=== PATIENT | female | born 1935 | race Caucasian/White ===

== ENCOUNTER → 2016-12-23 | Outpatient (CLI) | payer OTHER ==
[~2016-12-23] MED LIST: AMLO2.5T PO; CALC-51 PO; CMD4 PO; GLUCTAB7 PO; METO50TA7 PO; PRED1SUS OPL; VITAMIN E PO
[2016-12-23 09:48] LABS: INR 1.9 (0.9-1.1); PROTHROMBIN TIME (PATIENT) 21.1 SECONDS (9.0-12.0)
== END | disposition home or self-care (01) ==
LOC: C.LABVPSUW 09:26
PROVIDERS: ATTEND Internal Medicine Critical Care Medicine
DX: I48.91 Unspecified atrial fibrillation (principal)

== ENCOUNTER → 2017-01-20 | Outpatient (CLI) | payer OTHER ==
[2017-01-20 10:54] LABS: INR 1.5 (0.9-1.1); PROTHROMBIN TIME (PATIENT) 16.4 SECONDS (9.0-12.0)
== END | disposition home or self-care (01) ==
LOC: C.LABVPSUW 10:23
PROVIDERS: ATTEND Internal Medicine Critical Care Medicine
DX: I48.91 Unspecified atrial fibrillation (principal)

== ENCOUNTER → 2017-02-05 | Outpatient (CLI) | payer OTHER ==
[2017-02-05 09:11] LABS: PROTHROMBIN TIME (PATIENT) 22.4 SECONDS (9.0-12.0)
== END | disposition home or self-care (01) ==
LOC: C.LABVPSUW 08:43
PROVIDERS: ATTEND Internal Medicine Critical Care Medicine
DX: I48.91 Unspecified atrial fibrillation (principal)

== ENCOUNTER → 2017-03-05 | Outpatient (CLI) | payer OTHER ==
[2017-03-05 09:59] LABS: PROTHROMBIN TIME (PATIENT) 22.4 SECONDS (9.0-12.0)
== END ==
LOC: C.LABVPSUW 09:01
PROVIDERS: ATTEND Internal Medicine Critical Care Medicine
DX: I48.91 Unspecified atrial fibrillation (principal)

== ENCOUNTER → 2017-04-03 | Outpatient (CLI) | payer OTHER ==
[2017-04-03 09:22] LABS: INR 1.8 (0.9-1.1); PROTHROMBIN TIME (PATIENT) 20.3 SECONDS (9.0-12.0)
== END ==
LOC: C.LABVPSUW 09:01
PROVIDERS: ATTEND Internal Medicine Critical Care Medicine
DX: I48.91 Unspecified atrial fibrillation (principal)

== ENCOUNTER → 2017-04-15 | Day surgery (SDC) | payer OTHER ==
[2017-04-09 09:56] VITALS: Ht 162.6 cm; Wt 50.9 kg
[~2017-04-15] VITALS: Ht 162.6 cm; Wt 50.9 kg
[~2017-04-15] MED LIST changes: +500ML BSS 0.3ML EPI 1:1000PF IRRIG ONE; +ACETAMINOPHEN 325 MG TAB PO PRN; +ATROPINE SULFATE 0.1 MG/ML 5ML SYR IV PRN; +AcetaZOLAMIDE 250 MG TAB PO SCH; +BETAXOLOL HCL 0.25% OP SUSP PER DROP CHARGE OPL SCH; +BRIMONIDINE TART 0.2% OP SOLN PER DROP CHARGE ONE; +BSS FLUSH ONE; +ENDOCOAT 0.85ML SYRINGE INT OCU ONE; +EpINEphrine INJ 1MG/ML AMP 1 MG/ML AMP ONE; +LACTATED RINGER'S 1000ML 500 ML IV SCH; +LIDOCAINE 4% OP SOLN DROP CHARGE ONE; +LIDOCAINE 4% OP SOLN DROP CHARGE OPL SCH; +LIDOCAINE HCL 1% MPF 2 ML VIAL ONE; +MIDAZOLAM HCL 1 MG/ML 2ML VIAL ONE; +MIX: 4ML BSS 1ML EPI 1:1000 PF INSTIL ONE; +MOXIFLOXACIN OPH SOLN PER DROP CHARGE ONE; +OCUCOAT 1 ML SOLN IO ONE; +PHENYLEPHRINE HCL 10% OP SOLN 5 ML BTL OPL SCH; +POVIDONE-IODINE OP SOLN 30 ML BTL ONE; +PROPARACAINE 0.5% OP SOLN PER DROP CHARGE OPL SCH; +PROPARACAINE HCL 0.5% OP SOLN 15 ML BTL OPL ONE; +TOBRAMYCIN/DEXAMETHASONE OPH OINT PER APPLN CHARGE ONE
[2017-04-15] MEDS: PHENYLEPHRINE HCL 2.5% OP SOLN PER DROP CHARGE OPL SCH ×2 (06:37→06:44)
[2017-04-15] MEDS: TROPICAMIDE 1% OP SOLN PER DROP CHARGE OPL SCH ×2 (06:38→06:45)
--- NOTE | 2017-04-15 06:38 | History & Physical Bridge - [place] ---
H&P Re-Evaluation Bridge Note: I have examined the patient, reviewed the History & Physical and in the interval since the performance of the History & Physical I have noted the following changes of clinical significance: No changes noted
[2017-04-15] MEDS: CYCLOPENTOLATE HCL 1% OP SOLN PER DROP CHARGE OPL SCH ×2 (06:41→06:46)
[2017-04-15] MEDS: MOXIFLOXACIN OPH SOLN PER DROP CHARGE OPL SCH ×2 (06:42→06:50)
--- NOTE | 2017-04-15 07:27 | Discharge Instructions-SurgCtr ---
Discharge Instructions Date of Service April 15, 2017. Visit Reason for Visit: Cataract Left Eye Discharge Discharge Diagnosis / Problem: lens implant left eye Discharge Goals Goal(s): Improve function Activity Recommendations Activity Limitations: resume your previous activity Lifting Limitations: no more than 10 pounds Exercise/Sports Limitations: gradually increase as tolerated May Resume Sexual Activity: when tolerated Shower/Bathe: tomorrow Driving or Machine Use: resume 1 day after discharge Anesthesia . Post Anesthesia Instructions: If you have had General Anesthesia or IV Sedation: * Do not drive today. * Resume driving when surgeon permits. * Do not make important decisions or sign legal documents today. * Call surgeon for: 1. Temperature elevations greater than 101 degrees F. 2. Uncontrollable pain. 3. Excessive bleeding. 4. Persistent nausea and vomiting. 5. Medication intolerance (nausea, vomiting or rash). * For nausea and vomiting use only clear liquids such as: tea, soda, bouillon until nausea subsides, then gradually increase diet as tolerated. * If you have any concerns or questions, call your surgeon's office. If physician is unavailable and it is an emergency, call 911 or go to the nearest emergency room. . Instructions / Follow-Up Instructions / Follow-Up ACTIVITY RECOMMENDATIONS: * Light activities. * Mild irritation and blurred vision are common for the first few days. * You may walk outside, read, watch television. * Redness around the white part of the eye is common. MEDICATIONS: Resume previous medications unless instructed otherwise by your surgeon. * Take white Diamox (Acetazolamide) tablet at 1 pm today. Start all eye drops at 1 pm today: * Eye drops (today and tomorrow): Prednisone - one drop in operative eye every 3 hours while awake Ofloxacin - one drop in operative eye every 3 hours while awake SPECIAL CARE INSTRUCTIONS: * Tape plastic shield over eye to sleep at night. Call your doctor at with any concerns or problems. FOLLOW UP VISIT: Follow-up with Dr Walker at [place] office as scheduled. Diet Recommendations Home Diet: no limitations Procedures Procedures Performed: LEFT EYE FEMTOSECOND LASER Pending Studies Studies pending at discharge: no Medical Emergencies . Who to Call and When: Medical Emergencies: If at any time you feel your situation is an emergency, please call 911 immediately. . Non-Emergent Contact Non-Emergency issues call your: Assemblyman Or Woman Call Non-Emergent contact if: your pain is not controlled [phone] . . "Provider Documentation" section prepared by Xavier Walker. .
--- NOTE | 2017-04-15 07:32 | [facility] Operative Report ---
Operative Report Date of Service April 15, 2017. Operative Report 1. PREOPERATIVE DIAGNOSIS: Senile nuclear cataract, left eye. 2. POSTOPERATIVE DIAGNOSIS: Senile nuclear cataract, left eye. 3. PROCEDURE: Phacoemulsification of left cataract with posterior chamber lens implant, type Technis, model Symfony ZXR00, power +26.5 diopters. ANESTHESIA: Local standby. SURGEON: Dr. Walker. COMPLICATIONS: None. OPERATING TIME: 10 minutes. 4. OPERATION AND FINDINGS: DESCRIPTION OF PROCEDURE: The left pupil was dilated. The patient was transported to the femto laser room. The Femto Laser was used to make he primary incision, the astigmatic incisions, to open the capsule, and to soften the nucleus. Patient was transported to the operating room. The anesthetic was administered using a topical technique. The left eye was prepped and draped. A speculum was placed. The chamber was filled with Amvisc Plus and Endocoat. Epinephrine solution was used. A paracentesis was placed. The nucleus was hydrodissected. The lens was removed with phacoemulsification. Time was 3.85 seconds. The aspiration unit was used to remove the cortex. The capsule was filled with Amvisc Plus. The lens implant was folded and placed into the capsule. The incision was hydrated. The Amvisc was aspirated. The wound was secure. The chamber was deep. The pupil was round. Brimonidine, TobraDex ointment and Vigamox solution were placed. The speculum was removed. The patient was returned to the Recovery Room in stable condition. I attest to the content of the Intraoperative Record and any orders documented therein. Any exceptions are noted below. The scribe's documentation has been prepared in my presence, under my direction and personally reviewed by me in its entirety. I confirm that the note above accurately reflects all work, treatment, procedures, and medical decision making performed by me. I personally scribed for Xavier Walker M.D. ([place]) on 04/15/17 at 07:32. Electronically submitted by Hanny HAYNES).
[2017-04-15 07:38] VITALS: TEMP 36.8
[2017-04-15 07:51] VITALS: BP 152/87; PULSE 65; O2SAT 97
--- NOTE | 2017-04-15 07:56 | Anesthesia Progress Nt - [facility] ---
Anesthesia Post Op Note Date & Time April 15, 2017 at 07:57 Vital Signs Pain Intensity: 0 Vital Signs Past 12 Hours Date Time Temp Pulse Resp B/P Pulse Ox O2 Delivery O2 Flow Rate FiO2 04/15/17 07:51 65 20 152/87 97 Room Air 04/15/17 07:38 36.8 64 20 153/86 98 Room Air 04/15/17 07:06 80 16 196/104 95 04/15/17 07:03 78 16 209/104 96 04/15/17 06:43 190/89 04/15/17 06:35 190/111 04/15/17 06:32 36.9 73 16 179/106 96 Room Air Notes Mental Status: alert / awake / arousable, participated in evaluation Pt Amnestic to Procedure: Yes Nausea / Vomiting: adequately controlled Pain: adequately controlled Airway Patency, RR, SpO2: stable & adequate BP & HR: stable & adequate Hydration State: stable & adequate Anesthetic Complications: no major complications apparent
== END | disposition home or self-care (01) ==
LOC: X.SURG 06:11
PROVIDERS: ATTEND Specialist
DX: H25.12 Age-related nuclear cataract, left eye (principal); I10 Essential (primary) hypertension; I48.91 Unspecified atrial fibrillation; Z86.73 Personal history of transient ischemic attack (TIA), and cerebral infarction without residual deficits; Z68.1 Body mass index [BMI] 19.9 or less, adult; Z79.01 Long term (current) use of anticoagulants

== ENCOUNTER → 2017-04-29 | Day surgery (SDC) | payer OTHER ==
[2017-04-24 10:36] VITALS: Ht 162.6 cm; Wt 50.9 kg
[~2017-04-29] VITALS: Ht 162.6 cm; Wt 50.9 kg
[~2017-04-29] MED LIST changes: +AMVISC PLUS 0.8ML SYRINGE INT OCU ONE; -BETAXOLOL HCL 0.25% OP SUSP PER DROP CHARGE OPL SCH; +BETAXOLOL HCL 0.25% OP SUSP PER DROP CHARGE OPR SCH; -BSS FLUSH ONE; -LIDOCAINE 4% OP SOLN DROP CHARGE ONE; -LIDOCAINE 4% OP SOLN DROP CHARGE OPL SCH; +LIDOCAINE 4% OP SOLN DROP CHARGE OPR SCH; -PHENYLEPHRINE HCL 10% OP SOLN 5 ML BTL OPL SCH; +PHENYLEPHRINE HCL 10% OP SOLN 5 ML BTL OPR SCH; -PROPARACAINE 0.5% OP SOLN PER DROP CHARGE OPL SCH; +PROPARACAINE 0.5% OP SOLN PER DROP CHARGE OPR SCH; -PROPARACAINE HCL 0.5% OP SOLN 15 ML BTL OPL ONE; +PROPARACAINE HCL 0.5% OP SOLN 15 ML BTL OPR ONE
[2017-04-29] MEDS: PHENYLEPHRINE HCL 2.5% OP SOLN PER DROP CHARGE OPR SCH ×2 (06:37→06:43)
[2017-04-29] MEDS: TROPICAMIDE 1% OP SOLN PER DROP CHARGE OPR SCH ×2 (06:38→06:44)
[2017-04-29] MEDS: CYCLOPENTOLATE HCL 1% OP SOLN PER DROP CHARGE OPR SCH ×2 (06:39→06:45)
[2017-04-29] MEDS: MOXIFLOXACIN OPH SOLN PER DROP CHARGE OPR SCH ×2 (06:41→06:51)
[2017-04-29] MEDS: LIDOCAINE 4% OP SOLN DROP CHARGE ONE ×2 (06:54→07:35)
--- NOTE | 2017-04-29 07:44 | Discharge Instructions-SurgCtr ---
Discharge Instructions Date of Service Apr 29, 2017. Visit Reason for Visit: Right Cataract Discharge Discharge Diagnosis / Problem: lens implant right eye Discharge Goals Goal(s): Improve function Activity Recommendations Activity Limitations: resume your previous activity Lifting Limitations: no more than 10 pounds Exercise/Sports Limitations: gradually increase as tolerated May Resume Sexual Activity: when tolerated Shower/Bathe: tomorrow Driving or Machine Use: resume 1 day after discharge Anesthesia . Post Anesthesia Instructions: If you have had General Anesthesia or IV Sedation: * Do not drive today. * Resume driving when surgeon permits. * Do not make important decisions or sign legal documents today. * Call surgeon for: 1. Temperature elevations greater than 101 degrees F. 2. Uncontrollable pain. 3. Excessive bleeding. 4. Persistent nausea and vomiting. 5. Medication intolerance (nausea, vomiting or rash). * For nausea and vomiting use only clear liquids such as: tea, soda, bouillon until nausea subsides, then gradually increase diet as tolerated. * If you have any concerns or questions, call your surgeon's office. If physician is unavailable and it is an emergency, call 911 or go to the nearest emergency room. . Instructions / Follow-Up Instructions / Follow-Up ACTIVITY RECOMMENDATIONS: * Light activities. * Mild irritation and blurred vision are common for the first few days. * You may walk outside, read, watch television. * Redness around the white part of the eye is common. MEDICATIONS: Resume previous medications unless instructed otherwise by your surgeon. * Take white Diamox (Acetazolamide) tablet at 1 pm today. Start all eye drops at 1 pm today: * Eye drops (today and tomorrow): Prednisone - one drop in operative eye every 3 hours while awake Ofloxacin - one drop in operative eye every 3 hours while awake SPECIAL CARE INSTRUCTIONS: * Tape plastic shield over eye to sleep at night. Call your doctor at with any concerns or problems. FOLLOW UP VISIT: Follow-up with Dr Walker at [place] office as scheduled. Diet Recommendations Home Diet: no limitations Procedures Procedures Performed: RIGHT EYE FEMTOSECOND LASER Pending Studies Studies pending at discharge: no Medical Emergencies . Who to Call and When: Medical Emergencies: If at any time you feel your situation is an emergency, please call 911 immediately. . Non-Emergent Contact Non-Emergency issues call your: Highballer Call Non-Emergent contact if: your pain is not controlled [phone] . . "Provider Documentation" section prepared by Xavier Walker. .
--- NOTE | 2017-04-29 07:49 | [facility] Operative Report ---
Operative Report Date of Service Apr 29, 2017. Operative Report 1. PREOPERATIVE DIAGNOSIS: Senile nuclear cataract, right eye. 2. POSTOPERATIVE DIAGNOSIS: Senile nuclear cataract, right eye. 3. PROCEDURE: Phacoemulsification of right cataract with posterior chamber lens implant, type Technis, model Symfony ZXR00, power +26.0 diopters. ANESTHESIA: Local standby. SURGEON: Dr. Walker. COMPLICATIONS: None. OPERATING TIME: 10 minutes. 4. OPERATION AND FINDINGS: DESCRIPTION OF PROCEDURE: The right pupil was dilated. The patient was transported to the Femto Laser room. The Femto Laser was used to make the primary incision, the astigmatic incisions, to open the capsule, and to break up the lens. The patient was transported to the operating room. The anesthetic was administered using a topical technique. The right eye was prepped and draped. A speculum was placed. A clear corneal incision was formed. The chamber was filled with Amvisc Plus and Endocoat. Epinephrine solution was used. A paracentesis was placed. A capsulorrhexis was performed. The nucleus was hydrodissected. The lens was removed with phacoemulsification. Time was 3.52 seconds. The aspiration unit was used to remove the cortex. The capsule was filled with Amvisc Plus. The lens implant was folded and placed into the capsule. The incision was hydrated. The astigmatic incisions were open. The Amvisc was aspirated. The wound was secure. The chamber was deep. The pupil was round. Brimonidine, TobraDex ointment and Vigamox solution were placed. The speculum was removed. The patient was returned to the Recovery Room in stable condition. I attest to the content of the Intraoperative Record and any orders documented therein. Any exceptions are noted below. The scribe's documentation has been prepared in my presence, under my direction and personally reviewed by me in its entirety. I confirm that the note above accurately reflects all work, treatment, procedures, and medical decision making performed by me. I personally scribed for Xavier Walker M.D. ([place]) on 04/29/17 at 07:49. Electronically submitted by Hanny HAYNES).
--- NOTE | 2017-04-29 07:53 | Anesthesia Progress Nt - [facility] ---
Anesthesia Post Op Note Date & Time Apr 29, 2017 at 07:52 Vital Signs Pain Intensity: 0 Vital Signs Past 12 Hours Date Time Temp Pulse Resp B/P (MAP) Pulse Ox O2 Delivery O2 Flow Rate FiO2 04/29/17 07:47 36.3 61 14 168/89 (115) 99 Room Air 04/29/17 07:26 78 18 168/83 95 04/29/17 07:19 76 16 182/98 95 04/29/17 06:30 36.4 63 16 179/81 (113) 95 Room Air Notes Mental Status: alert / awake / arousable, participated in evaluation Pt Amnestic to Procedure: Yes Nausea / Vomiting: adequately controlled Pain: adequately controlled Airway Patency, RR, SpO2: stable & adequate BP & HR: stable & adequate Hydration State: stable & adequate Anesthetic Complications: no major complications apparent
[2017-04-29 08:04] VITALS: BP 157/97; PULSE 67; O2SAT 96
== END | disposition home or self-care (01) ==
LOC: X.SURG 06:10
PROVIDERS: ATTEND Specialist
DX: H25.11 Age-related nuclear cataract, right eye (principal); I10 Essential (primary) hypertension; Z79.01 Long term (current) use of anticoagulants; Z79.82 Long term (current) use of aspirin

== ENCOUNTER → 2017-05-01 | Outpatient (CLI) | payer OTHER ==
[~2017-05-01] MED LIST changes: -500ML BSS 0.3ML EPI 1:1000PF IRRIG ONE; -ACETAMINOPHEN 325 MG TAB PO PRN; -AMVISC PLUS 0.8ML SYRINGE INT OCU ONE; -ATROPINE SULFATE 0.1 MG/ML 5ML SYR IV PRN; -AcetaZOLAMIDE 250 MG TAB PO SCH; -BETAXOLOL HCL 0.25% OP SUSP PER DROP CHARGE OPR SCH; -BRIMONIDINE TART 0.2% OP SOLN PER DROP CHARGE ONE; -ENDOCOAT 0.85ML SYRINGE INT OCU ONE; -EpINEphrine INJ 1MG/ML AMP 1 MG/ML AMP ONE; -LACTATED RINGER'S 1000ML 500 ML IV SCH; -LIDOCAINE 4% OP SOLN DROP CHARGE OPR SCH; -LIDOCAINE HCL 1% MPF 2 ML VIAL ONE; -MIDAZOLAM HCL 1 MG/ML 2ML VIAL ONE; -MIX: 4ML BSS 1ML EPI 1:1000 PF INSTIL ONE; -MOXIFLOXACIN OPH SOLN PER DROP CHARGE ONE; -OCUCOAT 1 ML SOLN IO ONE; -PHENYLEPHRINE HCL 10% OP SOLN 5 ML BTL OPR SCH; -POVIDONE-IODINE OP SOLN 30 ML BTL ONE; -PROPARACAINE 0.5% OP SOLN PER DROP CHARGE OPR SCH; -PROPARACAINE HCL 0.5% OP SOLN 15 ML BTL OPR ONE; -TOBRAMYCIN/DEXAMETHASONE OPH OINT PER APPLN CHARGE ONE
[2017-05-01 09:29] LABS: INR 1.9 (0.9-1.1)
== END | disposition home or self-care (01) ==
LOC: C.LABVPSUW 09:04
PROVIDERS: ATTEND Internal Medicine Critical Care Medicine
DX: I48.91 Unspecified atrial fibrillation (principal)

== ENCOUNTER → 2017-05-29 | Outpatient (CLI) | payer OTHER ==
[2017-05-29 10:18] LABS: INR 1.8 (0.9-1.1)
== END | disposition home or self-care (01) ==
LOC: C.LABVPSUW 09:32
PROVIDERS: ATTEND Internal Medicine Critical Care Medicine
DX: I48.91 Unspecified atrial fibrillation (principal)

== ENCOUNTER → 2017-06-29 | Outpatient (CLI) | payer OTHER ==
[2017-06-29 11:12] LABS: INR 2.5 (0.9-1.1); PROTHROMBIN TIME (PATIENT) 27.3 SECONDS (9.0-12.0)
== END | disposition home or self-care (01) ==
LOC: C.LABVPSUW 10:35
PROVIDERS: ATTEND Internal Medicine Critical Care Medicine
DX: I48.91 Unspecified atrial fibrillation (principal)

== ENCOUNTER → 2017-07-29 | Outpatient (CLI) | payer OTHER ==
[2017-07-29 10:55] LABS: INR 2.8 (0.9-1.1)
== END | disposition home or self-care (01) ==
LOC: C.LABVPSUW 09:52
PROVIDERS: ATTEND Internal Medicine Critical Care Medicine
DX: I48.91 Unspecified atrial fibrillation (principal)

== ENCOUNTER → 2017-08-26 | Outpatient (CLI) | payer OTHER ==
[2017-08-26 10:00] LABS: INR 2.5 (0.9-1.1); PROTHROMBIN TIME (PATIENT) 28.3 SECONDS (9.0-12.0)
== END | disposition home or self-care (01) ==
LOC: C.LABVPSUW 09:23
PROVIDERS: ATTEND Internal Medicine Critical Care Medicine
DX: I48.91 Unspecified atrial fibrillation (principal)

== ENCOUNTER → 2017-10-28 | Outpatient (CLI) | payer OTHER ==
[2017-10-28 09:33] LABS: INR 2.8 (0.9-1.1); PROTHROMBIN TIME (PATIENT) 29.3 SECONDS (9.0-12.0)
== END | disposition home or self-care (01) ==
LOC: C.LABVPSUW 09:09
PROVIDERS: ATTEND Internal Medicine Critical Care Medicine
DX: I48.91 Unspecified atrial fibrillation (principal)

== ENCOUNTER → 2017-11-25 | Outpatient (CLI) | payer OTHER ==
[~2017-11-25] MED LIST changes: +ACET-1256 PO; +ASPI81TA28 PO; +CALC-393 PO; -METO50TA7 PO; +METO50TA8 PO; +SULF1TAB92 PO; +WARF2TAB8 PO
[2017-11-25 09:38] LABS: INR 2.9 (0.9-1.1)
== END | disposition home or self-care (01) ==
LOC: C.LABSPEC 08:51
PROVIDERS: ATTEND Internal Medicine Critical Care Medicine
DX: I48.91 Unspecified atrial fibrillation (principal)

== ENCOUNTER → 2018-01-25 | Outpatient (CLI) | payer OTHER ==
[~2018-01-25] MED LIST changes: -ACET-1256 PO; -ASPI81TA28 PO; -CALC-393 PO; -SULF1TAB92 PO; -WARF2TAB8 PO
[2018-01-25 09:14] LABS: INR 2.3 (0.9-1.1)
== END | disposition home or self-care (01) ==
LOC: C.LABVPSUW 08:51
PROVIDERS: ATTEND Internal Medicine Critical Care Medicine
DX: I48.91 Unspecified atrial fibrillation (principal)

== ENCOUNTER → 2018-02-23 | Outpatient (CLI) | payer OTHER ==
[2018-02-23 10:27] LABS: INR 2.5 (0.9-1.1)
== END | disposition home or self-care (01) ==
LOC: C.LABVPSUW 09:18
PROVIDERS: ATTEND Internal Medicine Critical Care Medicine
DX: I48.91 Unspecified atrial fibrillation (principal)

== ENCOUNTER → 2018-03-26 | Outpatient (CLI) | payer OTHER ==
[2018-03-26 10:19] LABS: INR 1.9 (0.9-1.1)
== END | disposition home or self-care (01) ==
LOC: C.LABVPSUW 08:56
PROVIDERS: ATTEND Internal Medicine Critical Care Medicine
DX: I48.91 Unspecified atrial fibrillation (principal)

== ENCOUNTER 2018-04-03 10:08 | Emergency (ER) | payer OTHER ==
[~2018-04-03] VITALS: Ht 162.6 cm; Wt 50.1 kg
[2018-04-03 10:10] VITALS: TEMP 36.4; Ht 162.6 cm; Wt 50.1 kg
[2018-04-03 10:49] LABS: BASO % 0.5 %; BASO ABS # 0.04 K/uL (0-0.2); EOS % 3.9 %; EOS ABS # 0.34 K/uL (0-0.5); HEMATOCRIT 43.2 % (37-47); HEMOGLOBIN 14.5 g/dL (12.0-16.0); IG# 0.04 K/uL (0.00-0.02); LYMPH % 21.7 %; MEAN CELL VOLUME 93.3 fL (80-100); MEAN CORPUSCULAR HEMOGLOBIN 31.3 pg (25-34); MEAN CORPUSCULAR HGB CONC 33.6 g/dl (32-36); MEAN PLATELET VOLUME 9.6 fL (7.4-10.4); MONO % 5.6 %; MONO ABS # 0.49 K/uL (0.11-0.59); NEUT % 67.8 %; NEUT ABS # 5.94 K/uL (1.4-6.5); PLATELET COUNT 181 K/uL (130-400); RED CELL DISTRIBUTION WIDTH CV 13.6 % (11.5-14.5); RED CELL DISTRIBUTION WIDTH SD 46.4 fL (36.4-46.3); WHITE BLOOD COUNT 8.75 K/uL (4.8-10.8)
[2018-04-03 10:57] LABS: INR 1.9 (0.9-1.1); PTT PATIENT 38.8 SECONDS (21.0-31.0)
--- NOTE | 2018-04-03 11:03 | EMERGENCY ROOM VISIT NOTE ---
History Report prepared by Maximo: Isaac Real Under the Supervision of: Dr. Jovanny Ahuja M.D. First contact with patient: 10:14 Chief Complaint: URINARY SYMPTOMS Stated Complaint: BLADDER INFECTION Nursing Triage Summary: pt reports that she was diagnosed with a bladder infection on 03/21/18 and placed on abx. pt reports symptoms returned this morning. c/o blood in urine, frequency and burning. History of Present Illness The patient is an 82 year old female who presents to the Emergency Room with complaints of constant urinary burning beginning two hours ago. The patient states that she was diagnosed with a UTI two weeks ago and has had recurrent symptoms since. She notes that she went to [facility] and was given cefuroxime with relief of her symptoms. She complained of nausea and diarrhea while on the antibiotic. She currently complains of an increased urge to urinate and lower back pain. She denies any fever and vomiting. The patient states that she has had four UTIs in the past. She notes that she is on warfarin for a mild stroke five years ago. Source of History: patient Onset: two hours ago Position: other (bladder) Quality: burning Timing: constant Associated Symptoms: + nausea, + back pain (lower), + diarrhea (heavy mucus) , No fevers, No vomiting Note: The patient also complains of an increased urge to urinate. Review of Systems See HPI for pertinent positives & negatives. A total of 10 systems reviewed and were otherwise negative. Past Medical & Surgical Medical Problems: (1) Stroke (2) UTI (urinary tract infection) Family History No pertinent family history stated. Social History Smoking Status: Never Smoker Marital Status: Housing Status: lives with family Occupation Status: retired Current/Historical Medications Scheduled Acetaminophen (Tylenol), 500 MG PO BID Amlodipine (Norvasc), 2.5 MG PO QAM Aspirin (Aspirin Ec), 81 MG PO DAILY Calcium Carbonate (Calcium), 600 MG PO BID Oahwdzhlphk-Segwpdhinyg-Jiu C- (Glucosamine Chondroitin), 1 TAB PO BID Metoprolol Succ (Toprol Xl) (Toprol-Xl), 25 MG PO HS Trimethoprim/Sulfamethoxazole (Bactrim 400MG/80MG), 1 TAB PO Q12H Warfarin Sod (Jantoven), 2 MG PO 2XWK Warfarin Sod (Jantoven), 4 MG PO 5XWK Allergies Coded Allergies: NO KNOWN DRUG ALLERGIES (Verified Allergy, Unknown, ., 04/29/17) Ciprofloxacin (Unverified Adverse Reaction, Severe, nausea,headache, diarrhea, 04/03/18) Cefuroxime (Unverified Adverse Reaction, Intermediate, nausea,headache, diarrhea, 04/03/18) Cephalexin (Unverified Adverse Reaction, Intermediate, nausea,headache, diarrhea, 04/03/18) Penicillins (Unverified Adverse Reaction, Intermediate, nausea,headache, diarrhea, 04/03/18) Physical Exam Vital Signs Date Time Temp Pulse Resp B/P (MAP) Pulse Ox O2 Delivery O2 Flow Rate FiO2 04/03/18 12:06 80 18 134/92 94 Room Air 04/03/18 10:10 36.4 85 20 188/84 95 Room Air Physical Exam GENERAL: Patient is in no acute distress. HEENT: No acute trauma, normocephalic atraumatic, mucous membranes moist, no nasal congestion, no scleral icterus. NECK: No stridor, no adenopathy, no meningismus, trachea is midline. LUNGS: Clear to auscultation bilaterally, no wheeze, no rhonchi, breath sounds equal. HEART: Without murmurs gallops or rubs, regular rate and rhythm. ABDOMEN: Soft, nontender, bowel sounds positive, no hernias, no peritonitis. BACK: Possible mild left flank discomfort with percussion. EXTREMITIES: No cyanosis or edema, full range of motion of all the joints without pain or difficulty, no signs for acute trauma. NEUROLOGIC: Oriented x 3, no acute motor or sensory deficits, no focal weakness. SKIN: No rash, no jaundice, no diaphoresis. Medical Decision & Procedures Laboratory Results 04/03/18 10:35 Red Blood Count 4.63, Mean Corpuscular Volume 93.3, Mean Corpuscular Hemoglobin 31.3, Mean Corpuscular Hemoglobin Concent 33.6, Mean Platelet Volume 9.6, Neutrophils (%) (Auto) 67.8, Lymphocytes (%) (Auto) 21.7, Monocytes (%) (Auto) 5.6, Eosinophils (%) (Auto) 3.9, Basophils (%) (Auto) 0.5, Neutrophils # (Auto) 5.94, Lymphocytes # (Auto) 1.90, Monocytes # (Auto) 0.49, Eosinophils # (Auto) 0.34, Basophils # (Auto) 0.04 04/03/18 10:35 Test 04/03/18 10:35 White Blood Count 8.75 K/uL (4.8-10.8) Red Blood Count 4.63 M/uL (4.2-5.4) Hemoglobin 14.5 g/dL (12.0-16.0) Hematocrit 43.2 % (37-47) Mean Corpuscular Volume 93.3 fL (80-100) Mean Corpuscular Hemoglobin 31.3 pg (25-34) Mean Corpuscular Hemoglobin Concent 33.6 g/dl (32-36) Platelet Count 181 K/uL (130-400) Mean Platelet Volume 9.6 fL (7.4-10.4) Neutrophils (%) (Auto) 67.8 % Lymphocytes (%) (Auto) 21.7 % Monocytes (%) (Auto) 5.6 % Eosinophils (%) (Auto) 3.9 % Basophils (%) (Auto) 0.5 % Neutrophils # (Auto) 5.94 K/uL (1.4-6.5) Lymphocytes # (Auto) 1.90 K/uL (1.2-3.4) Monocytes # (Auto) 0.49 K/uL (0.11-0.59) Eosinophils # (Auto) 0.34 K/uL (0-0.5) Basophils # (Auto) 0.04 K/uL (0-0.2) RDW Standard Deviation 46.4 fL (36.4-46.3) RDW Coefficient of Variation 13.6 % (11.5-14.5) Immature Granulocyte % (Auto) 0.5 % Immature Granulocyte # (Auto) 0.04 K/uL (0.00-0.02) Prothrombin Time 19.6 SECONDS (9.0-12.0) Prothromb Time International Ratio 1.9 (0.9-1.1) Activated Partial Thromboplast Time 38.8 SECONDS (21.0-31.0) Partial Thromboplastin Ratio 1.5 Urine Color RED Urine Appearance CLOUDY (CLEAR) Urine pH 6.5 (4.5-7.5) Urine Specific [place] 1.010 (1.000-1.030) Urine Protein 2+ (NEG) Urine Glucose (UA) NEG (NEG) Urine Ketones NEG (NEG) Urine Occult Blood 3+ (NEG) Urine Nitrite NEG (NEG) Urine Bilirubin NEG (NEG) Urine Urobilinogen NEG (NEG) Urine Leukocyte Esterase MODERATE (NEG) Urine RBC >30 /hpf (0-4) Urine WBC >30 /hpf (0-5) Urine Epithelial Cells 0-5 /lpf (0-5) Urine Bacteria NEG (NEG) Anion Gap 5.0 mmol/L (3-11) Est Creatinine Clear Calc Drug Dose 33.7 ml/min Estimated GFR () 60.3 Estimated GFR (Non- 52.1 BUN/Creatinine Ratio 22.9 (10-20) Calcium Level 10.2 mg/dl (8.5-10.1) Laboratory results reviewed by me. Medications Administered Medications (Trade) Dose Ordered Sig/Lillie Route Start Time Stop Time Status Last Admin Dose Admin Trimethoprim/ Sulfamethoxazole (Septra 400/80MG Tab) 1 tab NOW STAT PO 04/03/18 12:06 04/03/18 12:08 DC 04/03/18 12:26 1 TAB ED Course 1015: The patient was evaluated in room A12. A complete history and physical exam was performed. 1152: I reevaluated and updated the patient. 1206: Septra 400/80MG Tab 1 tab PO 1230: Reevaluated the patient. Discussed results and discharge instructions: She verbalized understanding and agreement. The patient is ready for discharge. Medical Decision Differential diagnoses include: renal failure, coagulopathy, failed outpatient treatment, UTI, malignancy, and pyelonephritis. There is no leukocytosis or worrisome anemia. No significant electrolyte abnormality or kidney failure. INR is 1.9 consistent with her Coumadin use. Urinalysis does suggest infection. Urine culture is pending. The patient is not toxic or hypoxic. She is not febrile. She has multiple allergies to different medications. She has done well in the past on Bactrim despite being on Coumadin. The patient was given a dose of oral Bactrim. She was given a prescription for 7 days. She was told to be sure to be watchful of her INR as this may change on Bactrim. She understands. The patient was encouraged to follow with her doctor's office and return here for worsening symptoms. Medication Reconcilliation Current Medication List: was personally reviewed by me Blood Pressure Screening Patient's blood pressure: Elevated blood pressure Blood pressure disposition: Referred to PCP Impression Primary Impression: UTI (urinary tract infection) Additional Impression: History of Coumadin therapy Scribe Attestation The scribe's documentation has been prepared under my direction and personally reviewed by me in its entirety. I confirm that the note above accurately reflects all work, treatment, procedures, and medical decision making performed by me. Departure Information Dispostion Home / Self-Care Prescriptions Trimethoprim/Sulfamethoxazole (Bactrim 400MG/80MG) Tab 1 TAB PO Q12H for 7 Days, #14 TAB Prov: Jovanny Ahuja M.D. 04/03/18 Referrals [facility] (PCP) Forms HOME CARE DOCUMENTATION FORM, IMPORTANT VISIT INFORMATION Patient Instructions My [facility] Additional Instructions bactrim 2 tab 2x per day for 1 week be sure to see the coumadin center to have INR followed--call thursday as the antibiotic may cause changes to your levels return if worsening, have fever or if vomiting we will call with any issues needing a change in your antibiotic based on the urine culture Problem Qualifiers
[2018-04-03] MEDS ORDERED: WARF2TAB8 PO ×2 (11:10)
[2018-04-03] MEDS ORDERED: ASPI81TA28 PO (11:10)
[2018-04-03] MEDS ORDERED: CALC-393 PO (11:10)
[2018-04-03] MEDS ORDERED: ACET-1256 PO (11:10)
[2018-04-03 11:24] LABS: CALCIUM 10.2 mg/dl (8.5-10.1); POTASSIUM 3.9 mmol/L (3.5-5.1)
[2018-04-03 12:06] VITALS: BP 134/92; PULSE 80; O2SAT 94
[2018-04-03] MEDS ORDERED: SULFAMETHOXAZOLE/TRIMETHOPRIM 400/80MG TAB PO STA (12:06)
[2018-04-03] MEDS ORDERED: SULF1TAB92 PO (12:11)
== END 2018-04-03 12:30 | disposition home or self-care (01) ==
LOC: C.EDB 10:10 → C.EDA 12:30
DX: N39.0 Urinary tract infection, site not specified (principal); Z79.01 Long term (current) use of anticoagulants; Z86.73 Personal history of transient ischemic attack (TIA), and cerebral infarction without residual deficits; Z79.82 Long term (current) use of aspirin; Z79.899 Other long term (current) drug therapy; Z88.1 Allergy status to other antibiotic agents; Z88.0 Allergy status to penicillin; Z88.8 Allergy status to other drugs, medicaments and biological substances

== ENCOUNTER → 2018-04-06 | Outpatient (CLI) | payer OTHER ==
[~2018-04-06] MED LIST changes: +ACET-1256 PO; +ASPI81TA28 PO; +CALC-393 PO; -CALC-51 PO; -CMD4 PO; -PRED1SUS OPL; +SULF1TAB92 PO; -VITAMIN E PO; +WARF2TAB8 PO
[2018-04-06 09:58] LABS: INR 2.6 (0.9-1.1)
== END ==
LOC: C.LABVPSUA 09:25
PROVIDERS: ATTEND Internal Medicine Critical Care Medicine
DX: I48.91 Unspecified atrial fibrillation (principal)

== ENCOUNTER → 2018-07-02 | Outpatient (CLI) | payer OTHER ==
[~2018-07-02] MED LIST changes: -SULF1TAB92 PO
[2018-07-02 09:09] LABS: INR 2.5 (0.9-1.1)
== END | disposition home or self-care (01) ==
LOC: C.LABVPSUW 08:44
PROVIDERS: ATTEND Internal Medicine Critical Care Medicine
DX: I48.91 Unspecified atrial fibrillation (principal)

== ENCOUNTER 2022-11-27 22:15 | Observation (INO) ==
--- NOTE | 2022-11-27 22:46 | Emergency Department Note ---
Impression & Plan Fall from standing, Traumatic ecchymosis of face, Hematoma of scalp, Abrasion of face, Supratherapeutic INR, Generalized weakness ED Provider Note HISTORY OF PRESENT ILLNESS: Patient is an 87-year-old female presenting after a fall from standing. Patient reports she was standing [place] when she lost her footing and fell, striking her left side of her face on the floor. She is on Coumadin. She reports that her INR today was 8.8 and her Coumadin was held today. She denies any chest pain, shortness of breath or lightheadedness prior to the fall. Denies any numbness or tingling or weakness in extremities. Denies any chest pain or abdominal pain. Currently complaining of a headache. Denies any changes in vision. ROS: Constitutional: No fever, chills, or weakness +fall from standing Skin: No rash or diaphoresis HENT: No congestion +headache Eyes: No vision changes Cardio: No chest pain, palpitations or leg swelling Respiratory: No cough, wheezing or shortness of breath GI: No nausea, vomiting, diarrhea, constipation : No dysuria, polyuria MSK: No joint or back pain Neuro: No loss of sensation, confusion, focal deficits, numbness, tingling Psychiatric: No mood changes PHYSICAL EXAM: Constitutional: Patient appears in no acute distress. HENT: Head: Normocephalic. Skin tear to left crown of head. Ecchymosis to upper occipital ridge of left eyelid with active bleeding from a puncture wound. Eyes: EOMI, PERRL Mouth/Throat: Mucous membranes moist. Neck: Trachea midline. Neck supple. No midline cervical spine TTP. Cardiovascular: RRR, No murmurs, rubs or gallops. Intact distal pulses. Pulmonary/Chest: No respiratory distress. Breath sounds clear and equal bilaterally. No wheezes or rales. No chest wall tenderness to palpation. Abdominal: BS +. Abdomen soft, no tenderness, rebound or guarding. Back: No midline spinal tenderness, no paraspinal tenderness, no CVA tenderness. Musculoskeletal: No edema, tenderness or deformity noted. Skin: Warm and dry. No rash, erythema, pallor or cyanosis Psychiatric: Appropriate mood and affect for situation. Neurological: Alert and keenly responsive. CN II-XII grossly intact, moving all extremities equally and fully. MDM: - Vitals signs stable. - History obtained via patient and EMS. Patient presents with facial trauma after fall from standing. She is on Coumadin. No reported loss of consciousness. - Chronic conditions affecting care: paroxysmal Afib (on Coumadin) - Differential diagnoses include, but are not limited to: fracture; intracranial bleed or stroke; acute coronary syndrome - Order placed for continuous cardiac monitoring. At this time, monitor showed rate of 75 bpm with normal rhythm, per my interpretation. - External medical records reviewed. EMS sheet reviewed and no medications were given in route. Patient remained vitally stable in route to the hospital. - EKG reviewed by myself showed normal sinus rhythm. Rate of 90 bpm. No acute ischemic changes. Normal intervals. - CXR reviewed by myself negative for acute cardiopulmonary pathology. - Laboratory workup interpreted by myself showed normal WBC; stable electrolytes; supratherapeutic INR (7.6); normal troponin. - CT brain wo contrast negative for acute intracranial pathology, per my interpretation. CT cervical spine wo contrast negative for acute fracture, per radiology. CT facial bones negative for fracture but noted to have periorbital hematoma on left. - Patient was given 5 mg IV vitamin K for supratherapeutic INR. - Patient's wounds on scalp and face covered with quick clot and pressure dressing with successful hemostasis. - Attempted to get the patient out of bed and ambulate her, as she lives alone. However, she was unable to get up on her own secondary to feeling weak. She lives home alone and I have concern about sending her home without her being able to ambulate independently. - Discussed patient's case with hospitalist for observation. - Patient to be admitted to [facility] hospitalist service for further evaluation and management. ASSESSMENT AND PLAN: Diagnosis: fall from standing; facial trauma; abrasions of face; traumatic ecchymosis of face; supratherapeutic INR; generalized weakness Plan: admit Past Med/Surg History Medical History (Updated 11/28/22 @ 02:03 by Shyann Thomas MD) Acute cerebrovascular insufficiency Acute cystitis with hematuria Acute upper respiratory infection, unspecified Bronchiectasis Fall Hypertension Lung infection Major depressive disorder Other polyosteoarthritis Other specified dermatitis Paroxysmal atrial fibrillation Tinea corporis Urge incontinence Family History (Updated 12/03/21 @ 14:39 by Celena Lai RN) Mother Hypertension Social History (Updated 12/03/21 @ 14:40 by Celena Lai RN) Smoking Status: Never smoker Hx Alcohol Use: No Preferred Language: Albanian Communication Ability: Effective marital status: current occupational status: retired Feels Safe at Home: Yes Allergies Allergies Allergy/AdvReac Type Severity Reaction Status Date / Time ciprofloxacin [Cipro] AdvReac Severe nausea,head Verified 11/28/22 00:13 ache,diarrh ea cefuroxime AdvReac Intermediate nausea,head Verified 11/28/22 00:13 ache,diarrh ea cephalexin AdvReac Intermediate nausea,head Verified 11/28/22 00:13 ache,diarrh ea Penicillins AdvReac Intermediate nausea,head Verified 11/28/22 00:13 ache,diarrh ea Home Meds Home Medications Medication Instructions Recorded Confirmed acetaminophen 500 mg capsule 1,000 mg PO BID PRN Pain 12/03/21 11/28/22 amlodipine 2.5 mg tablet (Norvasc) 2.5 mg PO DAILY 12/03/21 11/28/22 aspirin 81 mg tablet,delayed 81 mg PO DAILY 12/03/21 11/28/22 release calcium carbonate 600 mg calcium 1,200 mg PO DAILY 12/03/21 11/28/22 (1,500 mg) tablet (Calcium) metoprolol tartrate 50 mg tablet 50 mg PO BID 12/03/21 11/28/22 warfarin 2 mg tablet See Rx Instructions .Route .COMPLEX 11/28/22 11/28/22 Results & Data (ED) Vital Signs Vital Signs - 24 hr 11/27/22 22:11 11/27/22 22:45 11/27/22 23:39 Temperature 37.0 C 37.0 C Temperature Source Oral Oral Pulse Rate 86 Pulse Rate [Right Finger] 86 82 Pulse Rhythm Regular Pulse Rhythm [Right Finger] Regular Regular Pulse Strength Normal Pulse Strength [Right Finger] Normal Normal Respiratory Rate 16 18 16 Respiratory Effort / Characteristics Non-Labored Non-Labored Non-Labored Respiratory Depth Normal Normal Normal Respiratory Pattern Regular Regular Regular Blood Pressure 158/94 H Blood Pressure [Right Arm] 158/94 H 158/83 H Blood Pressure Mean 115 Blood Pressure Mean [Right Arm] 115 108 Pulse Oximetry 96 96 94 Oxygen Delivery Method Room Air Room Air Room Air Sepsis Recent Fever Within 48 Hours No Sepsis New/Unexplained Change in Mental Status N/A Sepsis Action Taken by Nursing No Action Required 11/28/22 01:00 11/28/22 02:47 Temperature Temperature Source Pulse Rate Pulse Rate [Right Finger] 76 76 Pulse Rhythm Pulse Rhythm [Right Finger] Regular Regular Pulse Strength Pulse Strength [Right Finger] Normal Normal Respiratory Rate 16 14 Respiratory Effort / Characteristics Non-Labored Non-Labored Respiratory Depth Normal Normal Respiratory Pattern Regular Regular Blood Pressure Blood Pressure [Right Arm] 160/79 H 117/93 Blood Pressure Mean Blood Pressure Mean [Right Arm] 106 101 Pulse Oximetry 94 93 Oxygen Delivery Method Room Air Room Air Sepsis Recent Fever Within 48 Hours Sepsis New/Unexplained Change in Mental Status Sepsis Action Taken by Nursing Laboratory Data 11/27/22 22:34 11/27/22 22:34 Lab Results 11/27/22 11/27/22 11/27/22 Range/Units 22:34 22:34 22:34 WBC 7.40 (4.8-10.8) K/ul RBC 4.39 (3.93-5.22) M/uL Hgb 13.6 (12.0-16.0) g/dl POC Hgb (12.0-16.0) g/dl Hct 40.0 (34.1-44.9) % POC Hct (37-47) % MCV 91.1 (80.0-100.0) fL MCH 31.0 (25.0-34.0) pg MCHC 34.0 (32.0-36.0) g/dL RDW Std Deviation 47.9 H (36.4-46.3) fL RDW Coeff of Rachel 14.2 (11.5-14.5) % Plt Count 207 (130-400) K/uL MPV 9.9 (9.4-12.3) fL Immature Gran % (Auto) 0.3 % Neut % (Auto) 60.2 % Lymph % (Auto) 25.3 % [place] % (Auto) 7.3 % Eos % (Auto) 5.4 % Baso % (Auto) 1.5 % Neut # (Auto) 4.46 (1.4-6.5) K/uL Lymph # (Auto) 1.87 (1.2-3.4) K/uL [place] # (Auto) 0.54 (0.24-0.82) K/uL Eos # (Auto) 0.40 (0-0.50) K/uL Baso # (Auto) 0.11 (0-0.2) K/uL Immature Gran # (Auto) 0.02 (0.00-0.02) K/uL PT 72.9 H (9.0-12.0) Seconds INR 7.6 H* (0.9-1.1) POC Sodium (135-144) mmol/L Sodium 136 (136-145) mmol/L POC Potassium (3.3-5.0) mmol/L Potassium 4.1 (3.5-5.1) mmol/L POC Chloride (101-112) mmol/L Chloride 104 (98-107) mmol/L Carbon Dioxide 24 (21-32) mmol/L POC Total CO2 (24-31) mmol/L Anion Gap 8 (3-11) POC Anion Gap (16-25) mmol/L POC BUN (7-18) mg/dl BUN 45 H (6-23) mg/dl Creatinine 1.53 H (0.6-1.2) mg/dl POC Creatinine (0.6-1.3) mg/dl Est Cr Clr Drug Dosing 20.1 ml/min Est GFR ( Amer) 34.8 ml/min Est GFR (Non-Af Amer) 30.1 ml/min BUN/Creatinine Ratio 29.4 H (10-20) Glucose 138 H (70-99(Fasting)) mg/dl POC Glucose (other) (70-99) mg/dl Calcium 10.0 (8.5-10.1) mg/dl POC Ioniz Calcium Anne-Marie (1.12-1.32) mmol/l Total Bilirubin 0.5 (0.2-1.0) mg/dl AST 19 (13-39) U/L ALT 17 (7-52) U/L Alkaline Phosphatase 71 (34-104) U/L Troponin I High Sens 5.5 (0-14) pg/ml Total Protein 7.2 (6.0-8.3) gm/dl Albumin 4.0 (3.4-5.0) gm/dl Globulin 3.2 (2.5-4.0) gm/dl Albumin/Globulin Ratio 1.3 (0.9-2) 11/27/22 Range/Units 22:40 WBC (4.8-10.8) K/ul RBC (3.93-5.22) M/uL Hgb (12.0-16.0) g/dl POC Hgb 13.6 (12.0-16.0) g/dl Hct (34.1-44.9) % POC Hct 40 (37-47) % MCV (80.0-100.0) fL MCH (25.0-34.0) pg MCHC (32.0-36.0) g/dL RDW Std Deviation (36.4-46.3) fL RDW Coeff of Rachel (11.5-14.5) % Plt Count (130-400) K/uL MPV (9.4-12.3) fL Immature Gran % (Auto) % Neut % (Auto) % Lymph % (Auto) % [place] % (Auto) % Eos % (Auto) % Baso % (Auto) % Neut # (Auto) (1.4-6.5) K/uL Lymph # (Auto) (1.2-3.4) K/uL [place] # (Auto) (0.24-0.82) K/uL Eos # (Auto) (0-0.50) K/uL Baso # (Auto) (0-0.2) K/uL Immature Gran # (Auto) (0.00-0.02) K/uL PT (9.0-12.0) Seconds INR (0.9-1.1) POC Sodium 139 (135-144) mmol/L Sodium (136-145) mmol/L POC Potassium 3.9 (3.3-5.0) mmol/L Potassium (3.5-5.1) mmol/L POC Chloride 106 (101-112) mmol/L Chloride (98-107) mmol/L Carbon Dioxide (21-32) mmol/L POC Total CO2 24 (24-31) mmol/L Anion Gap (3-11) POC Anion Gap 14.0 L (16-25) mmol/L POC BUN 42 H (7-18) mg/dl BUN (6-23) mg/dl Creatinine (0.6-1.2) mg/dl POC Creatinine 1.6 H (0.6-1.3) mg/dl Est Cr Clr Drug Dosing ml/min Est GFR ( Amer) ml/min Est GFR (Non-Af Amer) ml/min BUN/Creatinine Ratio (10-20) Glucose (70-99(Fasting)) mg/dl POC Glucose (other) 136 H (70-99) mg/dl Calcium (8.5-10.1) mg/dl POC Ioniz Calcium [place] 1.30 (1.12-1.32) mmol/l Total Bilirubin (0.2-1.0) mg/dl AST (13-39) U/L ALT (7-52) U/L Alkaline Phosphatase (34-104) U/L Troponin I High Sens (0-14) pg/ml Total Protein (6.0-8.3) gm/dl Albumin (3.4-5.0) gm/dl Globulin (2.5-4.0) gm/dl Albumin/Globulin Ratio (0.9-2) Administered Medications Discontinued Medications Phytonadione 5 mg/ Dextrose 50.5 mls @ 101 mls/hr IV ONE ONE Stop: 11/28/22 00:25 Last Infusion: 11/28/22 01:06 Dose: 0 mls/hr Documented By: Admin: 11/28/22 00:20 Dose: 101 mls/hr Documented By: FESTUS Discharge Plan Visit Data Chief Complaint: Fall Stated Complaint: GLF, head lac ED Provider: Shyann Thomas Discharge Problem: Fall from standing, Traumatic ecchymosis of face, Hematoma of scalp, Abrasion of face, Supratherapeutic INR, Generalized weakness Patient Disposition: Admitted As Inpatient Discharge Instructions Krames/Other Patient Handouts: ED Hematoma Activity Restrictions/Additional Instructions: Please return to the emergency department if you have any continued bleeding of your facial wounds, worsening confusion, any changes in vision or headache, new numbness or tingling or weakness in your extremities, or any new or worsening symptoms. Please hold tomorrow's dose of Coumadin, as your INR was significantly elevated Prescriptions Prescriptions: No Action calcium carbonate [Calcium 600] 600 mg calcium (1,500 mg) tablet 1,200 mg PO DAILY aspirin 81 mg tablet,delayed release (DR/EC) 81 mg PO DAILY acetaminophen 500 mg capsule 1,000 mg PO BID PRN (Reason: Pain) amlodipine [Norvasc] 2.5 mg tablet 2.5 mg PO DAILY metoprolol tartrate 50 mg tablet 50 mg PO BID warfarin 2 mg tablet See Rx Instructions .ROUTE .COMPLEX Rx Instructions: ON HOLD PER PT INR (8) DO NOT TAKE 11/27/22-11/30/22, REPEAT INR. THEN DOSE WILL BE GIVEN. NORMALLY PER PT TAKES 2 MG ON MON, WED, & FRI. TAKES 4 MG ON SUN, TUES, THURS, & SAT. [facility] -
[2022-11-27 22:52] LABS: iSTAT Creatinine 1.6 mg/dl (0.6-1.3); iSTAT Hemoglobin 13.6 g/dl (12.0-16.0); iSTAT Ionized Calcium 1.3 mmol/l (1.12-1.32); iSTAT Potassium 3.9 mmol/L (3.3-5.0)
[2022-11-27 22:53] LABS: Basophils # (auto) 0.11 K/uL (0-0.2); Basophils % (auto) 1.5 %; Eosinophils % (auto) 5.4 %; Hemoglobin 13.6 g/dl (12.0-16.0); Immature Granulocytes # (auto) 0.02 K/uL (0.00-0.02); Immature Granulocytes % (auto) 0.3 %; Lymphocytes # (auto) 1.87 K/uL (1.2-3.4); Lymphocytes % (auto) 25.3 %; Mean Corpuscular Volume 91.1 fL (80.0-100.0); Mean Platelet Volume 9.9 fL (9.4-12.3); Monocytes # (auto) 0.54 K/uL (0.24-0.82); Monocytes % (auto) 7.3 %; Neutrophils # (auto) 4.46 K/uL (1.4-6.5); Neutrophils % (auto) 60.2 %; Platelet Count 207 K/uL (130-400); RDW Coefficient of Variation 14.2 % (11.5-14.5); RDW Standard Deviation 47.9 fL (36.4-46.3); Red Blood Count 4.39 M/uL (3.93-5.22)
[2022-11-27 23:11] LABS: Prothrombin Time 72.9 Seconds (9.0-12.0)
[2022-11-27 23:19] LABS: Troponin I High Sensitivity 5.5 pg/ml (0-14)
[2022-11-27 23:22] LABS: Albumin Globulin Ratio 1.3 (0.9-2); BUN Creatinine Ratio 29.4 (10-20); Bilirubin,Total 0.5 mg/dl (0.2-1.0); Creatinine Clr Calc Pharmacy 20.1 ml/min; Est GFR (African American) 34.8 ml/min; Est GFR (Non-African American) 30.1 ml/min; Globulin 3.2 gm/dl (2.5-4.0); Potassium 4.1 mmol/L (3.5-5.1); Total Protein 7.2 gm/dl (6.0-8.3)
[2022-11-27 23:25] LABS: INR 7.6 (0.9-1.1)
[2022-11-27] MEDS ORDERED: PHYTONADIONE 5 MG in DEXTROSE 5% 50 ML IV ONE (23:56)
[2022-11-28] MEDS ORDERED: SODIUM CHLORIDE 0.9% 1000ML 500 ML IV ONE (03:06)
--- NOTE | 2022-11-28 03:32 | History & Physical Report ---
Date of Service November 28, 2022 Assessment & Plan (1) Fall from standing: (2) Traumatic ecchymosis of face: (3) Hematoma of scalp: (4) Abrasion of face: (5) Supratherapeutic INR: (6) Generalized weakness: (7) Frequent UTI: (8) Dysuria: (9) Paroxysmal atrial fibrillation: (10) Acute cerebrovascular insufficiency: (11) Hypertension: Plan Fall from standing/generalized weakness- Patient had been treated for urinary tract infection with Bactrim for 7 days, has acute renal insufficiency and signs of dehydration, and likely are both contributing to her generalized weakness and fall. The patient will be admitted to telemetry for serial cardiac enzymes, serial EKG's, cardiac rhythm monitoring and a 2-D echocardiogram with Dopplers. Consult PT/OT Anticipate patient to return back to the [facility] Supratherapeutic INR/paroxysmal atrial fibrillation- INR 7.6 on admission Patient did receive 5 mg of vitamin K while in the ED Repeat laboratories in the morning, and dose vitamin K again if needed Paroxysmal atrial fibrillation/hypertension- Continue metoprolol tartrate 50 mg p.o. twice daily with hold parameters Hold amlodipine Hold aspirin due to head trauma Reversing INR until in therapeutic zone, then resume warfarin Recurrent urinary tract infection- Follow urine culture sensitivity hold off on any further antibiotics at this time since she just completed an extended course of Bactrim Acute kidney injury- Creatinine 1.53 with baseline 0.89 Placed on NSS at 80 mils per hour x1 L, reassess in the morning History of Present Illness Chief Complaint: The patient is sent to the emergency department from the [facility] after a ground level fall, of which she does not remember the interval up to the fall or the fall itself. Primary Care Provider: [facility] The patient is a 87-year-old female with a past medical history including recurrent urinary tract infection, arthritis, chronic anticoagulation with warfarin, hypertension and paroxysmal atrial fibrillation. She presents to the emergency department after a ground-level fall, and was treated in the ED for a left scalp hematoma and abrasion. Significant abnormal laboratories: INR 7.6, glucose 138, creatinine 1.53. Imaging studies: Normal CT scan of the C-spine, face, and head. Chest x-ray showed no acute findings, but did show findings suggestive of chronic interstitial lung disease Allergies Allergy/AdvReac Type Severity Reaction Status Date / Time ciprofloxacin [Cipro] AdvReac Severe nausea,head Verified 11/28/22 00:13 ache,diarrh ea cefuroxime AdvReac Intermediate nausea,head Verified 11/28/22 00:13 ache,diarrh ea cephalexin AdvReac Intermediate nausea,head Verified 11/28/22 00:13 ache,diarrh ea Penicillins AdvReac Intermediate nausea,head Verified 11/28/22 00:13 ache,diarrh ea Home Medications Medication Instructions Recorded Confirmed Type acetaminophen 500 mg capsule 1,000 mg PO BID PRN Pain 12/03/21 11/28/22 History amlodipine 2.5 mg tablet (Norvasc) 2.5 mg PO DAILY 12/03/21 11/28/22 History aspirin 81 mg tablet,delayed 81 mg PO DAILY 12/03/21 11/28/22 History release calcium carbonate 600 mg calcium 1,200 mg PO DAILY 12/03/21 11/28/22 History (1,500 mg) tablet (Calcium) metoprolol tartrate 50 mg tablet 50 mg PO BID 12/03/21 11/28/22 History warfarin 2 mg tablet See Rx Instructions .Route .COMPLEX 11/28/22 11/28/22 History Past Med/Surg History Medical History (Updated 11/28/22 @ 05:13 by Urbano Darnell MD) Acute cerebrovascular insufficiency Acute cystitis with hematuria Acute upper respiratory infection, unspecified Bronchiectasis Fall Hypertension Lung infection Major depressive disorder Other polyosteoarthritis Other specified dermatitis Paroxysmal atrial fibrillation Tinea corporis Urge incontinence Family History (Updated 12/03/21 @ 14:39 by Celena Lai RN) Mother Hypertension Social History (Updated 12/03/21 @ 14:40 by Celena Lia RN) Smoking Status: Never smoker Hx Alcohol Use: No Preferred Language: Luxembourgish Communication Ability: Effective marital status: current occupational status: retired Feels Safe at Home: Yes Review of Systems Review of Systems: The patient denies chest pain, palpitations, shortness of b reath, dyspnea on exertion, cough, lower extremity swelling, sore throat, fevers, chills, sweats, nausea, vomiting, diarrhea , constipation, abdominal pain, pelvic pain, blood in urine or stool, dysuria, urinary frequency or urgency, imbalance, focal or generalized weakness, numbness or tingling in arms or legs, generalized arthralgias or myalgias, back or neck pain, or night sweats. The review of systems is otherwise negative other than for that already noted above, and at least 10 systems have been reviewed. Physical Exam Physical Exam: The patient is awake, alert and oriented 3, well developed and well nourished, in lying in bed and in no acute distress. HEENT--PERRL, EOMI, mucous membranes and oropharynx dry. Head is wrapped with compression wrap over laceration Neck--supple. No JVD. No bruits. Thyroid normal, trachea midline, no adenopathy. Heart--normal S1 and S2. No murmurs, rubs or gallops. Lungs--clear bilaterally, no respiratory distress, no accessory muscle use. Abdomen--normal bowel sounds and soft. Nontender. Nondistended, no hernias or masses, no organomegaly. Extremities--no cyanosis or clubbing. No edema. There are good distal pulses b/l. Dermatologic--normal skin turgor, normal color, no abnormal lymph nodes, no rash. Neurologic--cranial nerves II through XII grossly intact. Rheumatologic--normal range of motion. Psychiatric--normal affect. Results & Data Results & Data ([facility]) Vital Signs (Past 12 Hours) Vital Signs Temp Pulse Pulse Resp BP BP Pulse Ox 11/28/22 03:10 84 14 117/93 93 11/28/22 02:47 76 14 117/93 93 11/28/22 01:00 76 16 160/79 H 94 11/27/22 23:39 82 16 158/83 H 94 11/27/22 22:45 37.0 C 86 18 158/94 H 96 11/27/22 22:11 37.0 C 86 16 158/94 H 96 O2 Del Method 11/28/22 03:10 Room Air 11/28/22 02:47 Room Air 11/28/22 01:00 Room Air 11/27/22 23:39 Room Air 11/27/22 22:45 Room Air 11/27/22 22:11 Room Air Laboratory Results Laboratory Results WBC 7.40 K/ul (4.8-10.8) 11/27/22 22:34 RBC 4.39 M/uL (3.93-5.22) 11/27/22 22:34 Hgb 13.6 g/dl (12.0-16.0) 11/27/22 22:34 POC Hgb 13.6 g/dl (12.0-16.0) 11/27/22 22:40 Hct 40.0 % (34.1-44.9) 11/27/22 22:34 POC Hct 40 % (37-47) 11/27/22 22:40 MCV 91.1 fL (80.0-100.0) 11/27/22 22:34 MCH 31.0 pg (25.0-34.0) 11/27/22 22:34 MCHC 34.0 g/dL (32.0-36.0) 11/27/22: RDW Std Deviation 47.9 fL (36.4-46.3) H 11/27/22: RDW Coeff of Rachel 14.2 % (11.5-14.5) 11/27/22: Plt Count 207 K/uL (130-400) 11/27/22 22:34 MPV 9.9 fL (9.4-12.3) 11/27/22 22:34 Immature Gran % (Auto) 0.3 % 11/27/22: Neut % (Auto) 60.2 % 11/27/22 22:34 Lymph % (Auto) 25.3 % 11/27/22 22:34 [place] % (Auto) 7.3 % 11/27/22 22:34 Eos % (Auto) 5.4 % 11/27/22:34 Baso % (Auto) 1.5 % 11/27/22: Neut # (Auto) 4.46 K/uL (1.4-6.5) 11/27/22 22:34 Lymph # (Auto) 1.87 K/uL (1.2-3.4) 11/27/22 22:34 [place] # (Auto) 0.54 K/uL (0.24-0.82) 11/27/22 22:34 Eos # (Auto) 0.40 K/uL (0-0.50) 11/27/22 22:34 Baso # (Auto) 0.11 K/uL (0-0.2) 11/27/22 22:34 Immature Gran # (Auto) 0.02 K/uL (0.00-0.02) 11/27/22 22:34 PT 72.9 Seconds (9.0-12.0) H 11/27/22 22:34 INR 7.6 (0.9-1.1) H* 11/27/22 22:34 POC Sodium 139 mmol/L (135-144) 11/27/22 22:40 Sodium 136 mmol/L (136-145) 11/27/22 22:34 POC Potassium 3.9 mmol/L (3.3-5.0) 11/27/22 22:40 Potassium 4.1 mmol/L (3.5-5.1) 11/27/22 22:34 POC Chloride 106 mmol/L (101-112) 11/27/22 22:40 Chloride 104 mmol/L (98-107) 11/27/22 22:34 Carbon Dioxide 24 mmol/L (21-32) 11/27/22 22:34 POC Total CO2 24 mmol/L (24-31) 11/27/22 22:40 Anion Gap 8 (3-11) 11/27/22 22:34 POC Anion Gap 14.0 mmol/L (16-25) L 11/27/22 22:40 POC BUN 42 mg/dl (7-18) H 11/27/22 22:40 BUN 45 mg/dl (6-23) H 11/27/22 22:34 Creatinine 1.53 mg/dl (0.6-1.2) H 11/27/22 22:34 POC Creatinine 1.6 mg/dl (0.6-1.3) H 11/27/22 22:40 Est Cr Clr Drug Dosing 20.1 ml/min 11/27/22 22:34 Est GFR ( Amer) 34.8 ml/min 11/27/22 22:34 Est GFR (Non-Af Amer) 30.1 ml/min 11/27/22 22:34 BUN/Creatinine Ratio 29.4 (10-20) H 11/27/22 22:34 Glucose 138 mg/dl (70-99(Fasting)) H 11/27/22 22:34 POC Glucose (other) 136 mg/dl (70-99) H 11/27/22 22:40 Calcium 10.0 mg/dl (8.5-10.1) 11/27/22 22:34 POC Ioniz Calcium Anne-Marie 1.30 mmol/l (1.12-1.32) 11/27/22 22:40 Total Bilirubin 0.5 mg/dl (0.2-1.0) 11/27/22 22:34 AST 19 U/L (13-39) 11/27/22 22:34 ALT 17 U/L (7-52) 11/27/22 22:34 Alkaline Phosphatase 71 U/L (34-104) 11/27/22 22:34 Total Creatine Kinase 52 U/L (26-192) 11/27/22 22:34 Troponin I High Sens 5.5 pg/ml (0-14) 11/27/22 22:34 Total Protein 7.2 gm/dl (6.0-8.3) 11/27/22 22:34 Albumin 4.0 gm/dl (3.4-5.0) 11/27/22 22:34 Globulin 3.2 gm/dl (2.5-4.0) 11/27/22 22:34 Albumin/Globulin Ratio 1.3 (0.9-2) 11/27/22 22:34 SARS-CoV-2, RNA, NAAT NEGATIVE (NEGATIVE) 11/28/22 Unknown Code Status & VTE Plan Code Status Full code VTE Prophylaxis Plan VTE Prophylaxis will be ordered: Yes
[2022-11-28] MEDS ORDERED: SODIUM CHLORIDE 0.9% 1000ML 1,000 ML IV SCH (05:17)
[2022-11-28] MEDS ORDERED: ONDANSETRON INJ 2 MG/ML 2 ML VIAL IV PRN (05:17)
--- NOTE | 2022-11-28 05:18 | Billing Data ---
Date of Service November 28, 2022 Coding Level of Care Code 54467 INT INP/OBS CARE
[2022-11-28] MEDS: ACETAMINOPHEN 325 MG TAB PO PRN (05:40)
--- NOTE | 2022-11-28 07:50 | XRay Report ---
XR chest 1V portable CLINICAL HISTORY: fall from standing COMPARISON STUDY: Chest radiograph March 25, 2019. FINDINGS: There is no pneumothorax or pleural effusion. There is no consolidation or evidence for pul monary edema. Cardiomediastinal silhouette is unremarkable. Linear left basilar opacity favors atelec tasis. A 3.5 x 1 cm irregular right upper lobe density is similar to chest radiograph April 21, 2019. IMPRESSION: 1. No acute cardiopulmonary findings. 2. No significant change in a 3.5 x 1 cm irregular elongated right upper lobe density. Given stabilit y, scarring is favored. A pulmonary lesion could appear similar. This could be assessed with a noneme rgent chest CT. ACT 112: Negative or not required by law. Electronically signed by: Myron Aburto M.D. 11/28/2022 7:48 AM
--- NOTE | 2022-11-28 08:00 | CT Scan Report ---
CERVICAL SPINE CT CT DOSE: 1701.52 mGy.cm HISTORY: fall from standing TECHNIQUE: Multiaxial CT images of the cervical spine were performed and reformatted in the sagittal and coronal plane without the use of contrast. A dose lowering technique was utilized adhering to e principles of ALARA. COMPARISON: None. FINDINGS: No fractures. There is 3 mm of anterolisthesis of C4 on C5. Moderate to severe degenerative disc disease seen throughout the cervical spine. Prevertebral soft tissues and the C1-C2 interval ar e intact. No pneumothorax. Linear scarlike density within the lung apices most pronounced on the righ t. IMPRESSION: No fractures within the cervical spine. ACT 112: Negative or not required by law. Electronically signed by: Willy Warren M.D. 11/28/2022 7:57 AM
--- NOTE | 2022-11-28 08:08 | CT Scan Report ---
CT OF THE HEAD WITHOUT CONTRAST CLINICAL HISTORY: fall from standing; on Coumadin COMPARISON STUDY: No previous studies for comparison. TECHNIQUE: Helical axial images of the head were obtained without IV contrast. Automated exposure con trol was utilized for the study. A dose lowering technique was utilized adhering to the principles o f ALARA. FINDINGS: No acute intracranial hemorrhage, midline shift or mass effect is present. Ventricular dila tation is due to atrophy. White matter hypodensity suggests small vessel disease. The basal cisterns are patent. No extra-axial collections are present. There are no findings to suggest acute dural sinu s thrombosis or acute territorial infarct. There is no calvarial fracture. Left periorbital/forehead contusions are present. Left globe is intact. There is no retrobulbar hematoma. IMPRESSION: 1. No acute intracranial findings. 2. Left periorbital/forehead contusions. No fracture. ACT 112: Negative or not required by law. Electronically signed by: Myron Aburto M.D. 11/28/2022 8:07 AM
[2022-11-28] MEDS: CALCIUM CARBONATE 1250MG TAB PO SCH (08:17)
[2022-11-28] MEDS: METOPROLOL TARTRATE 50 MG TAB PO SCH ×2 (08:17→20:30)
--- NOTE | 2022-11-28 08:53 | CT Scan Report ---
MAXILLOFACIAL CT CT DOSE: HISTORY: fall from standing; left eye ecchymosis TECHNIQUE: Multiaxial CT images of the maxillofacial region were performed and reformatted in the cor onal plane without the use of contrast. A dose lowering technique was utilized adhering to the princ ipljaime of SHERON. COMPARISON: None. FINDINGS: The visualized cervical spine, skull base, pterygoid plates, nasal bones, lamina papyracea, orbital floors, mandible, and zygomatic arches are intact. No fractures. Left periorbital soft tissu e swelling. IMPRESSION: No fractures within the maxillofacial region. Left periorbital soft tissue swelling. ACT 112: Negative or not required by law. Electronically signed by: Willy Warren M.D. 11/28/2022 8:51 AM
[2022-11-28 13:33] LABS: Appearance Urine Cloudy (Clear); Bacteria Urine Automated Negative (Negative); Bilirubin Urine Negative (Negative); Blood Urine 3+ (Negative); Color Urine Orange; Glucose Urine UA Negative (Negative); Ketones Urine Negative (Negative); Leukocyte Esterase Urine Trace (Negative); Nitrite Urine Negative (Negative); Protein Urine Trace (Negative); RBC Urine Automated >30 /hpf (0-4); Urobilinogen Urine Negative (Negative); pH Urine 6.5 (4.5-7.5)
--- NOTE | 2022-11-28 14:06 | Hospitalist Progress Note ---
Date of Service November 28, 2022 Assessment & Plan (1) Fall from standing: Plan: OT and PT assessments requested. Supportive care. No fractures seen on x-rays (2) Traumatic ecchymosis of face: Plan: Facial CT scan negative for fracture. Supportive care. (3) Hematoma of scalp: Plan: Local care until resolved (4) Abrasion of face: Plan: Local care until resolved (5) Supratherapeutic INR: Plan: The Coumadin was held on admission and vitamin K administered for INR of 8.8. INR today is 2.0. Will restart Coumadin at low-dose and monitor lab studies daily (6) Generalized weakness: Plan: Supportive care. OT and PT assessments (7) Frequent UTI: Plan: No current UTI (8) Dysuria: Plan: Occurs during UTI (9) Paroxysmal atrial fibrillation: Plan: Stable. Continue current medical management (10) Acute cerebrovascular insufficiency: Plan: History of cerebrovascular insufficiency. Nothing acute. Supportive care. (11) Hypertension: Plan: Amlodipine was held on admission and subsequently restarted. Currently controlled (12) Acute kidney injury superimposed on chronic kidney disease: Plan: Mild. Resolved with intravenous fluids. Monitor intake and output. Serial labs Plan Anticipate eventual return to her long-term care facility. Probably tomorrowNovember 29 Admission and Anticipated Discharge Date Admission Date: November 28, 2022 Subjective Alert and oriented. She has left ocular periorbital ecchymoses from her fall. No fractures seen on facial CT scan. She received vitamin D in the ED for Coumadin toxicity with INR 8.8. INR is now down to 2.0. Coumadin will be restarted at low-dose. OT and PT evaluations requested. We will discontinue IV since oral intake appears to be adequate. Amlodipine and aspirin have been restarted. [facility]tic[facility], November 29 Review of Systems Review of Systems: Constitutional-no fever or chills ENT-left eye is swollen shut but vision is intact when eye lids are opened. No blurred vision, no double vision, no epistaxis, no sore throat Respiratory-no cough, no wheezing, no shortness of breath Cardiac-no palpitations, no chest pain, no syncope GI-no nausea, vomiting, diarrhea, melena, hematochezia -no urinary retention, no urinary incontinence, no dysuria, no hematuria Musculoskeletal-no joint pain, no muscle tenderness Skin-no bruising, no rashes, no pruritus Neuro-no isolated weakness, no paresthesia, no weakness Psych-no depression, no anxiety Physical Exam Physical Exam: General-alert and oriented x3, no fevers, no chills HEENT-left periorbital ecchymoses and swelling with left eyelids swollen shut. Pupils equal and reactive to light, extraocular muscles intact Neck-no lymphadenopathy or thyromegaly, trachea midline Chest-clear to auscultation percussion. No rales wheezing or rhonchi Cardiac-regular rate and rhythm, normal S1 and S2 Abdomen-normal bowel sounds, nontender, no hepatosplenomegaly Extremities-no cyanosis, clubbing, or edema Neuro-cranial nerves II through XII intact, motor and sensory function within normal limits, strength symmetrical , no focal deficits Psych-normal affect, normal mood Results & Data Results & Data ([facility]) Vital Signs (Past 12 Hours) Vital Signs Temp Pulse Pulse Resp BP BP Pulse Ox 11/28/22 07:00 73 11/28/22 11:14 37.0 C 67 20 125/67 94 11/28/22 07:07 36.6 C 75 20 127/64 95 11/28/22 05:15 36.5 C 87 18 166/77 H 94 11/28/22 04:52 76 16 145/77 H 92 11/28/22 03:10 84 14 117/93 93 11/28/22 02:47 76 14 117/93 93 O2 Del Method 11/28/22 07:00 11/28/22 11:14 Room Air 11/28/22 07:07 Room Air 11/28/22 05:15 Room Air 11/28/22 04:52 Room Air 11/28/22 03:10 Room Air 11/28/22 02:47 Room Air Laboratory Results 11/27/22 22:34 11/27/22 22:34 PG Care Time/CCT Total # of Minutes Spent Total Time Spent with Patient: Total time spent is greater than 50% in coordination of care (as documented) at patient's floor/unit and/or counseling patient: Coding Level of Care Code 06726 SUB INP/OBS CARE 3/50MIN Diagnoses Fall from standing W19.XXXA Traumatic ecchymosis of face S00.83XA Hematoma of scalp S00.03XA Abrasion of face S00.81XA Supratherapeutic INR R79.1 Generalized weakness R53.1 Frequent UTI N39.0 Dysuria R30.0 Paroxysmal atrial fibrillation I48.0 Acute cerebrovascular insufficiency I67.81 Hypertension I10 Acute kidney injury superimposed on chronic kidney disease N17.9; N18.9
--- NOTE | 2022-11-28 15:54 | Electrocardiogram Report ---
Test Reason : Blood Pressure : / mmHG Vent. Rate : 090 BPM Atrial Rate : 090 BPM P-R Int : 122 ms QRS Dur : 076 ms QT Int : 366 ms P-R-T Axes : 022 000 013 degrees QTc Int : 447 ms Poor data quality, interpretation may be adversely affected Sinus rhythm with Premature atrial complexes Possible Left atrial enlargement Septal infarct , age undetermined Abnormal ECG No previous ECGs available Confirmed by Xavier Reed ([id number]) on 11/28/2022 3:54:34 PM Referred By: REFERRED SELF Confirmed By:Xavier Reed
[2022-11-28] MEDS: WARFARIN SOD 2 MG TAB PO SCH (16:10)
[2022-11-29 08:59] LABS: Basophils # (auto) 0.09 K/uL (0-0.2); Basophils % (auto) 1.3 %; Eosinophils # (auto) 0.53 K/uL (0-0.50); Eosinophils % (auto) 7.5 %; Hematocrit (blood only) 39.2 % (34.1-44.9); Immature Granulocytes # (auto) 0.01 K/uL (0.00-0.02); Immature Granulocytes % (auto) 0.1 %; Mean Corpuscular Hemoglobin 30.6 pg (25.0-34.0); Mean Corpuscular Hgb Conc 33.2 g/dL (32.0-36.0); Mean Corpuscular Volume 92.2 fL (80.0-100.0); Mean Platelet Volume 9.8 fL (9.4-12.3); Monocytes # (auto) 0.57 K/uL (0.24-0.82); Neutrophils % (auto) 52.1 %; Platelet Count 199 K/uL (130-400); RDW Coefficient of Variation 14.1 % (11.5-14.5); RDW Standard Deviation 47.6 fL (36.4-46.3); Red Blood Count 4.25 M/uL (3.93-5.22)
[2022-11-29 09:04] LABS: INR 1.1 (0.9-1.1); Prothrombin Time 11.9 Seconds (9.0-12.0)
[2022-11-29 09:19] LABS: Albumin Level 3.9 gm/dl (3.4-5.0); BUN Creatinine Ratio 24.3 (10-20); Calcium 10.2 mg/dl (8.5-10.1); Creatinine Clr Calc Pharmacy 32.6 ml/min; Est GFR (African American) 56.2 ml/min; Est GFR (Non-African American) 48.5 ml/min; Magnesium 1.9 mg/dl (1.7-2.4); Phosphorus 2.7 mg/dl (2.5-4.9); Potassium 4.1 mmol/L (3.5-5.1)
[2022-11-29] MEDS: amLODIPine BESYLATE 5 MG TAB PO SCH (09:50)
[2022-11-29] MEDS: ASPIRIN 81 MG ECTAB PO SCH (09:50)
[2022-11-29] MEDS: METOPROLOL TARTRATE 50 MG TAB PO SCH ×2 (09:50→20:14)
[2022-11-29] MEDS: CALCIUM CARBONATE 1250MG TAB PO SCH (09:50)
[2022-11-29] MEDS: WARFARIN SOD 2 MG TAB PO SCH (17:09)
[2022-11-29] MEDS: ACETAMINOPHEN 325 MG TAB PO PRN (20:14)
--- NOTE | 2022-11-29 22:51 | Hospitalist Progress Note ---
Date of Service November 29, 2022 Assessment & Plan (1) Fall from standing: Plan: OT and PT assessments requested. Supportive care. No fractures seen on x-rays (2) Traumatic ecchymosis of face: Plan: Facial CT scan negative for fracture. Supportive care. (3) Hematoma of scalp: Plan: Local care until resolved (4) Abrasion of face: Plan: Local care until resolved (5) Supratherapeutic INR: Plan: The Coumadin was held on admission and vitamin K administered for INR of 8.8. INR today is 2.0. Will restart Coumadin at low-dose and monitor lab studies daily (6) Generalized weakness: Plan: Supportive care. OT and PT assessments Discussed with daughter who and wants to ensure the patient is safe at outside facility before she can be discharged (7) Frequent UTI: Plan: No current UTI (8) Dysuria: Plan: Occurs during UTI (9) Paroxysmal atrial fibrillation: Plan: Stable. Continue current medical management (10) Acute cerebrovascular insufficiency: Plan: History of cerebrovascular insufficiency. Nothing acute. Supportive care. (11) Hypertension: Plan: Amlodipine was held on admission and subsequently restarted. Currently controlled (12) Acute kidney injury superimposed on chronic kidney disease: Plan: Mild. Resolved with intravenous fluids. Monitor intake and output. Serial labs Plan Anticipate eventual return to her long-term care facility. Probably tomorrow, November 29 Admission and Anticipated Discharge Date Admission Date: November 28, 2022 Subjective Alert and oriented. She has left ocular periorbital ecchymoses from her fall that has not worsened. No fractures seen on facial CT scan. Discussed with patient's daughter who wants us to ensure that patient is safe before she can be placed with physical therapy Physical Exam Physical Exam: Head and ENT no thyroid enlargement trachea midline Left-sided ecchymosis improving Cardiovascular S1-S2 are normal no S3 Lungs bilateral air entry fair no wheezing Abdomen soft nondistended positive bowel sounds no rebound tenderness Extremity shows trace edema Neurologically no focal deficits Skin shows no rash no cyanosis Results & Data Results & Data ([facility]) Vital Signs (Past 12 Hours) Vital Signs Temp Pulse Pulse Resp BP Pulse Ox O2 Del Method 11/29/22 19:41 Room Air 11/29/22 18:20 36.4 C L 72 18 122/74 95 Room Air 11/29/22 16:44 63 11/29/22 15:43 36.4 C L 58 L 16 114/62 93 Room Air 11/29/22 11:37 36.2 C L 89 16 112/69 93 Room Air PG Care Time/CCT Total # of Minutes Spent Total Time Spent with Patient: Total time spent is greater than 50% in coordination of care (as documented) at patient's floor/unit and/or counseling patient: Coding Level of Care Code 30179 SUB INP/OBS CARE 2/35MIN Diagnoses Fall from standing W19.XXXA Traumatic ecchymosis of face S00.83XA Hematoma of scalp S00.03XA Abrasion of face S00.81XA Supratherapeutic INR R79.1 Generalized weakness R53.1 Frequent UTI N39.0 Dysuria R30.0 Paroxysmal atrial fibrillation I48.0 Acute cerebrovascular insufficiency I67.81 Hypertension I10 Acute kidney injury superimposed on chronic kidney disease N17.9; N18.9
[2022-11-30 06:39] LABS: Basophils # (auto) 0.07 K/uL (0-0.2); Eosinophils # (auto) 0.38 K/uL (0-0.50); Eosinophils % (auto) 5.6 %; Hematocrit (blood only) 35.6 % (34.1-44.9); Hemoglobin 11.9 g/dl (12.0-16.0); Immature Granulocytes # (auto) 0.02 K/uL (0.00-0.02); Immature Granulocytes % (auto) 0.3 %; Lymphocytes # (auto) 1.57 K/uL (1.2-3.4); Lymphocytes % (auto) 23.2 %; Mean Corpuscular Hemoglobin 30.9 pg (25.0-34.0); Mean Corpuscular Hgb Conc 33.4 g/dL (32.0-36.0); Mean Corpuscular Volume 92.5 fL (80.0-100.0); Mean Platelet Volume 9.7 fL (9.4-12.3); Monocytes # (auto) 0.48 K/uL (0.24-0.82); Monocytes % (auto) 7.1 %; Neutrophils # (auto) 4.26 K/uL (1.4-6.5); Neutrophils % (auto) 62.8 %; Platelet Count 177 K/uL (130-400); RDW Standard Deviation 47.3 fL (36.4-46.3); Red Blood Count 3.85 M/uL (3.93-5.22); White Blood Count 6.78 K/ul (4.8-10.8)
[2022-11-30 06:57] LABS: INR 1.2 (0.9-1.1); Prothrombin Time 12.2 Seconds (9.0-12.0)
[2022-11-30 07:03] LABS: Albumin Level 3.5 gm/dl (3.4-5.0); BUN Creatinine Ratio 33.6 (10-20); Calcium 9.8 mg/dl (8.5-10.1); Creatinine Clr Calc Pharmacy 28.2 ml/min; Est GFR (African American) 47.2 ml/min; Est GFR (Non-African American) 40.7 ml/min; Magnesium 1.9 mg/dl (1.7-2.4); Phosphorus 3.1 mg/dl (2.5-4.9); Potassium 4.3 mmol/L (3.5-5.1)
[2022-11-30] MEDS: amLODIPine BESYLATE 5 MG TAB PO SCH (09:39)
[2022-11-30] MEDS: METOPROLOL TARTRATE 50 MG TAB PO SCH ×2 (09:39→20:07)
[2022-11-30] MEDS: CALCIUM CARBONATE 1250MG TAB PO SCH (09:39)
[2022-11-30] MEDS: ASPIRIN 81 MG ECTAB PO SCH (09:41)
[2022-11-30] MEDS: WARFARIN SOD 2 MG TAB PO SCH (17:32)
--- NOTE | 2022-11-30 19:08 | Hospitalist Progress Note ---
Date of Service November 30, 2022 Assessment & Plan (1) Fall from standing: Plan: OT and PT assessments requested. Supportive care. No fractures seen on x-rays Discussed with patient daughter and need to confirm that [facility] with Providing PT OT as an outpatient to prevent further falls patient appears to be slightly deconditioned and needing ongoing PT OT therapy Case management to assist with placement tomorrow (2) Traumatic ecchymosis of face: Plan: Facial CT scan negative for fracture. Supportive care. (3) Hematoma of scalp: Plan: Local care until resolved (4) Abrasion of face: Plan: Local care until resolved (5) Supratherapeutic INR: Plan: The Coumadin was held on admission and vitamin K administered for INR of 8.8. INR today is 2.0. Will restart Coumadin at low-dose and monitor lab studies daily (6) Generalized weakness: Plan: Supportive care. OT and PT assessments Discussed with daughter who and wants to ensure the patient is safe at outside facility before she can be discharged (7) Frequent UTI: Plan: No current UTI (8) Dysuria: Plan: Occurs during UTI (9) Paroxysmal atrial fibrillation: Plan: Stable. Continue current medical management (10) Acute cerebrovascular insufficiency: Plan: History of cerebrovascular insufficiency. Nothing acute. Supportive care. (11) Hypertension: Plan: Amlodipine was held on admission and subsequently restarted. Currently controlled (12) Acute kidney injury superimposed on chronic kidney disease: Plan: Mild. Resolved with intravenous fluids. Monitor intake and output. Serial labs Plan Anticipate eventual return to her long-term care facility. Probably tomorrow, November 29 Admission and Anticipated Discharge Date Admission Date: November 28, 2022 Subjective Alert and oriented. She has left ocular periorbital ecchymoses from her fall progressively improving no fractures seen on facial CT scan. Discussed with patient's daughter who wants us to ensure that patient is safe before she can be placed with physical therapy Case management to discuss with [facility] if they have ability to PT OT as outpatient Review of Systems Review of Systems: Constitutional-no fever or chills ENT-left eye is swollen shut but vision is intact when eye lids are opened. No blurred vision, no double vision, Respiratory-no cough, no wheezing, no shortness of breath Cardiac-no palpitations, no chest pain, no syncope GI-no nausea, vomiting, diarrhea, y Physical Exam Physical Exam: Head and ENT no thyroid enlargement trachea midline Left-sided ecchymosis improving Cardiovascular S1-S2 are normal no S3 Lungs bilateral air entry fair no wheezing Abdomen soft nondistended positive bowel sounds no rebound tenderness Extremity shows trace edema Neurologically no focal deficits Skin shows no rash no cyanosis Results & Data Results & Data ([facility]) Vital Signs (Past 12 Hours) Vital Signs Temp Pulse Pulse Resp BP Pulse Ox O2 Del Method 11/30/22 16:25 91 H 11/30/22 15:53 36.7 C 80 18 97/65 L 93 Room Air 11/30/22 11:20 36.3 C L 58 L 18 125/71 95 Room Air 11/30/22 07:28 61 Laboratory Results Short CBC 11/30/22 Range/Units 06:18 WBC 6.78 (4.8-10.8) K/ul Hgb 11.9 L (12.0-16.0) g/dl Hct 35.6 (34.1-44.9) % Plt Count 177 (130-400) K/uL BMP 11/30/22 06:18 Sodium 136 Potassium 4.3 Chloride 107 Carbon Dioxide 24 BUN 40 H Creatinine 1.19 Glucose 96 Calcium 9.8 Liver Function 11/30/22 Range/Units 06:18 Albumin 3.5 (3.4-5.0) gm/dl PG Care Time/CCT Total # of Minutes Spent Total Time Spent with Patient: Total time spent is greater than 50% in coordination of care (as documented) at patient's floor/unit and/or counseling patient: Coding Level of Care Code 99539 SUB INP/OBS CARE 2/35MIN Diagnoses Fall from standing W19.XXXA Traumatic ecchymosis of face S00.83XA Hematoma of scalp S00.03XA Abrasion of face S00.81XA Supratherapeutic INR R79.1 Generalized weakness R53.1 Frequent UTI N39.0 Dysuria R30.0 Paroxysmal atrial fibrillation I48.0 Acute cerebrovascular insufficiency I67.81 Hypertension I10 Acute kidney injury superimposed on chronic kidney disease N17.9; N18.9
[2022-12-01 06:48] LABS: Basophils # (auto) 0.08 K/uL (0-0.2); Basophils % (auto) 1.3 %; Eosinophils # (auto) 0.58 K/uL (0-0.50); Eosinophils % (auto) 9.6 %; Hemoglobin 11.9 g/dl (12.0-16.0); Immature Granulocytes # (auto) 0.02 K/uL (0.00-0.02); Immature Granulocytes % (auto) 0.3 %; Lymphocytes # (auto) 1.98 K/uL (1.2-3.4); Lymphocytes % (auto) 32.8 %; Mean Corpuscular Hemoglobin 30.5 pg (25.0-34.0); Mean Corpuscular Hgb Conc 33.1 g/dL (32.0-36.0); Mean Corpuscular Volume 92.3 fL (80.0-100.0); Mean Platelet Volume 9.6 fL (9.4-12.3); Monocytes # (auto) 0.56 K/uL (0.24-0.82); Monocytes % (auto) 9.3 %; Neutrophils # (auto) 2.81 K/uL (1.4-6.5); Neutrophils % (auto) 46.7 %; Platelet Count 175 K/uL (130-400); RDW Coefficient of Variation 13.9 % (11.5-14.5); RDW Standard Deviation 47.5 fL (36.4-46.3); White Blood Count 6.03 K/ul (4.8-10.8)
[2022-12-01 06:57] LABS: INR 1.2 (0.9-1.1)
[2022-12-01 07:12] LABS: Albumin Level 3.4 gm/dl (3.4-5.0); BUN Creatinine Ratio 38.3 (10-20); Calcium 9.8 mg/dl (8.5-10.1); Creatinine Clr Calc Pharmacy 35.7 ml/min; Est GFR (African American) 62.8 ml/min; Est GFR (Non-African American) 54.2 ml/min; Magnesium 1.9 mg/dl (1.7-2.4); Phosphorus 3.1 mg/dl (2.5-4.9); Potassium 4.2 mmol/L (3.5-5.1)
[2022-12-01] MEDS: METOPROLOL TARTRATE 50 MG TAB PO SCH (08:11)
[2022-12-01] MEDS: CALCIUM CARBONATE 1250MG TAB PO SCH (08:11)
[2022-12-01] MEDS: amLODIPine BESYLATE 5 MG TAB PO SCH (08:12)
[2022-12-01] MEDS: ASPIRIN 81 MG ECTAB PO SCH (08:12)
--- NOTE | 2022-12-01 11:06 | Discharge Summary ---
Date of Service December 01, 2022 Admission HPI Per Admitting Provider The patient is a 87-year-old female with a past medical history including recurrent urinary tract infection, arthritis, chronic anticoagulation with warfarin, hypertension and paroxysmal atrial fibrillation. She presents to the emergency department after a ground-level fall, and was treated in the ED for a left scalp hematoma and abrasion. Significant abnormal laboratories: INR 7.6, glucose 138, creatinine 1.53. Imaging studies: Normal CT scan of the C-spine, face, and head. Chest x-ray showed no acute findings, but did show findings suggestive of chronic interstitial lung disease Principal Diagnosis Mechanical fall with left-sided facial trauma without fracture, Coumadin toxicity with supratherapeutic INR, acute on chronic kidney disease stage III Discharge Exam General-alert and oriented x3, no fevers, no chills HEENT-left periorbital ecchymoses is resolving. Swelling has diminished considerably. Left eye is now open. Pupils equal and reactive to light, extraocular muscles intact Neck-no lymphadenopathy or thyromegaly, trachea midline Chest-clear to auscultation percussion. No rales wheezing or rhonchi Cardiac-regular rate and rhythm, normal S1 and S2 Abdomen-normal bowel sounds, nontender, no hepatosplenomegaly Extremities-no cyanosis, clubbing, or edema Neuro-cranial nerves II through XII intact, motor and sensory function within normal limits, strength symmetrical , no focal deficits Psych-normal affect, normal mood Discharge Data Allergies Allergy/AdvReac Type Severity Reaction Status Date / Time ciprofloxacin [Cipro] AdvReac Severe nausea,head Verified 11/28/22 00:13 ache,diarrh ea cefuroxime AdvReac Intermediate nausea,head Verified 11/28/22 00:13 ache,diarrh ea cephalexin AdvReac Intermediate nausea,head Verified 11/28/22 00:13 ache,diarrh ea Penicillins AdvReac Intermediate nausea,head Verified 11/28/22 00:13 ache,diarrh ea Consultations 11/28/22 02:49 ED Decision to Admit Stat Ordered Studies 11/27/22 22:42 CT cervical spine wo con Urgent CT facial bones wo con Urgent CT head/brain wo con Urgent Hospital Course (1) Fall from standing: OT and PT assessments requested. Supportive care. No fractures seen on x-rays (2) Traumatic ecchymosis of face: Facial CT scan negative for fracture. Supportive care. (3) Hematoma of scalp: Local care until resolved (4) Abrasion of face: Local care until resolved (5) Supratherapeutic INR: The Coumadin was held on admission and vitamin K administered for INR of 8.8. INR is down to 1.2 today, December 01. We will increase Coumadin to 5 mg daily for now. (6) Generalized weakness: Supportive care. OT and PT assessments (7) Frequent UTI: No current UTI (8) Dysuria: Occurs during UTI (9) Paroxysmal atrial fibrillation: Stable. Continue current medical management (10) Acute cerebrovascular insufficiency: History of cerebrovascular insufficiency. Nothing acute. Supportive care. (11) Hypertension: Amlodipine was held on admission and subsequently restarted. Currently controlled (12) Acute kidney injury superimposed on chronic kidney disease: Mild. Resolved with intravenous fluids. Monitor intake and output. Serial labs Plan [facility] Total Time Total Time Spent Total Time Spent (In Minutes): 35 minutes Discharge Plan Discharge Items Patient Disposition: Transfer Long Term Fac Reason For Visit: SUPRATHERAPEUTIC INR,IVONNE,GROUND LEVEL FALL,WEAKNES Discharge Diagnosis: Mechanical fall with left-sided facial trauma without fracture, Coumadin toxicity with supratherapeutic INR, acute on chronic kidney disease Activity: Resume your previous activity Non-emergency contact: Primary Care Provider Call non-emergency contact if: you have any medication questions [facility] - Diet: Heart Healthy Addtl Attending Provider Instructions: Continue medications as before Pending Studies at Discharge: No Stand-Alone Forms: My [facility] Skilled Items Patient informed of condition?: Yes DNR: Yes Discharge Level of Care: Skilled Communicable Disease: No Discharge Prognosis: Stable Lines: None Urinary Catheter: No Medications and DC Order Prescriptions: New aspirin 81 mg Tablet,Delayed Release (Dr/Ec) 81 mg PO QAM Qty: 30 0RF Continued calcium carbonate [Calcium 600] 600 mg calcium (1,500 mg) tablet 1,200 mg PO DAILY aspirin 81 mg tablet,delayed release (DR/EC) 81 mg PO DAILY acetaminophen 500 mg capsule 1,000 mg PO BID PRN (Reason: Pain) amlodipine [Norvasc] 2.5 mg tablet 2.5 mg PO DAILY metoprolol tartrate 50 mg tablet 50 mg PO BID warfarin 2 mg tablet See Rx Instructions .ROUTE .COMPLEX Rx Instructions: ON HOLD PER PT INR (8) DO NOT TAKE 11/27/22-11/30/22, REPEAT INR. THEN DOSE WILL BE GIVEN. NORMALLY PER PT TAKES 2 MG ON MON, WED, & FRI. TAKES 4 MG ON SUN, TUES, THURS, & SAT. Discharge Orders: Discharge Order (Routine); Ordered 12/01/22 Ordered By: Saad Morales Admission Data Admit Date/Time: 11/28/22 03:31 Attending Provider: Saad Morales Admit Provider: Urbano Darnell Primary Care Provider: [facility] Mj Mejia Other Providers: Urbano Darnell Coding Level of Care Code HOSP INP/OBS DISCH >30 MIN Diagnoses Fall from standing W19.XXXA Traumatic ecchymosis of face S00.83XA Hematoma of scalp S00.03XA Abrasion of face S00.81XA Supratherapeutic INR R79.1 Generalized weakness R53.1 Frequent UTI N39.0 Dysuria R30.0 Paroxysmal atrial fibrillation I48.0 Acute cerebrovascular insufficiency I67.81 Hypertension I10 Acute kidney injury superimposed on chronic kidney disease N17.9; N18.9
[2022-12-01] MEDS ORDERED: WARFARIN SOD 5 MG TAB PO SCH (16:00)
== END 2022-12-01 15:28 | DRG 683 ==
LOC: ED 22:15 → 2N 11-28 03:31 → SUATTDRO 11-28 03:31 → INTOOBSV 11-28 03:31 → 2N 11-28 04:53
DX: I67.81 Acute cerebrovascular insufficiency; N18.30 Chronic kidney disease, stage 3 unspecified; R30.0 Dysuria; I12.9 Hypertensive chronic kidney disease with stage 1 through stage 4 chronic kidney disease, or unspecified chronic kidney disease; S00.81XA Abrasion of other part of head, initial encounter; W18.39XA Other fall on same level, initial encounter; S00.03XA Contusion of scalp, initial encounter; Z79.01 Long term (current) use of anticoagulants; Z88.0 Allergy status to penicillin; R79.1 Abnormal coagulation profile; E86.0 Dehydration; Z79.899 Other long term (current) drug therapy; Z87.440 Personal history of urinary (tract) infections; Z88.1 Allergy status to other antibiotic agents; Z82.49 Family history of ischemic heart disease and other diseases of the circulatory system; T45.515A Adverse effect of anticoagulants, initial encounter; R53.1 Weakness; Z79.82 Long term (current) use of aspirin; Y99.8 Other external cause status; Z60.2 Problems related to living alone; I48.0 Paroxysmal atrial fibrillation; N17.9 Acute kidney failure, unspecified; Y92.129 Unspecified place in nursing home as the place of occurrence of the external cause

== ENCOUNTER 2022-12-11 04:43 | Observation (INO) ==
[2022-12-11 05:28] LABS: Basophils # (auto) 0.07 K/uL (0-0.2); Basophils % (auto) 0.5 %; Eosinophils # (auto) 0.42 K/uL (0-0.50); Eosinophils % (auto) 3.3 %; Hematocrit (blood only) 38.2 % (34.1-44.9); Hemoglobin 12.6 g/dl (12.0-16.0); Immature Granulocytes # (auto) 0.06 K/uL (0.00-0.02); Immature Granulocytes % (auto) 0.5 %; Lymphocytes % (auto) 7.8 %; Mean Corpuscular Hemoglobin 30.8 pg (25.0-34.0); Mean Corpuscular Volume 93.4 fL (80.0-100.0); Mean Platelet Volume 9.9 fL (9.4-12.3); Monocytes # (auto) 0.85 K/uL (0.24-0.82); Monocytes % (auto) 6.7 %; Neutrophils # (auto) 10.38 K/uL (1.4-6.5); Neutrophils % (auto) 81.2 %; Platelet Count 210 K/uL (130-400); RDW Coefficient of Variation 14.5 % (11.5-14.5); RDW Standard Deviation 49.5 fL (36.4-46.3); Red Blood Count 4.09 M/uL (3.93-5.22); White Blood Count 12.78 K/ul (4.8-10.8)
[2022-12-11 05:53] LABS: Troponin I High Sensitivity 8.7 pg/ml (0-14)
[2022-12-11 05:58] LABS: Alanine Aminotransferase 13 U/L (7-52); Albumin Level 3.8 gm/dl (3.4-5.0); Alkaline Phosphatase 72 U/L (34-104); Anion Gap 8 (3-11); Aspartate Aminotransferase 15 U/L (13-39); BUN Creatinine Ratio 38.5 (10-20); Bilirubin Direct 0.1 mg/dl (0-0.2); Bilirubin,Total 0.9 mg/dl (0.2-1.0); Blood Urea Nitrogen 30 mg/dl (6-23); Calcium 10.2 mg/dl (8.5-10.1); Carbon Dioxide 27 mmol/L (21-32); Chloride 106 mmol/L (98-107); Est GFR (African American) 78.7 ml/min; Est GFR (Non-African American) 67.9 ml/min; Glucose 103 mg/dl (70-99(Fasting)); Magnesium 1.8 mg/dl (1.7-2.4); Potassium 3.6 mmol/L (3.5-5.1); Sodium 141 mmol/L (136-145); Total Protein 7.1 gm/dl (6.0-8.3)
[2022-12-11] MEDS ORDERED: ALBUT/IPRATROP 3MG/0.5MG NEB 3 ML VIAL NEB STA (06:39)
--- NOTE | 2022-12-11 06:46 | Emergency Department Note ---
Impression & Plan Hypoxia ADMIT ED Provider Note HPI: The patient is an 87-year-old female who presents to the emergency department with a chief complaint of subjective fevers. Patient states that she awoke from sleep several hours prior to arrival with a sensation of fever. On arrival here to the ED the patient is afebrile, noted to have hypoxia at 87% and therefore was placed on 2 L nasal cannula oxygen with good improvement. On arrival to the ED patient states that she still does have some subjective fever but otherwise is in no acute distress and denies any focal complaint of pain. ROS: - Per HPI *Outpatient medications and allergy history reviewed. *Pertinent external medical records reviewed. PE: General: Alert HEENT: Normocephalic, trachea midline Eyes: Extraocular eye movement is intact, no scleral erythema Pulmonary: Diminished bilaterally without wheezing Cardio: Regular rate and rhythm GI: Abdomen is soft, nontender : No suprapubic tenderness MSK: No evidence of trauma or malformation of the extremities, no edema Skin: No evidence of rash Neuro: Alert, no focal deficits Psychiatric: Cooperative monitor car operator: - An order was placed for continuous cardiac monitoring - Patient was noted to be in sinus rhythm with a rate of 98 EKG: (As interpreted by myself): Rate: 111 Rhythm: Sinus tachycardia Intervals: Within normal limits ST changes: No ST elevation Time: 0456 Interventions provided in ED: -IV fluid bolus, DuoNeb breathing treatment Medical Decision Making: Patient presented to the emergency department with subjective fever and chills. IV was established, lab work obtained, patient was placed on manager monitoring. She denied any focal complaint of pain. Denied any current shortness of breath. She was noted to be hypoxic on arrival at 87%, she does not normally wear nasal cannula oxygen, she was placed on nasal cannula oxygen with good improvement. Patient is afebrile on arrival. Lab work shows a mild leukocytosis, slight elevation in lactate at 2.3, hemoglobin is stable. No critical electrolyte abnormalities are noted. EKG shows sinus tachycardia with a rate of 111. No acute ischemic changes are noted. Venous blood gas shows no evidence of hypercarbia. Chest x-ray shows emphysema without any focal pneumonia. COVID-19 testing and influenza testing are both negative. Patient was given a DuoNeb breathing treatment and IV Solu-Medrol over concern for COPD exacerbation with hypoxia. On my reassessment she was trialed off of nasal cannula oxygen and unfortunately had desaturation to 86%, she was th erefore placed back on nasal cannula oxygen with good improvement. Given her continued hypoxia I did discuss the case with the on-call hospitalist, Dr. Alvarado, and patient was placed for admission in stable condition for further care. Disposition discussion held by myself with: Patient * CRITICAL CARE TIME: (38) minutes -Stabilization of hypoxia with oxygen saturations less than 90% on room air requiring nasal cannula oxygen, breathing treatments, and IV Solu-Medrol for improvement. Time spent at the bedside. Interpretation of diagnostic studies. Discussion with other physicians and arrangement of admission. Diagnosis: 1. Hypoxia, acute 2. COPD exacerbation with hypoxia 3. Leukocytosis, nonspecific 4. Lactic acidosis, mild Disposition: Admission Luis Felipe Guillory DO Emergency Medicine Past Med/Surg History Medical History (Updated 12/11/22 @ 09:37 by Luis Felipe Guillory DO) Acute cystitis with hematuria Acute upper respiratory infection, unspecified Bronchiectasis Fall Frequent UTI Hypertension Lung infection Major depressive disorder Other polyosteoarthritis Other specified dermatitis Paroxysmal atrial fibrillation Tinea corporis Urge incontinence Family History (Updated 12/03/21 @ 14:39 by Celena Lai RN) Mother Hypertension Social History (Updated 12/03/21 @ 14:40 by Celena Lai, ERVIN) Smoking Status: Never smoker Second Hand Exposure: No; Hx Alcohol Use: No Hx Substance Use: No Preferred Language: Indonesian Communication Ability: Effective Marker Delivery Required: No Beliefs That Will Affect Care: None marital status: Current Living Situation: Alone current occupational status: retired Feels Safe at Home: Yes Assistive Devices: Cane, Glasses and Walker Allergies Allergies Allergy/AdvReac Type Severity Reaction Status Date / Time ciprofloxacin [Cipro] AdvReac Severe nausea,head Verified 11/28/22 00:13 ache,diarrh ea cefuroxime AdvReac Intermediate nausea,head Verified 11/28/22 00:13 ache,diarrh ea cephalexin AdvReac Intermediate nausea,head Verified 11/28/22 00:13 ache,diarrh ea Penicillins AdvReac Intermediate nausea,head Verified 11/28/22 00:13 ache,diarrh ea Home Meds Home Medications Medication Instructions Recorded Confirmed acetaminophen 500 mg capsule 1,000 mg PO BID PRN Pain 12/03/21 11/28/22 amlodipine 2.5 mg tablet (Norvasc) 2.5 mg PO DAILY 12/03/21 11/28/22 aspirin 81 mg tablet,delayed 81 mg PO DAILY 12/03/21 11/28/22 release calcium carbonate 600 mg calcium 1,200 mg PO DAILY 12/03/21 11/28/22 (1,500 mg) tablet (Calcium) metoprolol tartrate 50 mg tablet 50 mg PO BID 12/03/21 11/28/22 warfarin 2 mg tablet See Rx Instructions .Route .COMPLEX 11/28/22 11/28/22 Previous Rx's Medication Instructions Recorded aspirin 81 mg tablet,delayed 81 mg PO QAM #30 tabs 12/01/22 release Results & Data (ED) Vital Signs Vital Signs - 24 hr 12/11/22 04:39 12/11/22 05:12 12/11/22 05:12 Temperature 37.2 C Temperature Source Oral Pulse Rate 112 H 108 H Pulse Rate [Apical] Pulse Rate from SpO2 Sensor Pulse Rhythm Regular Pulse Rhythm [Apical] Respiratory Rate 21 24 Respiratory Effort / Characteristics Non-Labored Respiratory Depth Normal Blood Pressure 187/100 H Blood Pressure [Left Arm] Blood Pressure Mean 129 Blood Pressure Mean [Left Arm] Pulse Oximetry 91 96 96 Oxygen Delivery Method Nasal Cannula Nasal Cannula Nasal Cannula Oxygen Flow Rate 2 2 Sepsis Recent Fever Within 48 Hours No Sepsis New/Unexplained Change in Mental Status No Sepsis Action Taken by Nursing Physician Notified Oxygen Flow Rate - Titration Pulse Oximetry Post Tiitration 12/11/22 06:12 12/11/22 06:15 12/11/22 04:56 Temperature Temperature Source Pulse Rate 115 H Pulse Rate [Apical] Pulse Rate from SpO2 Sensor 114 H Pulse Rhythm Pulse Rhythm [Apical] Respiratory Rate 25 H Respiratory Effort / Characteristics Non-Labored Non-Labored Respiratory Depth Normal Normal Blood Pressure Blood Pressure [Left Arm] Blood Pressure Mean Blood Pressure Mean [Left Arm] Pulse Oximetry 92 Oxygen Delivery Method Oxygen Flow Rate Sepsis Recent Fever Within 48 Hours Sepsis New/Unexplained Change in Mental Status Sepsis Action Taken by Nursing Oxygen Flow Rate - Titration Pulse Oximetry Post Tiitration 12/11/22 05:00 12/11/22 05:00 12/11/22 05:10 Temperature Temperature Source Pulse Rate 114 H 110 H Pulse Rate [Apical] Pulse Rate from SpO2 Sensor 118 H 118 H Pulse Rhythm Pulse Rhythm [Apical] Respiratory Rate 26 H 28 H Respiratory Effort / Characteristics Respiratory Depth Blood Pressure 185/122 H Blood Pressure [Left Arm] Blood Pressure Mean 143 Blood Pressure Mean [Left Arm] Pulse Oximetry 91 91 Oxygen Delivery Method Oxygen Flow Rate Sepsis Recent Fever Within 48 Hours Sepsis New/Unexplained Change in Mental Status Sepsis Action Taken by Nursing Oxygen Flow Rate - Titration Pulse Oximetry Post Tiitration 12/11/22 05:20 12/11/22 05:30 12/11/22 05:40 Temperature Temperature Source Pulse Rate 111 H 111 H 110 H Pulse Rate [Apical] Pulse Rate from SpO2 Sensor 112 H 114 H 114 H Pulse Rhythm Pulse Rhythm [Apical] Respiratory Rate 23 24 36 H Respiratory Effort / Characteristics Respiratory Depth Blood Pressure Blood Pressure [Left Arm] Blood Pressure Mean Blood Pressure Mean [Left Arm] Pulse Oximetry 91 91 89 L Oxygen Delivery Method Oxygen Flow Rate Sepsis Recent Fever Within 48 Hours Sepsis New/Unexplained Change in Mental Status Sepsis Action Taken by Nursing Oxygen Flow Rate - Titration Pulse Oximetry Post Tiitration 12/11/22 05:50 12/11/22 06:00 12/11/22 06:00 Temperature Temperature Source Pulse Rate 108 H 105 H Pulse Rate [Apical] Pulse Rate from SpO2 Sensor 108 H 106 H Pulse Rhythm Pulse Rhythm [Apical] Respiratory Rate 25 H 29 H Respiratory Effort / Characteristics Respiratory Depth Blood Pressure 133/95 Blood Pressure [Left Arm] Blood Pressure Mean 107 Blood Pressure Mean [Left Arm] Pulse Oximetry 97 97 Oxygen Delivery Method Oxygen Flow Rate Sepsis Recent Fever Within 48 Hours Sepsis New/Unexplained Change in Mental Status Sepsis Action Taken by Nursing Oxygen Flow Rate - Titration Pulse Oximetry Post Tiitration 12/11/22 06:10 12/11/22 06:20 12/11/22 09:13 Temperature Temperature Source Pulse Rate 103 H 100 H Pulse Rate [Apical] Pulse Rate from SpO2 Sensor 109 H 103 H Pulse Rhythm Pulse Rhythm [Apical] Respiratory Rate 29 H 22 Respiratory Effort / Characteristics Respiratory Depth Blood Pressure Blood Pressure [Left Arm] Blood Pressure Mean Blood Pressure Mean [Left Arm] Pulse Oximetry 97 97 86 L Oxygen Delivery Method Room Air Oxygen Flow Rate Sepsis Recent Fever Within 48 Hours Sepsis New/Unexplained Change in Mental Status Sepsis Action Taken by Nursing Oxygen Flow Rate - Titration 2 Pulse Oximetry Post Tiitration 94 12/11/22 09:00 Temperature Temperature Source Pulse Rate Pulse Rate [Apical] 92 H Pulse Rate from SpO2 Sensor Pulse Rhythm Pulse Rhythm [Apical] Regular Respiratory Rate 18 Respiratory Effort / Characteristics Non-Labored Respiratory Depth Normal Blood Pressure Blood Pressure [Left Arm] 129/71 Blood Pressure Mean Blood Pressure Mean [Left Arm] 90 Pulse Oximetry 94 Oxygen Delivery Method Oxygen Flow Rate Sepsis Recent Fever Within 48 Hours Sepsis New/Unexplained Change in Mental Status Sepsis Action Taken by Nursing Oxygen Flow Rate - Titration Pulse Oximetry Post Tiitration Laboratory Data 12/11/22 05:15 12/11/22 05:15 Lab Results 12/11/22 12/11/22 12/11/22 Range/Units 05:15 05:15 05:15 WBC 12.78 H (4.8-10.8) K/ul RBC 4.09 (3.93-5.22) M/uL Hgb 12.6 (12.0-16.0) g/dl Hct 38.2 (34.1-44.9) % MCV 93.4 (80.0-100.0) fL MCH 30.8 (25.0-34.0) pg MCHC 33.0 (32.0-36.0) g/dL RDW Std Deviation 49.5 H (36.4-46.3) fL RDW Coeff of Rachel 14.5 (11.5-14.5) % Plt Count 210 (130-400) K/uL MPV 9.9 (9.4-12.3) fL Immature Gran % (Auto) 0.5 % Neut % (Auto) 81.2 % Lymph % (Auto) 7.8 % [place] % (Auto) 6.7 % Eos % (Auto) 3.3 % Baso % (Auto) 0.5 % Neut # (Auto) 10.38 H (1.4-6.5) K/uL Lymph # (Auto) 1.00 L (1.2-3.4) K/uL [place] # (Auto) 0.85 H (0.24-0.82) K/uL Eos # (Auto) 0.42 (0-0.50) K/uL Baso # (Auto) 0.07 (0-0.2) K/uL Immature Gran # (Auto) 0.06 H (0.00-0.02) K/uL PT (9.0-12.0) Seconds INR (0.9-1.1) VBG pH (7.36-7.41) VBG pCO2 (38-50) mmHg VBG pO2 mmHg VBG HCO3 mmol/L VBG O2 Saturation % VBG Base Excess mEq/L Sodium 141 (136-145) mmol/L Potassium 3.6 (3.5-5.1) mmol/L Chloride 106 (98-107) mmol/L Carbon Dioxide 27 (21-32) mmol/L Anion Gap 8 (3-11) BUN 30 H (6-23) mg/dl Creatinine 0.78 (0.6-1.2) mg/dl Est Cr Clr Drug Dosing Not Reportable Est GFR ( Amer) 78.7 ml/min Est GFR (Non-Af Amer) 67.9 ml/min BUN/Creatinine Ratio 38.5 H (10-20) Glucose 103 H (70-99(Fasting)) mg/dl Lactate (0.4-2.0) mmol/L Calcium 10.2 H (8.5-10.1) mg/dl Magnesium 1.8 (1.7-2.4) mg/dl Total Bilirubin 0.9 (0.2-1.0) mg/dl Direct Bilirubin 0.1 (0-0.2) mg/dl AST 15 (13-39) U/L ALT 13 (7-52) U/L Alkaline Phosphatase 72 (34-104) U/L Troponin I High Sens 8.7 (0-14) pg/ml Total Protein 7.1 (6.0-8.3) gm/dl Albumin 3.8 (3.4-5.0) gm/dl Procalcitonin < 0.05 (0-0.5) ng/ml Urine Color Urine Appearance (Clear) Urine pH (4.5-7.5) Ur Specific [place] (1.000-1.030) Urine Protein (Negative) Urine Glucose (UA) (Negative) Urine Ketones (Negative) Urine Blood (Negative) Urine Nitrite (Negative) Urine Bilirubin (Negative) Urine Urobilinogen (Negative) Ur Leukocyte Esterase (Negative) Urine WBC (Auto) (0-5) /hpf Urine RBC (Auto) (0-4) /hpf U Hyaline Cast (Auto) (0-5) /lpf U Epithel Cells (Auto) (0-5) /lpf Urine Bacteria (Auto) (Negative) SARS-CoV-2 (PCR) (Negative) Influenza Type A (PCR) (Neg) Influenza Type B (PCR) (Neg) RSV (RT-PCR) (Neg) 12/11/22 12/11/22 12/11/22 Range/Units 05:15 05:39 05:42 WBC (4.8-10.8) K/ul RBC (3.93-5.22) M/uL Hgb (12.0-16.0) g/dl Hct (34.1-44.9) % MCV (80.0-100.0) fL MCH (25.0-34.0) pg MCHC (32.0-36.0) g/dL RDW Std Deviation (36.4-46.3) fL RDW Coeff of Rachel (11.5-14.5) % Plt Count (130-400) K/uL MPV (9.4-12.3) fL Immature Gran % (Auto) % Neut % (Auto) % Lymph % (Auto) % [place] % (Auto) % Eos % (Auto) % Baso % (Auto) % Neut # (Auto) (1.4-6.5) K/uL Lymph # (Auto) (1.2-3.4) K/uL [place] # (Auto) (0.24-0.82) K/uL Eos # (Auto) (0-0.50) K/uL Baso # (Auto) (0-0.2) K/uL Immature Gran # (Auto) (0.00-0.02) K/uL PT 23.3 H (9.0-12.0) Seconds INR 2.3 H (0.9-1.1) VBG pH (7.36-7.41) VBG pCO2 (38-50) mmHg VBG pO2 mmHg VBG HCO3 mmol/L VBG O2 Saturation % VBG Base Excess mEq/L Sodium (136-145) mmol/L Potassium (3.5-5.1) mmol/L Chloride (98-107) mmol/L Carbon Dioxide (21-32) mmol/L Anion Gap (3-11) BUN (6-23) mg/dl Creatinine (0.6-1.2) mg/dl Est Cr Clr Drug Dosing Est GFR ( Amer) ml/min Est GFR (Non-Af Amer) ml/min BUN/Creatinine Ratio (10-20) Glucose (70-99(Fasting)) mg/dl Lactate 2.3 H* (0.4-2.0) mmol/L Calcium (8.5-10.1) mg/dl Magnesium (1.7-2.4) mg/dl Total Bilirubin (0.2-1.0) mg/dl Direct Bilirubin (0-0.2) mg/dl AST (13-39) U/L ALT (7-52) U/L Alkaline Phosphatase (34-104) U/L Troponin I High Sens (0-14) pg/ml Total Protein (6.0-8.3) gm/dl Albumin (3.4-5.0) gm/dl Procalcitonin (0-0.5) ng/ml Urine Color Urine Appearance (Clear) Urine pH (4.5-7.5) Ur Specific [place] (1.000-1.030) Urine Protein (Negative) Urine Glucose (UA) (Negative) Urine Ketones (Negative) Urine Blood (Negative) Urine Nitrite (Negative) Urine Bilirubin (Negative) Urine Urobilinogen (Negative) Ur Leukocyte Esterase (Negative) Urine WBC (Auto) (0-5) /hpf Urine RBC (Auto) (0-4) /hpf U Hyaline Cast (Auto) (0-5) /lpf U Epithel Cells (Auto) (0-5) /lpf Urine Bacteria (Auto) (Negative) SARS-CoV-2 (PCR) NEGATIVE (Negative) Influenza Type A (PCR) Negative (Neg) Influenza Type B (PCR) Negative (Neg) RSV (RT-PCR) Negative (Neg) 12/11/22 12/11/22 Range/Units 07:21 07:31 WBC (4.8-10.8) K/ul RBC (3.93-5.22) M/uL Hgb (12.0-16.0) g/dl Hct (34.1-44.9) % MCV (80.0-100.0) fL MCH (25.0-34.0) pg MCHC (32.0-36.0) g/dL RDW Std Deviation (36.4-46.3) fL RDW Coeff of Rachel (11.5-14.5) % Plt Count (130-400) K/uL MPV (9.4-12.3) fL Immature Gran % (Auto) % Neut % (Auto) % Lymph % (Auto) % [place] % (Auto) % Eos % (Auto) % Baso % (Auto) % Neut # (Auto) (1.4-6.5) K/uL Lymph # (Auto) (1.2-3.4) K/uL [place] # (Auto) (0.24-0.82) K/uL Eos # (Auto) (0-0.50) K/uL Baso # (Auto) (0-0.2) K/uL Immature Gran # (Auto) (0.00-0.02) K/uL PT (9.0-12.0) Seconds INR (0.9-1.1) VBG pH 7.44 H (7.36-7.41) VBG pCO2 44 (38-50) mmHg VBG pO2 46 mmHg VBG HCO3 30 mmol/L VBG O2 Saturation 79.4 % VBG Base Excess 5.0 mEq/L Sodium (136-145) mmol/L Potassium (3.5-5.1) mmol/L Chloride (98-107) mmol/L Carbon Dioxide (21-32) mmol/L Anion Gap (3-11) BUN (6-23) mg/dl Creatinine (0.6-1.2) mg/dl Est Cr Clr Drug Dosing Est GFR ( Amer) ml/min Est GFR (Non-Af Amer) ml/min BUN/Creatinine Ratio (10-20) Glucose (70-99(Fasting)) mg/dl Lactate (0.4-2.0) mmol/L Calcium (8.5-10.1) mg/dl Magnesium (1.7-2.4) mg/dl Total Bilirubin (0.2-1.0) mg/dl Direct Bilirubin (0-0.2) mg/dl AST (13-39) U/L ALT (7-52) U/L Alkaline Phosphatase (34-104) U/L Troponin I High Sens (0-14) pg/ml Total Protein (6.0-8.3) gm/dl Albumin (3.4-5.0) gm/dl Procalcitonin (0-0.5) ng/ml Urine Color Yellow Urine Appearance Cloudy A (Clear) Urine pH 8.0 H (4.5-7.5) Ur Specific [place] 1.010 (1.000-1.030) Urine Protein Negative (Negative) Urine Glucose (UA) Negative (Negative) Urine Ketones Negative (Negative) Urine Blood Negative (Negative) Urine Nitrite Negative (Negative) Urine Bilirubin Negative (Negative) Urine Urobilinogen Negative (Negative) Ur Leukocyte Esterase Negative (Negative) Urine WBC (Auto) 1-5 (0-5) /hpf Urine RBC (Auto) 5-10 H (0-4) /hpf U Hyaline Cast (Auto) 0 (0-5) /lpf U Epithel Cells (Auto) 0-5 (0-5) /lpf Urine Bacteria (Auto) Negative (Negative) SARS-CoV-2 (PCR) (Negative) Influenza Type A (PCR) (Neg) Influenza Type B (PCR) (Neg) RSV (RT-PCR) (Neg) Administered Medications Discontinued Medications Albuterol (Albut/Ipratrop 3mg/0.5mg Neb 3 Ml Vial) 3 ml NEB NOW STA; Protocol Stop: 12/11/22 06:40 Last Admin: 12/11/22 07:27 Dose: 3 ml Documented By: KELSI Sodium Chloride (Nss 1000ml) 1,000 mls @ 999 mls/hr IV .Q1H1M ONE Stop: 12/11/22 07:53 Last Infusion: 12/11/22 08:54 Dose: 0 mls/hr Documented By: Admin: 12/11/22 07:27 Dose: 999 mls/hr Documented By: KELSI Methylprednisolone (Methylprednisolone 125 Mg/2 Ml Vial) 125 mg IV NOW STA Stop: 12/11/22 07:09 Last Admin: 12/11/22 07:27 Dose: 125 mg Documented By: KELSI Imaging Data Radiologist's Impression: Chest X-Ray 12/11/22 05:12 XR chest 1V portable HISTORY: 87 years-old Female Sepsis acute sepsis with shortness of breath COMPARISON: Chest radiograph November 28, 2022, March 25, 2019. TECHNIQUE: AP view of the chest FINDINGS: Cardiomediastinal and hilar silhouettes are unchanged. Emphysema with stable 3.5 cm nodular density of the right upper lung. Chronic interstitial coarsening. No pneumothorax, large pleural effusion or overt pulmonary edema. Degenerative changes of the shoulders and spine. IMPRESSION: 1. Emphysema with chronic interstitial coarsening. 2. Stable 3.5 cm irregular nodular density of the right upper lung. ACT 112: Negative or not required by law. The above report was generated using voice recognition software. It may contain grammatical, syntax or spelling errors. Electronically signed by: Francis Triana M.D. 12/11/2022 7:02 AM Discharge Plan Visit Data Chief Complaint: Illness Stated Complaint: Illness ED Provider: Luis Felipe Guillory Discharge Problem: Hypoxia Patient Disposition: Admitted As Inpatient Forms Stand Alone Forms: [facility] Prescriptions Prescriptions: No Action calcium carbonate [Calcium 600] 600 mg calcium (1,500 mg) tablet 1,200 mg PO DAILY aspirin 81 mg tablet,delayed release (DR/EC) 81 mg PO DAILY acetaminophen 500 mg capsule 1,000 mg PO BID PRN (Reason: Pain) amlodipine [Norvasc] 2.5 mg tablet 2.5 mg PO DAILY metoprolol tartrate 50 mg tablet 50 mg PO BID warfarin 2 mg tablet See Rx Instructions .ROUTE .COMPLEX Rx Instructions: ON HOLD PER PT INR (8) DO NOT TAKE 11/27/22-11/30/22, REPEAT INR. THEN DOSE WILL BE GIVEN. NORMALLY PER PT TAKES 2 MG ON MON, WED, & FRI. TAKES 4 MG ON SUN, TU, THURS, & SAT. aspirin 81 mg Tablet,Delayed Release (Dr/Ec) 81 mg PO QAM Qty: 30 0RF Referrals Referrals: Bette Thomas [Primary Care Provider] -
[2022-12-11 06:52] LABS: Influenza A virus by PCR Negative (Neg); Influenza B virus by PCR Negative (Neg); RSV by PCR Negative (Neg); SARS CoV2 RNA(COVID-19) Ceph NEGATIVE (Negative)
[2022-12-11] MEDS ORDERED: SODIUM CHLORIDE 0.9% 1000ML 1,000 ML IV ONE (06:53)
--- NOTE | 2022-12-11 07:03 | XRay Report ---
XR chest 1V portable HISTORY: 87 years-old Female Sepsis acute sepsis with shortness of breath COMPARISON: Chest radiograph November 28, 2022, March 25, 2019. TECHNIQUE: AP view of the chest FINDINGS: Cardiomediastinal and hilar silhouettes are unchanged. Emphysema with stable 3.5 cm nodular density o f the right upper lung. Chronic interstitial coarsening. No pneumothorax, large pleural effusion or o vert pulmonary edema. Degenerative changes of the shoulders and spine. IMPRESSION: 1. Emphysema with chronic interstitial coarsening. 2. Stable 3.5 cm irregular nodular density of the right upper lung. ACT 112: Negative or not required by law. The above report was generated using voice recognition software. It may contain grammatical, syntax o r spelling errors. Electronically signed by: Francis Triana M.D. 12/11/2022 7:02 AM
[2022-12-11] MEDS ORDERED: methylPREDNISolone 125 MG/2 ML VIAL IV STA (07:08)
[2022-12-11 07:13] LABS: INR 2.3 (0.9-1.1); Prothrombin Time 23.3 Seconds (9.0-12.0)
[2022-12-11 07:45] LABS: HCO3 VBG 30 mmol/L; Oxygen Saturation VBG 79.4 %; PCO2 VBG 44 mmHg (38-50); PO2 VBG 46 mmHg; pH VBG 7.44 (7.36-7.41)
[2022-12-11 08:04] LABS: Appearance Urine Cloudy (Clear); Bacteria Urine Automated Negative (Negative); Bilirubin Urine Negative (Negative); Blood Urine Negative (Negative); Cast Urine Automated 0 /lpf (0-5); Color Urine Yellow; Epithelial Cell Urine Auto 0-5 /lpf (0-5); Glucose Urine UA Negative (Negative); Ketones Urine Negative (Negative); Leukocyte Esterase Urine Negative (Negative); Nitrite Urine Negative (Negative); Protein Urine Negative (Negative); Urobilinogen Urine Negative (Negative)
--- NOTE | 2022-12-11 10:11 | History & Physical Report ---
Date of Service December 11, 2022 Assessment & Plan (1) Hypoxia: Plan: 87-year-old female with history of PAF on Warfarin, MAC infection in 2000 presenting for fevers and wheezing, subsequently found to be hypoxic on arrival with CXR demonstrating emphysematous changes. Hypoxia - Found to be 86% RA on arrival requiring 2-3L to maintain saturations of ~92- 94% - Work-up as follows: -- Reporting wheezing at home, subjective fevers last night (which was the reason for admission) -- Mild leukocytosis (~13) with relative leukopenia and monocytosis +shift -- COVID, Flu, RSV are NEGATIVE -- CXR: emphysema and chronic interstitial coarsening, alongside 3.5cm irregular nodular density in the RUL -- Minimal smoking history - Suspect likely secondary to acute viral bronchitis, possibly with superimposed features of ?emphysema exacerbation. No e/o volume overload. On Warfarin. - Treat as mild emphysematous exacerbation: scheduled DuoNebs, azithromycin, methylprednisolone (can transition to PO tmrw), mucociliary clearance - Recommend PFTs as outpatient; unclear at this time, based on reported history from patient, if h/o true lung disease vs. radiologic emphysema (2) Paroxysmal atrial fibrillation: Plan: - Rate controlled - Continue Warfarin, INR 2-3, presently at goal (3) Abrasion of face: Plan: - Contusion noted on exam from previous fall; resolving nicely - Complicated by Warfarin previously, OK to continue (4) Pulmonary nodule: Plan: - CXR revealing stable 3.5cm irregular nodular density in the RUL - Unclear how much this has been worked up. Shoudl consider pursuing CT scan as outpatient for further diagnostic evaluation. Plan Code: DNR/DNI PPX: Warfarin ongoing Diet: Regular Dispo: MS History of Present Illness Primary Care Provider: [facility] 87-year-old female with history of PAF on Warfarin, MAC infection in 2000 presenting for fevers. She said yesterday she felt wheezy. She says that over the last several weeks, maybe she has been more wheezy than usual, and has been getting somewhat ROSAS. Reports coughing with lying down, but denies SOB or PND. Denies CP/palpitations/SOB. Initially, she tells me that she felt 'hot' last night, like she had a fever, and short of breath; however, she then said she wasn't short of breath. A+Ox4. No recent n/v/d. No recent f/c/NS. No sick contacts. Living at [facility]. She tell she was recently treated for a UTI. She has no symptoms now. Medications reviewed, as on chart. Smoked for one week in college. Denies h/o lung disease. In ED found to be hypoxemic to 86% on RA. Mild leukocytosis with shift, but also +monocytosis and relative lymphopenia. VBG with hypercarbia. BUN 30 / Cr 0.78. Lactate normal. CXR with emphysema and chronic interstitial coarsening, alongside 3.5cm irregular nodular density in the RUL. ECG demonstrating nonspecific ST/T changes, most notable in the inferior leads. She was given albuterol, NSS, and methylprednisolone. Allergies Allergy/AdvReac Type Severity Reaction Status Date / Time ciprofloxacin [Cipro] AdvReac Severe nausea,head Verified 11/28/22 00:13 ache,diarrh ea cefuroxime AdvReac Intermediate nausea,head Verified 11/28/22 00:13 ache,diarrh ea cephalexin AdvReac Intermediate nausea,head Verified 11/28/22 00:13 ache,diarrh ea Penicillins AdvReac Intermediate nausea,head Verified 11/28/22 00:13 ache,diarrh ea Home Medications Medication Instructions Recorded Confirmed Type acetaminophen 500 mg capsule 1,000 mg PO BID PRN Pain 12/03/21 11/28/22 History amlodipine 2.5 mg tablet (Norvasc) 2.5 mg PO DAILY 12/03/21 11/28/22 History aspirin 81 mg tablet,delayed 81 mg PO DAILY 12/03/21 11/28/22 History release calcium carbonate 600 mg calcium 1,200 mg PO DAILY 12/03/21 11/28/22 History (1,500 mg) tablet (Calcium) metoprolol tartrate 50 mg tablet 50 mg PO BID 12/03/21 11/28/22 History warfarin 2 mg tablet See Rx Instructions .Route .COMPLEX 11/28/22 11/28/22 History aspirin 81 mg tablet,delayed 81 mg PO QAM #30 tabs 12/01/22 Rx release Past Med/Surg History Medical History (Updated 12/11/22 @ 10:41 by Vinnie Hutchins MD) Acute cystitis with hematuria Acute upper respiratory infection, unspecified Bronchiectasis Fall Frequent UTI Hypertension Lung infection Major depressive disorder Other polyosteoarthritis Other specified dermatitis Paroxysmal atrial fibrillation Tinea corporis Urge incontinence Family History (Updated 12/03/21 @ 14:39 by Celena Lai RN) Mother Hypertension Social History (Updated 12/03/21 @ 14:40 by Celena Lai RN) Smoking Status: Never smoker Second Hand Exposure: No; Hx Alcohol Use: No Hx Substance Use: No Preferred Language: Ivorian Communication Ability: Effective Firer Locomotive Crane Required: No Beliefs That Will Affect Care: None marital status: Current Living Situation: Alone current occupational status: retired Feels Safe at Home: Yes Assistive Devices: Cane, Glasses and Walker Review of Systems Review of Systems: as per HPI Physical Exam Physical Exam: General: 87-year old female who is alert, oriented, and appears in no acute distress. HEENT: NCAT. - Eyes - Sclera are white, anicteric, and without injection. - Mouth - MMM - Neck - supple, no appreciable JVD Cardiac: Normal rate and regular rhythm; S1 and S2 present with no murmurs, rubs, or gallops. Pulmonary: Good respiratory effort with symmetric expansion of the chest. No use of accessory muscles. Diminished and coarse lung sounds in the bases bilaterally, no significant wheezes or crackles. Abdominal: Normoactive bowel sounds. Abdomen was soft, nondistended, and non- tender to palpation. Extremities: Upper and lower extremities are warm and well perfused. No peripheral edema in the lower extremities bilaterally Psych: Well-developed, well-nourished, appropriately dressed for occasion. Behavior is cooperative and appropriate. Affect is WNL. Insight is appropriate. Results & Data Results & Data ([facility]) Vital Signs (Past 12 Hours) Vital Signs Temp Pulse Pulse Resp BP BP Pulse Ox 12/11/22 09:00 92 H 18 129/71 94 12/11/22 09:13 86 L 12/11/22 06:20 100 H 22 97 12/11/22 06:10 103 H 29 H 97 12/11/22 06:00 105 H 29 H 97 12/11/22 06:00 133/95 12/11/22 05:50 108 H 25 H 97 12/11/22 05:40 110 H 36 H 89 L 12/11/22 05:30 111 H 24 91 12/11/22 05:20 111 H 23 91 12/11/22 05:10 110 H 28 H 91 12/11/22 05:00 114 H 26 H 91 12/11/22 05:00 185/122 H 12/11/22 04:56 115 H 25 H 92 12/11/22 05:12 96 12/11/22 05:12 108 H 24 96 12/11/22 04:39 37.2 C 112 H 21 187/100 H 91 O2 Del Method O2 Flow Rate 12/11/22 09:00 12/11/22 09:13 Room Air 12/11/22 06:20 12/11/22 06:10 12/11/22 06:00 12/11/22 06:00 12/11/22 05:50 12/11/22 05:40 12/11/22 05:30 12/11/22 05:20 12/11/22 05:10 12/11/22 05:00 12/11/22 05:00 12/11/22 04:56 12/11/22 05:12 Nasal Cannula 12/11/22 05:12 Nasal Cannula 2 12/11/22 04:39 Nasal Cannula 2 Code Status & VTE Plan VTE Prophylaxis Plan VTE Prophylaxis will be ordered: Yes Supervising Physician Co-Signing Physician Notes I personally examined the patient and verified all [place] points of history and exam, discussed case, and agree with decision making with Dr Hutchins feeling better. Does not feel as hot. No shortness of breath.. Vitals noted, in general she is awake and alert pleasant no distress. Lungs are somewhat coarse but no rales rhonchi or wheezes good effort. No accessory muscle use. Skin without rashes pallor or icterus. Neuro without focal deficits. Bronchitis/hypoxiasteroids, azithromycin, supportive care. Otherwise as above Resident Activity Tracking Resident Involvement: Resident Care Provided Care Provided: Adult Hospital Medicine
[2022-12-11] MEDS ORDERED: ACETAMINOPHEN 325 MG TAB PO PRN ×2 (11:11→14:00)
[2022-12-11] MEDS ORDERED: MAGNESIUM HYDROXIDE SUSP 30 ML UDC PO PRN (11:11)
[2022-12-11] MEDS ORDERED: ONDANSETRON INJ 2 MG/ML 2 ML VIAL IV PRN (11:11)
[2022-12-11] MEDS ORDERED: ALUMINUM/MAGNESIUM SUSP 30 ML UDC PO PRN (11:11)
[2022-12-11] MEDS ORDERED: POLYETHYLENE (MIRALAX) 17 GM PACK PO PRN (11:11)
[2022-12-11] MEDS ORDERED: AZITHROMYCIN 250 MG TAB PO ONE (11:30)
[2022-12-11] MEDS: UMECLIDINIUM BROMIDE 62.5MCG/BLISTER 7 PUFFS/INHALER INH SCH (12:48)
[2022-12-11] MEDS: FLUTICASONE/VILANTEROL 100/25MCG 14 PUFFS/INHALER INH SCH (12:48)
[2022-12-11] MEDS: methylPREDNISolone 40 MG in SYRINGE 0 ML IV SCH ×2 (12:48→20:30)
[2022-12-11] MEDS: ALBUT/IPRATROP 3MG/0.5MG NEB 3 ML VIAL NEB SCH ×3 (13:01→20:12)
[2022-12-11] MEDS ORDERED: WARFARIN SOD 4 MG TAB PO SCH (16:00)
--- NOTE | 2022-12-11 17:48 | Billing Data ---
Date of Service December 11, 2022 Coding Level of Care Code 30351 INT INP/OBS CARE
[2022-12-11] MEDS: METOPROLOL TARTRATE 50 MG TAB PO SCH (20:29)
[2022-12-12 07:12] LABS: Basophils # (auto) 0.03 K/uL (0-0.2); Basophils % (auto) 0.1 %; Hematocrit (blood only) 37.5 % (34.1-44.9); Hemoglobin 12.4 g/dl (12.0-16.0); Immature Granulocytes # (auto) 0.12 K/uL (0.00-0.02); Immature Granulocytes % (auto) 0.6 %; Lymphocytes # (auto) 1.25 K/uL (1.2-3.4); Lymphocytes % (auto) 6.2 %; Mean Corpuscular Hemoglobin 31.1 pg (25.0-34.0); Mean Corpuscular Hgb Conc 33.1 g/dL (32.0-36.0); Mean Platelet Volume 9.8 fL (9.4-12.3); Monocytes # (auto) 0.75 K/uL (0.24-0.82); Monocytes % (auto) 3.7 %; Neutrophils # (auto) 18.03 K/uL (1.4-6.5); Neutrophils % (auto) 89.4 %; Platelet Count 212 K/uL (130-400); RDW Coefficient of Variation 14.9 % (11.5-14.5); RDW Standard Deviation 51.4 fL (36.4-46.3); Red Blood Count 3.99 M/uL (3.93-5.22); White Blood Count 20.18 K/ul (4.8-10.8)
[2022-12-12] MEDS: ALBUT/IPRATROP 3MG/0.5MG NEB 3 ML VIAL NEB SCH ×2 (07:19→10:45)
[2022-12-12 07:20] LABS: Prothrombin Time 29.8 Seconds (9.0-12.0)
--- NOTE | 2022-12-12 07:28 | Discharge Summary ---
Date of Service December 12, 2022 Admission HPI Per Admitting Provider 87-year-old female with history of PAF on Warfarin, MAC infection in 2000 presenting for fevers. She said yesterday she felt wheezy. She says that over the last several weeks, maybe she has been more wheezy than usual, and has been getting somewhat ROSAS. Reports coughing with lying down, but denies SOB or PND. Denies CP/palpitations/SOB. Initially, she tells me that she felt 'hot' last night, like she had a fever, and short of breath; however, she then said she wasn't short of breath. A+Ox4. No recent n/v/d. No recent f/c/NS. No sick contacts. Living at [facility]. She tell she was recently treated for a UTI. She has no symptoms now. Medications reviewed, as on chart. Smoked for one week in college. Denies h/o lung disease. In ED found to be hypoxemic to 86% on RA. Mild leukocytosis with shift, but also +monocytosis and relative lymphopenia. VBG with hypercarbia. BUN 30 / Cr 0.78. Lactate normal. CXR with emphysema and chronic interstitial coarsening, alongside 3.5cm irregular nodular density in the RUL. ECG demonstrating nonspecific ST/T changes, most notable in the inferior leads. She was given albuterol, NSS, and methylprednisolone. Admission Exam Per Admitting Provider General: 87-year old female who is alert, oriented, and appears in no acute distress. HEENT: NCAT. - Eyes - Sclera are white, anicteric, and without injection. - Mouth - MMM - Neck - supple, no appreciable JVD Cardiac: Normal rate and regular rhythm; S1 and S2 present with no murmurs, r ubs, or gallops. Pulmonary: Good respiratory effort with symmetric expansion of the chest. No use of accessory muscles. Diminished and coarse lung sounds in the bases bilatera lly, no significant wheezes or crackles. Abdominal: Normoactive bowel sounds. Abdomen was soft, nondistended, and non- tender to palpation. Extremities: Upper and lower extremities are warm and well perfused. No peripheral edema in the lower extremities bilaterally Psych: Well-developed, well-nourished, appropriately dressed for occasion. Behavior is cooperative and appropriate. Affect is WNL. Insight is appropriate. Principal Diagnosis hypoxia, suspected bronchitis Discharge Exam General: 87-year old female who is alert, oriented, and appears in no acute distress. HEENT: NCAT. - Eyes - Sclera are white, anicteric, and without injection. - Mouth - MMM - Neck - supple, no appreciable JVD Cardiac: Normal rate and regular rhythm; S1 and S2 present with no murmurs, rubs, or gallops. Pulmonary: Good respiratory effort with symmetric expansion of the chest. No use of accessory muscles. Diminished and coarse lung sounds in the bases bilaterally, no significant wheezes or crackles. Abdominal: Normoactive bowel sounds. Abdomen was soft, nondistended, and non- tender to palpation. Extremities: Upper and lower extremities are warm and well perfused. No peripheral edema in the lower extremities bilaterally Psych: Well-developed, well-nourished, appropriately dressed for occasion. Behavior is cooperative and appropriate. Affect is WNL. Insight is appropriate. Discharge Data Allergies Allergy/AdvReac Type Severity Reaction Status Date / Time ciprofloxacin [Cipro] AdvReac Severe nausea,head Verified 11/28/22 00:13 ache,diarrh ea cefuroxime AdvReac Intermediate nausea,head Verified 11/28/22 00:13 ache,diarrh ea cephalexin AdvReac Intermediate nausea,head Verified 11/28/22 00:13 ache,diarrh ea Penicillins AdvReac Intermediate nausea,head Verified 11/28/22 00:13 ache,diarrh ea Consultations 12/11/22 09:17 ED Decision to Admit Stat Hospital Course (1) Hypoxia: 87-year-old female with history of PAF on Warfarin, MAC infection in 2000 presenting for fevers and wheezing, subsequently found to be hypoxic on arrival with CXR demonstrating emphysematous changes. Hypoxia from Suspected Bronchitis - Found to be 86% RA on arrival requiring 2-3L to maintain saturations of ~92- 94% in setting of reported +subj fevers and wheezing at home - Work-up as follows: -- Mild leukocytosis (~13) with relative leukopenia and monocytosis +shift -- COVID, Flu, RSV are NEGATIVE -- CXR: emphysema and chronic interstitial coarsening, alongside 3.5cm irregular nodular density in the RUL -- Minimal smoking history - Suspect likely secondary to acute viral bronchitis, possibly with superimposed features of ?emphysema exacerbation. - Treat as mild emphysematous exacerbation: scheduled DuoNebs while here --> + azithromycin x 5 days, prednisone 40mg x 5 days (end 12/16 for both) - Recommend PFTs as outpatient; unclear at this time, based on reported history from patient, if h/o true lung disease vs. radiologic emphysema --> Will empirically initiate Incruse based on suspicion for underlying emphysema throughout this admission (2) Paroxysmal atrial fibrillation: - Rate controlled - Continue Warfarin, INR 2-3, presently at goal (INR 3.0 on 12/12/22) - INR check in 2-3 days (3) Abrasion of face: - Contusion noted on exam from previous fall; resolving nicely - Complicated by Warfarin previously, OK to continue (4) Pulmonary nodule: - CXR revealing stable 3.5cm irregular nodular density in the RUL - Unclear how much this has been worked up. Shoudl consider pursuing CT scan as outpatient for further diagnostic evaluation. Plan Code: DNR/DNI PPX: Warfarin ongoing Diet: Regular Total Time Total Time Spent Total Time Spent (In Minutes): 20 Discharge Plan Discharge Items Patient Disposition: Home - Self-Care Reason For Visit: COPD EXACERBATION Discharge Diagnosis: hypoxia from suspected bronchitis Activity: Per Instructions section Non-emergency contact: Primary Care Provider Call non-emergency contact if: you have any medication questions, your symptoms worsen and your temperature is above 101 Follow-up/Referrals: Bette Thomas [Primary Care Provider] - Diet: Regular Ambulatory Orders: Prothrombin Time INR (Timed) Timeframe: 3 Days Location: Determined by Patient Ordered By: Vinnie Rooney Attending Provider Instructions: You are seen in [facility] for evaluation of fever and shortness of breath. Upon arrival here, you were found to require oxygen to maintain adequate respiratory status. Thankfully, you demonstrated persistent and steady improvement with oral and IV medications to help reduce inflammation in your lungs. We primarily suspect that your symptoms were due to a viral infection (bronchitis). Thankfully, you demonstrated persistent improvement prior to your discharge. Upon discharge, please note the following medications additions/changes/removals: Take prednisone 40 mg every morning for the next 3 days Take azithromycin 250 mg every morning for the next 3 days Take Incruse Ellipta (Inhaler) 1 puff daily Resume your home warfarin regimen Please follow-up with your primary care physician within 1 week to review this visit. Please also get your INR checked in ~3 days (it was 3.0 on discharge). In the interim, if you experience worsening shortness of breath, wheezing, chest pain, palpitations, feelings like you are going to pass out, or other worrisome symptoms, please report to the ER immediately for evaluation. It was a pleasure for caring for you while here, we wish you all the best in your recovery. Pending Studies at Discharge: No Stand-Alone Forms: My [facility], Smoking Cessation Medications and DC Order Prescriptions: New azithromycin 250 mg Tablet 250 mg PO QAM Qty: 3 0RF Incruse Ellipta 62.5 mcg/actuation Blister With Device 1 inh inhalation DAILY Qty: 30 1RF prednisone 20 mg tablet 40 mg PO QAM 3 Days Qty: 6 0RF Continued calcium carbonate [Calcium 600] 600 mg calcium (1,500 mg) tablet 1,200 mg PO DAILY aspirin 81 mg tablet,delayed release (DR/EC) 81 mg PO DAILY acetaminophen 500 mg capsule 1,000 mg PO BID PRN (Reason: Pain) amlodipine [Norvasc] 2.5 mg tablet 2.5 mg PO DAILY metoprolol tartrate 50 mg tablet 50 mg PO BID warfarin 2 mg tablet See Rx Instructions .ROUTE .COMPLEX Rx Instructions: ON HOLD PER PT INR (8) DO NOT TAKE 11/27/22-11/30/22, REPEAT INR. THEN DOSE WILL BE GIVEN. NORMALLY PER PT TAKES 2 MG ON MON, WED, & FRI. TAKES 4 MG ON SUN, TU, THURS, & SAT. aspirin 81 mg Tablet,Delayed Release (Dr/Ec) 81 mg PO QAM Qty: 30 0RF Discharge Orders: Discharge Order (Routine); Ordered 12/12/22 Ordered By: Vinnie Smith/Other Patient Handouts: Acute Bronchitis, What to Know When Taking Warfarin Admission Data Admit Date/Time: 12/11/22 09:25 Attending Provider: Saad Morales Admit Provider: Vinnie Alvarado Primary Care Provider: Bette Thomas Other Providers: Vinnie Alvarado Other Interventions: Discharge Summary Assessment (RN) Last Done: 12/12/22 11:34 Supervising Physician Co-Signing Physician Notes I personally examined the patient and verified all escamilla points of history and exam, discussed case, and agree with decision making with Dr Hutchins Feels good and would like to go Vitals noted, in general she is awake and alert pleasant no distress. Lungs clear to auscultation bilaterally no rales rhonchi or wheezes good effort. No accessory muscle use. Skin without rashes pallor or icterus. Neuro without focal deficits. Bronchitis/hypoxiasteroids, azithromycin, supportive care. Stable for home on short course p.o. Otherwise as above Resident Activity Tracking Resident Involvement: Resident Care Provided Care Provided: Adult Hospital Medicine
[2022-12-12] MEDS: METOPROLOL TARTRATE 50 MG TAB PO SCH (07:52)
[2022-12-12] MEDS: UMECLIDINIUM BROMIDE 62.5MCG/BLISTER 7 PUFFS/INHALER INH SCH (07:53)
[2022-12-12] MEDS: FLUTICASONE/VILANTEROL 100/25MCG 14 PUFFS/INHALER INH SCH (07:54)
[2022-12-12 08:17] LABS: Anion Gap 8 (3-11); Calcium 10.2 mg/dl (8.5-10.1); Carbon Dioxide 25 mmol/L (21-32); Chloride 106 mmol/L (98-107); Sodium 139 mmol/L (136-145)
[2022-12-12 08:22] LABS: BUN Creatinine Ratio 42.9 (10-20); Blood Urea Nitrogen 36 mg/dl (6-23); Est GFR (African American) 71.9 ml/min; Est GFR (Non-African American) 62.1 ml/min; Glucose 124 mg/dl (70-99(Fasting))
[2022-12-12] MEDS ORDERED: CALCIUM CARBONATE 1250MG TAB PO SCH (09:00)
[2022-12-12] MEDS ORDERED: AZITHROMYCIN 250 MG TAB PO SCH (09:00)
[2022-12-12] MEDS ORDERED: ASPIRIN 81 MG ECTAB PO SCH ×2 (09:00)
[2022-12-12] MEDS ORDERED: amLODIPine BESYLATE 5 MG TAB PO SCH (09:00)
[2022-12-12] MEDS ORDERED: predniSONE 20 MG TAB PO SCH (09:00)
--- NOTE | 2022-12-12 10:38 | Electrocardiogram Report ---
Test Reason : Blood Pressure : / mmHG Vent. Rate : 111 BPM Atrial Rate : 111 BPM P-R Int : 140 ms QRS Dur : 068 ms QT Int : 332 ms P-R-T Axes : 086 068 079 degrees QTc Int : 451 ms Poor data quality, interpretation may be adversely affected Sinus tachycardia Premature atrial complexes Possible Left atrial enlargement Nonspecific ST and T wave abnormality Abnormal ECG When compared with ECG of 27-NOV-2022 22:24, No significant change Confirmed by Lamonte Campbell ([id number]) on 12/12/2022 10:37:35 AM Referred By: Confirmed By:Lamonte Campbell
[2022-12-12] MEDS ORDERED: WARFARIN SOD 2 MG TAB PO SCH (16:00)
--- NOTE | 2022-12-12 18:31 | Billing Data ---
Date of Service December 12, 2022 Coding Level of Care Code HOSP INP/OBS DISCH 30 MIN/LESS
--- NOTE | 2022-12-12 18:31 | Billing Data ---
Date of Service December 12, 2022 Coding Level of Care Code HOSP INP/OBS DISCH 30 MIN/LESS
== END 2022-12-12 13:15 | disposition home or self-care (01) ==
LOC: ED 04:43 → INTOOBSV 09:25 → 3N 09:25 → SUATTDRO 09:25 → 3N 11:00
DX: I48.0 Paroxysmal atrial fibrillation; Z88.0 Allergy status to penicillin; R91.1 Solitary pulmonary nodule; J44.1 Chronic obstructive pulmonary disease with (acute) exacerbation; Z88.1 Allergy status to other antibiotic agents; Z79.01 Long term (current) use of anticoagulants; D72.829 Elevated white blood cell count, unspecified; E87.20 Acidosis, unspecified; R09.02 Hypoxemia

== ENCOUNTER 2024-03-30 17:06 | Inpatient (IN) ==
--- NOTE | 2024-03-30 17:51 | XRay Report ---
XR chest 1V not portable HISTORY: Weakness COMPARISON: Chest 03/18/2024. FINDINGS: No pneumothorax. No pleural effusions. S-shaped scoliosis again noted. There are old, heale d right-sided rib fractures. Stable focal irregular density within the right upper lobe. No new focal lung consolidations to suggest a pneumonia. No evidence for pulmonary edema. The heart remains mildl y enlarged. Left basilar linear densities favor subsegmental atelectasis. Emphysema again noted. IMPRESSION: No significant change compared to the prior study. No acute process. ACT 112: Negative or not required by law. Electronically signed by: Willy Warren M.D. 03/30/2024 5:50 PM
--- NOTE | 2024-03-30 18:31 | Emergency Department Note ---
Impression & Plan Confusion, Fatigue, Hallucinations ED Provider Note ED Provider Note NAME: NANCY BERNARDO AGE:88 SEX: Female : 1935 ARRIVES VIA: EMS INFORMANT: Patient ED PROVIDER(s): Tara Acuña DO CHIEF COMPLAINT: Fatigue, confusion HPI: This is an 88-year-old female who presents emerged department via EMS due to concern for confusion. Patient states she has been fatigued recently but the nurses at the facility where she resides think she is confused. She does not believe she is confused. She denies any pain, change in appetite, headaches, change in urine, change in bowel movements, or difficulty walking. She does not recall all of her current medications. She denies any recent illness. PAST MEDICAL HISTORY:See Below PAST SURGICAL HISTORY:See Below FAMILY HISTORY:See Below SOCIAL HISTORY:See Below HOME MEDICATIONS:See Below ALLERGIES:See Below VITALS:See Below PHYSICAL EXAMINATION: GENERAL: alert, well appearing, well nourished, no distress, non-toxic EYE EXAM: normal conjunctiva, PERRL and EOM's grossly intact OROPHARYNX: no exudate, no erythema, lips, buccal mucosa, and tongue normal and mucous membranes are dry NECK: supple, no nuchal rigidity, no adenopathy, non-tender LUNGS: Clear to auscultation. Normal chest wall mechanics, no w/r/r HEART: no murmurs, S1 normal and S2 normal ABDOMEN: abdomen soft, non-tender, normo-active bowel sounds, no masses, no rebound or guarding. SKIN: no rashes, petechiae, orbruising UPPER EXTREMITIES: upper extremities are grossly normal. FROM, nml pulses b/l. LOWER EXTREMITIES: No pitting edema. FROM, nml pulses b/l. NEURO EXAM: Patient oriented except to events of today and some past medical history, cranial nerves II-XII grossly intact, normal speech, no facial droop,nogross weakness of arms, no gross weakness of legs. Gross sensation intact. No ataxia. Vital Signs: reviewed and remarkable Differential Diagnosis: dehydration, stroke, anemia, hypoglycemia, hyponatremia, hypernatremia, urinary tract infection, pneumonia, bronchitis, sepsis, gastroenteritis, additional abdominal pathology, metabolic abnormalities, as well as others were considered MEDICAL DECISION MAKING: This is an 88-year-old female sent to the emergency department via EMS from a local facility due to concern for confusion. Patient had no complaints on bedside exam, she was afebrile vital signs stable. Labs drawn and sent, IV established, EKG and chest x-ray performed bedside interpreted by me and patient monitored on telemetry. Patient given gentle IV fluid hydration as she did appear clinically dehydrated. Patient sent for CT of the head additionally which was unremarkable. Patient's labs reassuring. Eventually urine collected as well and sent for analysis. No evidence of acute infection. I did call and leave a message with the patient's daughter listed as the next of kin, however I did not receive a return phone call. I did reach out to the staff at the [facility] to discuss her recent symptoms and their concerns. It sounds as though her confusion has accompanying hallucinations and inability to perform her ADLs and she is in an independent section of the facility typically able to do these things. No prior history of dementia, and symptoms do not seem isolated to the evenings and overnight. Due to concern for unclear cause of her confusion as well as no return call from family to discuss their wishes, case discussed with the hospitalist team for additional evaluation and monitoring. Consultation(s): 230: Discussed with nursing staff at the [facility]. This am more confused, hallucinating, couldn't do ADL's. States it has been progressing over the last few days. She was changed to Eliquis several weeks ago. No other med changes. No recent illness. Symptoms not necessarily noticed in the evening or overnight hours. No recent falls. 2318: Discussed with Dr. Kline, [facility] hospitalist team, for additional evaluation and management. ER Treatment Provided: See below Diagnostics Interpreted By Me: -ECG: Normal sinus at 61, normal axis, normal intervals, PAC noted, no acute ST/T wave changes -Cardiac Monitoring: An order was placed for continuous cardiac monitoring. The monitor shows a rate of 70 with normal sinus rhythm. -Laboratory studies: As stated above and show below. -Imaging studies: X-ray Chest: A single view study of the chest was reviewed and was negative for cardiomegaly, focal infiltrate, effusion, pulmonary edema, or wide mediastinum. Triage Nursing Note Reviewed Prior/Outside Records Reviewed Past Med/Surg History Medical History Hypoxia Frequent UTI Other polyosteoarthritis Bronchiectasis Fall Acute upper respiratory infection, unspecified Other specified dermatitis Tinea corporis Major depressive disorder Paroxysmal atrial fibrillation Acute cystitis with hematuria Urge incontinence Lung infection Hypertension Family History Mother Hypertension Social History Smoking Status: Never smoker Second Hand Exposure: No; Do You Dip or Chew Tobacco: No; Hx Alcohol Use: No Hx Substance Use: No Preferred Language: Iranian Communication Ability: Effective Steeping Press Operator Required: No Beliefs That Will Affect Care: None marital status: Current Living Situation: Alone Current [facility] Situation Comment: [facility] current occupational status: retired Feels Safe at Home: Yes Diet: regular Assistive Devices: Walker Allergies Allergies Allergy/AdvReac Type Severity Reaction Status Date / Time ciprofloxacin [Cipro] AdvReac Severe nausea,head Verified 11/06/23 15:01 ache,diarrh ea cefuroxime AdvReac Intermediate nausea,head Verified 11/06/23 15:01 ache,diarrh ea cephalexin AdvReac Intermediate nausea,head Verified 11/06/23 15:01 ache,diarrh ea Penicillins AdvReac Intermediate nausea,head Verified 11/06/23 15:01 ache,diarrh ea Home Meds Home Medications Medication Instructions Recorded Confirmed calcium carbonate (Calcium 600) 600 mg PO DAILY 12/03/21 03/30/24 Probiotic Gummy 2 tab PO QAM 11/06/23 03/30/24 acetaminophen 500 mg tablet 500 mg PO Q4H PRN Pain 11/06/23 11/06/23 (Tylenol Extra Strength) albuterol sulfate 90 mcg/actuation 2 puff inhalation Q6H PRN Wheezing 11/06/23 03/30/24 aerosol inhaler ceftriaxone 1 gram solution for 1 g IM QPM 11/06/23 11/06/23 injection cranberry fruit concentrate 500 mg 1,000 mg PO HS 11/06/23 03/30/24 capsule (Cran-Max) metoprolol tartrate 25 mg tablet 25 mg PO BID 11/06/23 03/30/24 warfarin 2.5 mg tablet 2.5 mg PO HS 11/06/23 11/06/23 albuterol sulfate 2.5 mg/3 mL mg 03/30/24 (0.083 %) solution for nebulization amlodipine 2.5 mg tablet 2.5 mg PO DAILY 03/30/24 03/30/24 apixaban 2.5 mg tablet (Eliquis) 2.5 mg PO BID 03/30/24 03/30/24 lorazepam 0.5 mg tablet 0.5 mg PO BID PRN Anxiety 03/30/24 03/30/24 melatonin 3 mg PO HS PRN Insomnia 03/30/24 03/30/24 sertraline 100 mg tablet 100 mg PO DAILY 03/30/24 03/30/24 Previous Rx's Medication Instructions Recorded aspirin 81 mg tablet,delayed 81 mg PO QAM #30 tabs 12/01/22 release Results & Data (ED) Vital Signs Vital Signs - 24 hr 03/30/24 17:01 03/30/24 17:22 03/30/24 17:22 Pulse Rate 61 67 Pulse Rate from SpO2 Sensor Respiratory Rate 18 18 Respiratory Effort / Characteristics Respiratory Depth Blood Pressure 190/110 H Blood Pressure Mean 136 Blood Pressure Position Sitting Pulse Oximetry 93 94 94 Oxygen Delivery Method Room Air Room Air Room Air Sepsis Recent Fever Within 48 Hours No Sepsis New/Unexplained Change in Mental Status N/A Sepsis Action Taken by Nursing No Action Required 03/30/24 17:32 03/30/24 18:00 03/30/24 18:00 Pulse Rate 59 L 62 Pulse Rate from SpO2 Sensor 60 Respiratory Rate 27 H Respiratory Effort / Characteristics Respiratory Depth Blood Pressure 190/110 H Blood Pressure Mean 132 Blood Pressure Position Pulse Oximetry 92 Oxygen Delivery Method Sepsis Recent Fever Within 48 Hours Sepsis New/Unexplained Change in Mental Status Sepsis Action Taken by Nursing 03/30/24 18:10 03/30/24 18:20 03/30/24 18:30 Pulse Rate 63 62 60 Pulse Rate from SpO2 Sensor 62 60 59 L Respiratory Rate 27 H 23 21 Respiratory Effort / Characteristics Respiratory Depth Blood Pressure Blood Pressure Mean Blood Pressure Position Pulse Oximetry 92 91 90 Oxygen Delivery Method Sepsis Recent Fever Within 48 Hours Sepsis New/Unexplained Change in Mental Status Sepsis Action Taken by Nursing 03/30/24 18:30 03/30/24 19:16 03/30/24 19:20 Pulse Rate 73 90 Pulse Rate from SpO2 Sensor 70 83 Respiratory Rate 27 H 27 H Respiratory Effort / Characteristics Respiratory Depth Blood Pressure 207/91 H Blood Pressure Mean 129 Blood Pressure Position Pulse Oximetry 90 Oxygen Delivery Method Sepsis Recent Fever Within 48 Hours Sepsis New/Unexplained Change in Mental Status Sepsis Action Taken by Nursing 03/30/24 19:36 03/30/24 19:36 03/30/24 19:40 Pulse Rate 67 67 Pulse Rate from SpO2 Sensor 69 Respiratory Rate 29 H 20 Respiratory Effort / Characteristics Respiratory Depth Blood Pressure 182/97 H Blood Pressure Mean 121 Blood Pressure Position Pulse Oximetry 90 Oxygen Delivery Method Sepsis Recent Fever Within 48 Hours Sepsis New/Unexplained Change in Mental Status Sepsis Action Taken by Nursing 03/30/24 19:50 03/30/24 20:00 03/30/24 20:01 Pulse Rate 67 64 70 Pulse Rate from SpO2 Sensor Respiratory Rate 19 20 23 Respiratory Effort / Characteristics Respiratory Depth Blood Pressure Blood Pressure Mean Blood Pressure Position Pulse Oximetry Oxygen Delivery Method Sepsis Recent Fever Within 48 Hours Sepsis New/Unexplained Change in Mental Status Sepsis Action Taken by Nursing 03/30/24 20:01 03/30/24 20:10 03/30/24 20:20 Pulse Rate 65 66 Pulse Rate from SpO2 Sensor Respiratory Rate 21 22 Respiratory Effort / Characteristics Respiratory Depth Blood Pressure 185/93 H Blood Pressure Mean 112 Blood Pressure Position Pulse Oximetry Oxygen Delivery Method Sepsis Recent Fever Within 48 Hours Sepsis New/Unexplained Change in Mental Status Sepsis Action Taken by Nursing 03/30/24 20:30 03/30/24 20:31 03/30/24 20:31 Pulse Rate 72 68 Pulse Rate from SpO2 Sensor Respiratory Rate 23 16 Respiratory Effort / Characteristics Respiratory Depth Blood Pressure 194/141 H Blood Pressure Mean 154 Blood Pressure Position Pulse Oximetry Oxygen Delivery Method Sepsis Recent Fever Within 48 Hours Sepsis New/Unexplained Change in Mental Status Sepsis Action Taken by Nursing 03/30/24 20:40 03/30/24 20:50 03/30/24 21:00 Pulse Rate 68 68 63 Pulse Rate from SpO2 Sensor 65 Respiratory Rate 21 16 17 Respiratory Effort / Characteristics Respiratory Depth Blood Pressure Blood Pressure Mean Blood Pressure Position Pulse Oximetry 90 Oxygen Delivery Method Sepsis Recent Fever Within 48 Hours Sepsis New/Unexplained Change in Mental Status Sepsis Action Taken by Nursing 03/30/24 21:10 03/30/24 21:20 03/30/24 21:25 Pulse Rate 71 68 79 Pulse Rate from SpO2 Sensor 71 66 69 Respiratory Rate 20 26 H 28 H Respiratory Effort / Characteristics Respiratory Depth Blood Pressure Blood Pressure Mean Blood Pressure Position Pulse Oximetry 95 93 Oxygen Delivery Method Sepsis Recent Fever Within 48 Hours Sepsis New/Unexplained Change in Mental Status Sepsis Action Taken by Nursing 03/30/24 21:26 03/30/24 21:30 03/30/24 21:30 Pulse Rate 69 66 Pulse Rate from SpO2 Sensor 64 Respiratory Rate 15 Respiratory Effort / Characteristics Respiratory Depth Blood Pressure 193/84 H Blood Pressure Mean 134 Blood Pressure Position Pulse Oximetry 90 Oxygen Delivery Method Sepsis Recent Fever Within 48 Hours Sepsis New/Unexplained Change in Mental Status Sepsis Action Taken by Nursing 03/30/24 21:40 03/30/24 21:50 03/30/24 22:00 Pulse Rate 68 67 70 Pulse Rate from SpO2 Sensor 66 65 66 Respiratory Rate 16 22 Respiratory Effort / Characteristics Respiratory Depth Blood Pressure Blood Pressure Mean Blood Pressure Position Pulse Oximetry 91 Oxygen Delivery Method Sepsis Recent Fever Within 48 Hours Sepsis New/Unexplained Change in Mental Status Sepsis Action Taken by Nursing 03/30/24 22:01 03/30/24 22:01 03/30/24 22:10 Pulse Rate 67 69 Pulse Rate from SpO2 Sensor 68 70 Respiratory Rate 16 23 Respiratory Effort / Characteristics Respiratory Depth Blood Pressure 183/93 H Blood Pressure Mean 137 Blood Pressure Position Pulse Oximetry 92 Oxygen Delivery Method Sepsis Recent Fever Within 48 Hours Sepsis New/Unexplained Change in Mental Status Sepsis Action Taken by Nursing 03/30/24 22:20 03/30/24 22:30 03/30/24 22:31 Pulse Rate 70 68 70 Pulse Rate from SpO2 Sensor 69 68 65 Respiratory Rate 24 18 Respiratory Effort / Characteristics Respiratory Depth Blood Pressure Blood Pressure Mean Blood Pressure Position Pulse Oximetry 91 92 Oxygen Delivery Method Sepsis Recent Fever Within 48 Hours Sepsis New/Unexplained Change in Mental Status Sepsis Action Taken by Nursing 03/30/24 22:31 03/30/24 22:40 03/30/24 22:50 Pulse Rate 66 66 Pulse Rate from SpO2 Sensor 66 67 Respiratory Rate 16 17 Respiratory Effort / Characteristics Respiratory Depth Blood Pressure 178/125 H Blood Pressure Mean 136 Blood Pressure Position Pulse Oximetry 91 Oxygen Delivery Method Sepsis Recent Fever Within 48 Hours Sepsis New/Unexplained Change in Mental Status Sepsis Action Taken by Nursing 03/30/24 23:00 03/30/24 23:10 03/30/24 23:20 Pulse Rate 67 64 68 Pulse Rate from SpO2 Sensor 66 62 68 Respiratory Rate 24 27 H 24 Respiratory Effort / Characteristics Respiratory Depth Blood Pressure Blood Pressure Mean Blood Pressure Position Pulse Oximetry 92 90 Oxygen Delivery Method Sepsis Recent Fever Within 48 Hours Sepsis New/Unexplained Change in Mental Status Sepsis Action Taken by Nursing 03/30/24 23:24 03/30/24 23:30 03/30/24 23:31 Pulse Rate 68 Pulse Rate from SpO2 Sensor 69 Respiratory Rate 19 Respiratory Effort / Characteristics Non-Labored Respiratory Depth Normal Blood Pressure 194/103 H Blood Pressure Mean 159 Blood Pressure Position Pulse Oximetry 92 Oxygen Delivery Method Sepsis Recent Fever Within 48 Hours Sepsis New/Unexplained Change in Mental Status Sepsis Action Taken by Nursing 03/30/24 23:31 03/30/24 23:40 03/30/24 23:50 Pulse Rate 66 61 66 Pulse Rate from SpO2 Sensor 63 61 68 Respiratory Rate 24 18 19 Respiratory Effort / Characteristics Respiratory Depth Blood Pressure Blood Pressure Mean Blood Pressure Position Pulse Oximetry 94 90 89 L Oxygen Delivery Method Sepsis Recent Fever Within 48 Hours Sepsis New/Unexplained Change in Mental Status Sepsis Action Taken by Nursing 03/31/24 00:00 03/31/24 00:01 03/31/24 00:01 Pulse Rate 66 Pulse Rate from SpO2 Sensor 70 66 Respiratory Rate 21 23 Respiratory Effort / Characteristics Respiratory Depth Blood Pressure 173/104 H Blood Pressure Mean 125 Blood Pressure Position Pulse Oximetry 85 L 79 L Oxygen Delivery Method Sepsis Recent Fever Within 48 Hours Sepsis New/Unexplained Change in Mental Status Sepsis Action Taken by Nursing 03/31/24 00:10 03/31/24 00:20 03/31/24 00:30 Pulse Rate 61 75 71 Pulse Rate from SpO2 Sensor 67 74 71 Respiratory Rate 18 21 20 Respiratory Effort / Characteristics Respiratory Depth Blood Pressure Blood Pressure Mean Blood Pressure Position Pulse Oximetry 94 Oxygen Delivery Method Sepsis Recent Fever Within 48 Hours Sepsis New/Unexplained Change in Mental Status Sepsis Action Taken by Nursing 03/31/24 00:30 03/31/24 00:40 Pulse Rate 76 Pulse Rate from SpO2 Sensor 75 Respiratory Rate 20 Respiratory Effort / Characteristics Respiratory Depth Blood Pressure 178/102 H Blood Pressure Mean 124 Blood Pressure Position Pulse Oximetry Oxygen Delivery Method Sepsis Recent Fever Within 48 Hours Sepsis New/Unexplained Change in Mental Status Sepsis Action Taken by Nursing Laboratory Data 03/30/24 17:19 03/30/24 17:19 Lab Results 03/30/24 03/30/24 Range/Units 17:19 20:19 WBC 6.21 (4.8-10.8) K/ul RBC 4.71 (4.20-5.40) M/uL Hgb 14.3 (12.0-16.0) g/dl Hct 44.1 (37.0-47.0) % MCV 93.6 (80.0-100.0) fL MCH 30.4 (25.0-34.0) pg MCHC 32.4 (32.0-36.0) g/dL RDW Std Deviation 43.4 (36.4-46.3) fL RDW Coeff of Rachel 12.7 (11.5-14.5) % Plt Count 189 (130-400) K/uL MPV 10.8 (9.4-12.4) fL Immature Gran % (Auto) 0.3 % Neut % (Auto) 59.7 % Lymph % (Auto) 19.5 % Moffat % (Auto) 11.0 % Eos % (Auto) 8.5 % Baso % (Auto) 1.0 % Neut # (Auto) 3.71 (1.40-6.50) K/uL Lymph # (Auto) 1.21 (1.20-3.40) K/uL Moffat # (Auto) 0.68 H (0.11-0.59) K/uL Eos # (Auto) 0.53 H (0.00-0.50) K/uL Baso # (Auto) 0.06 (0.00-0.20) K/uL Immature Gran # (Auto) 0.02 (0.01-0.20) K/uL PT 10.7 (9.0-12.0) Seconds INR 1.0 (0.9-1.1) APTT 27 (21-31) Seconds PTT Ratio 1.0 Sodium 140 (136-145) mmol/L Potassium 3.3 L (3.5-5.1) mmol/L Chloride 103 (98-107) mmol/L Carbon Dioxide 28 (21-32) mmol/L Anion Gap 9 (3-11) BUN 27 H (6-23) mg/dl Creatinine 0.79 (0.6-1.2) mg/dl Est Cr Clr Drug Dosing 39.1 ml/min Est GFR ( Amer) 76.9 ml/min Est GFR (Non-Af Amer) 66.4 ml/min BUN/Creatinine Ratio 34.2 H (10-20) Glucose 85 (70-99(Fasting)) mg/dl Calcium 10.8 H (8.6-10.3) mg/dl Magnesium 1.8 (1.7-2.4) mg/dl Total Bilirubin 1.2 H (0.2-1.0) mg/dl AST 13 (13-39) U/L ALT 8 (7-52) U/L Alkaline Phosphatase 75 (34-104) U/L Troponin I High Sens 6.5 (0-14) pg/ml Total Protein 7.4 (6.0-8.3) gm/dl Albumin 4.0 (3.4-5.0) gm/dl Globulin 3.4 (2.5-4.0) gm/dl Albumin/Globulin Ratio 1.2 (0.9-2) TSH 1.481 (0.300-4.500) uIu/ml Urine Color Yellow Urine Appearance Cloudy A (Clear) Urine pH 7.0 (4.5-7.5) Ur Specific [place] 1.012 (1.000-1.030) Urine Protein 1+ H (Negative) Urine Glucose (UA) Negative (Negative) Urine Ketones Negative (Negative) Urine Blood Trace H (Negative) Urine Nitrite Negative (Negative) Urine Bilirubin Negative (Negative) Urine Urobilinogen Negative (Negative) Ur Leukocyte Esterase Negative (Negative) Urine WBC (Auto) 0-5 (0-5) /hpf Urine RBC (Auto) 0-2 (0-2) /hpf U Hyaline Cast (Auto) 0-2 (0-2) /lpf U Epithel Cells (Auto) 0-2 (0-2) /hpf Urine Bacteria (Auto) None Seen (None Seen) Administered Medications Sodium Chloride (Nss) 1,000 mls @ 125 mls/hr IV .Q8H [facility] Stop: 04/29/24 18:29 Last Admin: 03/30/24 19:24 Dose: 125 mls/hr Documented By: EVANGELISTA Discontinued Medications Clonidine HCl (Clonidine Hcl 0.1 Mg Tab) 0.1 mg PO NOW ONE Stop: 03/31/24 00:04 Last Admin: 03/31/24 00:57 Dose: 0.1 mg Documented By: SINDI Metoprolol Tartrate (Metoprolol Tartrate 25 Mg Tab) 25 mg PO NOW STA Stop: 03/30/24 21:57 Last Admin: 03/30/24 22:05 Dose: 25 mg Documented By: SINDI Imaging Data Radiologist's Impression: Chest X-Ray 03/30/24 17:14 XR chest 1V not portable HISTORY: Weakness COMPARISON: Chest 03/18/2024. FINDINGS: No pneumothorax. No pleural effusions. S-shaped scoliosis again noted. There are old, healed right-sided rib fractures. Stable focal irregular density within the right upper lobe. No new focal lung consolidations to suggest a pneumonia. No evidence for pulmonary edema. The heart remains mildly enlarged. Left basilar linear densities favor subsegmental atelectasis. Emphysema again noted. IMPRESSION: No significant change compared to the prior study. No acute process. ACT 112: Negative or not required by law. Electronically signed by: Willy Warren M.D. 03/30/2024 5:[address] 03/30/24 18:31 Exam(s): CT HEAD Without Contrast EXAM: CT Head Without Intravenous Contrast CLINICAL HISTORY: Reason for exam: ams. TECHNIQUE: Axial computed tomography images of the head/brain without intravenous contrast. CTDI is 37.19 mGy and DLP is 547.75 mGy-cm. Automated exposure control was utilized for the study. A dose lowering technique was utilized adhering to the principles of ALARA. COMPARISON: 03/18/2024 FINDINGS: Brain: No intracranial hemorrhage, mass-effect, or cerebral edema. Atrophy and chronic microvascular ischemic changes. Ventricles: Unremarkable. Bones/joints: Unremarkable. No fracture. Soft tissues: Unremarkable. Sinuses: No acute sinusitis. Mastoid air cells: Unremarkable as visualized. IMPRESSION: 1. No acute intracranial abnormality. 2. Atrophy and chronic microvascular ischemic changes. Electronically signed by: Jorden Pérez MD 03/30/24 19:43 PM Discharge Plan Visit Data Chief Complaint: Illness Stated Complaint: CONFUSION ED Provider: Tara Acuña Discharge Problem: Confusion, Fatigue, Hallucinations Forms Stand Alone Forms: My Conjunct Prescriptions Prescriptions: No Action calcium carbonate [Calcium 600] 600 mg calcium (1,500 mg) tablet 600 mg PO DAILY aspirin 81 mg Tablet,Delayed Release (Dr/Ec) 81 mg PO QAM Qty: 30 0RF warfarin 2.5 mg Tablet 2.5 mg PO HS acetaminophen [Tylenol Extra Strength] 500 mg Tablet 500 mg PO Q4H PRN (Reason: Pain) ceftriaxone 1 gram Recon Soln 1 g IM QPM Rx Instructions: GIVEN BETWEEN 7PM-11PM albuterol sulfate 90 mcg/actuation Hfa Aerosol Inhaler 2 puff INHALATION Q6H PRN (Reason: Wheezing) metoprolol tartrate 25 mg tablet 25 mg PO BID Cran-Max 500 mg Capsule 1,000 mg PO HS Probiotic Gummy 2 tab PO QAM albuterol sulfate 2.5 mg /3 mL (0.083 %) solution for nebulization sertraline 100 mg tablet 100 mg PO DAILY amlodipine 2.5 mg tablet 2.5 mg PO DAILY lorazepam 0.5 mg tablet 0.5 mg PO BID PRN (Reason: Anxiety) Eliquis 2.5 mg tablet 2.5 mg PO BID melatonin 3 mg 3 mg PO HS PRN (Reason: Insomnia) Referrals Referrals: [facility],Personal Care [Primary Care Provider] -
[2024-03-30 18:39] LABS: Basophils # (auto) 0.06 K/uL (0.00-0.20); Eosinophils # (auto) 0.53 K/uL (0.00-0.50); Eosinophils % (auto) 8.5 %; Hematocrit (blood only) 44.1 % (37.0-47.0); Hemoglobin 14.3 g/dl (12.0-16.0); Immature Granulocytes # (auto) 0.02 K/uL (0.01-0.20); Immature Granulocytes % (auto) 0.3 %; Lymphocytes # (auto) 1.21 K/uL (1.20-3.40); Lymphocytes % (auto) 19.5 %; Mean Corpuscular Hemoglobin 30.4 pg (25.0-34.0); Mean Corpuscular Hgb Conc 32.4 g/dL (32.0-36.0); Mean Corpuscular Volume 93.6 fL (80.0-100.0); Mean Platelet Volume 10.8 fL (9.4-12.4); Monocytes # (auto) 0.68 K/uL (0.11-0.59); Neutrophils # (auto) 3.71 K/uL (1.40-6.50); Neutrophils % (auto) 59.7 %; Platelet Count 189 K/uL (130-400); RDW Coefficient of Variation 12.7 % (11.5-14.5); RDW Standard Deviation 43.4 fL (36.4-46.3); Red Blood Count 4.71 M/uL (4.20-5.40); White Blood Count 6.21 K/ul (4.8-10.8)
[2024-03-30 18:49] LABS: Partial Thromboplastin Time 27 Seconds (21-31); Prothrombin Time 10.7 Seconds (9.0-12.0)
[2024-03-30 18:57] LABS: Albumin Globulin Ratio 1.2 (0.9-2); BUN Creatinine Ratio 34.2 (10-20); Bilirubin,Total 1.2 mg/dl (0.2-1.0); Calcium 10.8 mg/dl (8.6-10.3); Creatinine Clr Calc Pharmacy 39.1 ml/min; Est GFR (African American) 76.9 ml/min; Est GFR (Non-African American) 66.4 ml/min; Globulin 3.4 gm/dl (2.5-4.0); Magnesium 1.8 mg/dl (1.7-2.4); Potassium 3.3 mmol/L (3.5-5.1); Total Protein 7.4 gm/dl (6.0-8.3)
[2024-03-30 19:02] LABS: Troponin I High Sensitivity 6.5 pg/ml (0-14)
[2024-03-30 19:11] LABS: Thyroid Stimulating Hormone 1.481 uIu/ml (0.300-4.500)
[2024-03-30] MEDS: SODIUM CHLORIDE 0.9% 1,000 ML IV SCH (19:24)
--- NOTE | 2024-03-30 19:44 | CT Scan Report ---
Exam(s): CT HEAD Without Contrast EXAM: CT Head Without Intravenous Contrast CLINICAL HISTORY: Reason for exam: ams. TECHNIQUE: Axial computed tomography images of the head/brain without intravenous contrast. CTDI is 37.19 mGy and DLP is 547.75 mGy-cm. Automated exposure control was utilized for the study. A dose lowering technique was utilized adhering to the principles of ALARA. COMPARISON: 03/18/2024 FINDINGS: Brain: No intracranial hemorrhage, mass-effect, or cerebral edema. Atrophy and chronic microvascular ischemic changes. Ventricles: Unremarkable. Bones/joints: Unremarkable. No fracture. Soft tissues: Unremarkable. Sinuses: No acute sinusitis. Mastoid air cells: Unremarkable as visualized. IMPRESSION: 1. No acute intracranial abnormality. 2. Atrophy and chronic microvascular ischemic changes. Electronically signed by: Jorden Pérez MD 03/30/24 19:43 PM
[2024-03-30 21:07] LABS: Appearance Urine Cloudy (Clear); Bacteria Urine Automated None Seen (None Seen); Bilirubin Urine Negative (Negative); Blood Urine Trace (Negative); Cast Urine Automated 0-2 /lpf (0-2); Color Urine Yellow; Epithelial Cell Urine Auto 0-2 /hpf (0-2); Glucose Urine UA Negative (Negative); Ketones Urine Negative (Negative); Leukocyte Esterase Urine Negative (Negative); Nitrite Urine Negative (Negative); Protein Urine 1+ (Negative); RBC Urine Automated 0-2 /hpf (0-2); Specific Gravity Urine 1.012 (1.000-1.030); Urobilinogen Urine Negative (Negative); WBC Urine Automated 0-5 /hpf (0-5)
[2024-03-30] MEDS: METOPROLOL TARTRATE 25 MG TAB PO STA (22:05)
--- NOTE | 2024-03-31 00:04 | History & Physical Report ---
Date of Service March 30, 2024 Assessment & Plan (1) Confusion: Plan: 88yo female with history of PAF, HTN and Depression presenting with two days of confusion, generalized weakness and decreased functional status. Patient with acute metabolic encephalopathy present on admission. Appears to be delirious at present with waxing and waning mental status and inattention. Etiology unclear. Labs are largely unremarkable. She denies urinary complaints - recent completed antibiotics for a UTI. UA does not suggest ongoing infection. Possibly secondary to elevation of blood pressure - hypertensive encephalopahty? Patient's BP > 200 on arrival. Per review of prior readings, is typically fairly well controlled -Observation to medical with telemetry -Frequent orientation, delirium prevention strategies -Check urine culture -Check ammonia level, Folate, B12 and ionized calcium -Control BP with PRN Clonidine 0.1mg po TID if BP > 180/110mmHg (2) Paroxysmal atrial fibrillation: Plan: Patient presently in SR. Anticoagulated on Eliquis - recently transitioned from Coumadin -Continue Metoprolol 25mg po BID -Continue Eliquis 2.5mg po BID -Patient is on ASA as well, unsure of indication? (3) Hypertension: Plan: Blood pressure elevated on arrival. Possibly contributing to patient's confusion -Continue home Metoprolol 25mg po BID -Continue Amlodipine 2.5mg po daily -Clonidine 0.1mg po TID as needed for BP > 180/110 (4) Major depressive disorder: Plan: Chronic. Stable -Continue Sertraline 100mg po daily History of Present Illness Chief Complaint: confusion Primary Care Provider: [facility] Roel Pinto is a pleasant 88yo female with history of PAF, HTN and recent cysti tis s/p course of Cefdinir for Klebsiella UTI (dx 03/18 - completed antibiotics on 03/24/24) presenting from [facility] with concern for confusion. Patient by report is fairly independent at baseline. She is able to feed herself, dress and undress herself. No report of dementia or confusion. However, over the last two day she has had worsening confusion, possible hallucinations. She has been calling out to her and unable to ambulate, feed herself or dress/undress herself. This is a fairly acute mold changer the last several days. Patient does not know why she is in the hospital. She has no acute complaints at the moment. She comments on chronic intermittent diarrhea as well as some intermittent abdominal pain but now does not have either. No report of fever, chills, sweats or rigors. No chest pain, cough or SOB. No abdominal pain, nausea, vomiting, diarrhea or constipation. No dysuria or pelvic complaints. In the ER she is afebrile, hypertensive Recently changed from Coumadin to Eliquis for her PAF anticoagulation/stroke prevention Allergies Allergy/AdvReac Type Severity Reaction Status Date / Time ciprofloxacin [Cipro] AdvReac Severe nausea,head Verified 11/06/23 15:01 ache,diarrh ea cefuroxime AdvReac Intermediate nausea,head Verified 11/06/23 15:01 ache,diarrh ea cephalexin AdvReac Intermediate nausea,head Verified 11/06/23 15:01 ache,diarrh ea Penicillins AdvReac Intermediate nausea,head Verified 11/06/23 15:01 ache,diarrh ea Home Medications Medication Instructions Recorded Confirmed Type calcium carbonate (Calcium 600) 600 mg PO DAILY 12/03/21 03/30/24 History aspirin 81 mg tablet,delayed 81 mg PO QAM #30 tabs 12/01/22 03/30/24 Rx release Probiotic Gummy 2 tab PO QAM 11/06/23 03/30/24 History acetaminophen 500 mg tablet 500 mg PO Q4H PRN Pain 11/06/23 11/06/23 History (Tylenol Extra Strength) albuterol sulfate 90 mcg/actuation 2 puff inhalation Q6H PRN Wheezing 11/06/23 03/30/24 History aerosol inhaler ceftriaxone 1 gram solution for 1 g IM QPM 11/06/23 11/06/23 History injection cranberry fruit concentrate 500 mg 1,000 mg PO HS 11/06/23 03/30/24 History capsule (Cran-Max) metoprolol tartrate 25 mg tablet 25 mg PO BID 11/06/23 03/30/24 History warfarin 2.5 mg tablet 2.5 mg PO HS 11/06/23 11/06/23 History albuterol sulfate 2.5 mg/3 mL mg 03/30/24 History (0.083 %) solution for nebulization amlodipine 2.5 mg tablet 2.5 mg PO DAILY 03/30/24 03/30/24 History apixaban 2.5 mg tablet (Eliquis) 2.5 mg PO BID 03/30/24 03/30/24 History lorazepam 0.5 mg tablet 0.5 mg PO BID PRN Anxiety 03/30/24 03/30/24 History melatonin 3 mg PO HS PRN Insomnia 03/30/24 03/30/24 History sertraline 100 mg tablet 100 mg PO DAILY 03/30/24 03/30/24 History Past Med/Surg History Medical History (Updated 03/31/24 @ 02:53 by Selena Kline DO) Hypertension Hypoxia Frequent UTI Other polyosteoarthritis Bronchiectasis Fall Acute upper respiratory infection, unspecified Other specified dermatitis Tinea corporis Major depressive disorder Paroxysmal atrial fibrillation Acute cystitis with hematuria Urge incontinence Lung infection Family History Mother Hypertension Social History Smoking Status: Never smoker Second Hand Exposure: No; Do You Dip or Chew Tobacco: No; Hx Alcohol Use: No Hx Substance Use: No Preferred Language: Japanese Communication Ability: Effective Learning Designer Required: No Beliefs That Will Affect Care: None marital status: Current Living Situation: Alone Current Living Situation Comment: [facility] current occupational status: retired Feels Safe at Home: Yes Diet: regular Assistive Devices: Walker Review of Systems Review of Systems: All systems reviewed & are unremarkable except as noted in HPI & below Physical Exam Physical Exam: General: frail, elderly female patient resting comfortably, NAD, non-toxic in appearance,oriented to self and hospital. Inattentive and easily distractible. Picking at blankets at times during interv iew. Skin: warm, dry, intact, no rashes or lesions HEENT: NC/AT, PERRL, EOMI, anicteric sclera, conjunctiva without injection, external ear normal to inspection and nontender, nares patent, moist mucus membranes, dentition intact, no oropharyngeal lesions, neck supple, trachea midline, no LAD, no thyromegaly, no JVD Heart: +S1/S2, regular with ectopy, no m/r/g Lungs: equal air entry bilaterally, faint crackles in bilateral bases, no rhonchi or wheeze Abd: +BS, soft, NT/ND, no masses/organomegaly/ascites, PureWick catheter in place Ext: warm, 2+ pulses in UE/LE bilaterally, no clubbing/cyanosis or edema Neuro: nonfocal, patient AA&O x 2, speech intact, no facial droop, moving all extremities on command with equal strength 5/5, inattentive Results & Data Results & Data Vital Signs (Past 12 Hours) Vital Signs Pulse Resp BP Pulse Ox O2 Del Method 03/30/24 23:40 61 18 90 03/30/24 23:31 66 24 94 03/30/24 23:31 194/103 H 03/30/24 23:30 68 19 92 03/30/24 23:20 68 24 03/30/24 23:10 64 27 H 90 03/30/24 23:00 67 24 92 03/30/24 22:50 66 17 91 03/30/24 22:40 66 16 03/30/24 22:31 178/125 H 03/30/24 22:31 70 18 03/30/24 22:30 68 24 92 03/30/24 22:20 70 91 03/30/24 22:10 69 23 92 03/30/24 22:01 183/93 H 03/30/24 22:01 67 16 03/30/24 22:00 70 03/30/24 21:50 67 22 03/30/24 21:40 68 16 91 03/30/24 21:30 193/84 H 03/30/24 21:30 66 15 90 03/30/24 21:26 69 03/30/24 21:25 79 28 H 93 03/30/24 21:20 68 26 H 03/30/24 21:10 71 20 95 03/30/24 21:00 63 17 90 03/30/24 20:50 68 16 03/30/24 20:40 68 21 03/30/24 20:31 194/141 H 03/30/24 20:31 68 16 03/30/24 20:30 72 23 03/30/24 20:20 66 22 03/30/24 20:10 65 21 03/30/24 20:01 185/93 H 03/30/24 20:01 70 23 03/30/24 20:00 64 20 03/30/24 19:50 67 19 03/30/24 19:40 67 20 03/30/24 19:36 182/97 H 03/30/24 19:36 67 29 H 90 03/30/24 19:20 90 27 H 90 03/30/24 19:16 73 27 H 03/30/24 18:30 207/91 H 03/30/24 18:30 60 21 90 03/30/24 18:20 62 23 91 03/30/24 18:10 63 27 H 92 03/30/24 18:00 190/110 H 03/30/24 18:00 62 27 H 92 03/30/24 17:32 59 L 03/30/24 17:22 67 18 94 Room Air 03/30/24 17:22 94 Room Air 03/30/24 17:01 61 18 190/110 H 93 Room Air Laboratory Results Laboratory Results WBC 6.21 K/ul (4.8-10.8) 03/30/24 17:19 RBC 4.71 M/uL (4.20-5.40) 03/30/24 17:19 Hgb 14.3 g/dl (12.0-16.0) 03/30/24 17:19 Hct 44.1 % (37.0-47.0) 03/30/24 17:19 MCV 93.6 fL (80.0-100.0) 03/30/24 17:19 MCH 30.4 pg (25.0-34.0) 03/30/24 17:19 MCHC 32.4 g/dL (32.0-36.0) 03/30/24 17:19 RDW Std Deviation 43.4 fL (36.4-46.3) 03/30/24 17:19 RDW Coeff of Rachel 12.7 % (11.5-14.5) 03/30/24 17:19 Plt Count 189 K/uL (130-400) 03/30/24 17:19 MPV 10.8 fL (9.4-12.4) 03/30/24 17:19 Immature Gran % (Auto) 0.3 % 03/30/24 17:19 Neut % (Auto) 59.7 % 03/30/24 17:19 Lymph % (Auto) 19.5 % 03/30/24 17:19 [place] % (Auto) 11.0 % 03/30/24 17:19 Eos % (Auto) 8.5 % 03/30/24 17:19 Baso % (Auto) 1.0 % 03/30/24 17:19 Neut # (Auto) 3.71 K/uL (1.40-6.50) 03/30/24 17:19 Lymph # (Auto) 1.21 K/uL (1.20-3.40) 03/30/24 17:19 [place] # (Auto) 0.68 K/uL (0.11-0.59) H 03/30/24 17:19 Eos # (Auto) 0.53 K/uL (0.00-0.50) H 03/30/24 17:19 Baso # (Auto) 0.06 K/uL (0.00-0.20) 03/30/24 17:19 Immature Gran # (Auto) 0.02 K/uL (0.01-0.20) 03/30/24 17:19 PT 10.7 Seconds (9.0-12.0) 03/30/24 17:19 INR 1.0 (0.9-1.1) 03/30/24 17:19 APTT 27 Seconds (21-31) 03/30/24 17:19 PTT Ratio 1.0 03/30/24 17:19 Sodium 140 mmol/L (136-145) 03/30/24 17:19 Potassium 3.3 mmol/L (3.5-5.1) L 03/30/24 17:19 Chloride 103 mmol/L (98-107) 03/30/24 17:19 Carbon Dioxide 28 mmol/L (21-32) 03/30/24 17:19 Anion Gap 9 (3-11) 03/30/24 17:19 BUN 27 mg/dl (6-23) H 03/30/24 17:19 Creatinine 0.79 mg/dl (0.6-1.2) 03/30/24 17:19 Est Cr Clr Drug Dosing 39.1 ml/min 03/30/24 17:19 Est GFR ( Amer) 76.9 ml/min 03/30/24 17:19 Est GFR (Non-Af Amer) 66.4 ml/min 03/30/24 17:19 BUN/Creatinine Ratio 34.2 (10-20) H 03/30/24 17:19 Glucose 85 mg/dl (70-99(Fasting)) 03/30/24 17:19 Calcium 10.8 mg/dl (8.6-10.3) H 03/30/24 17:19 Magnesium 1.8 mg/dl (1.7-2.4) 03/30/24 17:19 Total Bilirubin 1.2 mg/dl (0.2-1.0) H 03/30/24 17:19 AST 13 U/L (13-39) 03/30/24 17:19 ALT 8 U/L (7-52) 03/30/24 17:19 Alkaline Phosphatase 75 U/L (34-104) 03/30/24 17:19 Troponin I High Sens 6.5 pg/ml (0-14) 03/30/24 17:19 Total Protein 7.4 gm/dl (6.0-8.3) 03/30/24 17:19 Albumin 4.0 gm/dl (3.4-5.0) 03/30/24 17:19 Globulin 3.4 gm/dl (2.5-4.0) 03/30/24 17:19 Albumin/Globulin Ratio 1.2 (0.9-2) 03/30/24 17:19 TSH 1.481 uIu/ml (0.300-4.500) 03/30/24 17:19 Urine Color Yellow 03/30/24 20:19 Urine Appearance Cloudy (Clear) A 03/30/24 20:19 Urine pH 7.0 (4.5-7.5) 03/30/24 20:19 Ur Specific [place] 1.012 (1.000-1.030) 03/30/24 20:19 Urine Protein 1+ (Negative) H 03/30/24 20:19 Urine Glucose (UA) Negative (Negative) 03/30/24 20:19 Urine Ketones Negative (Negative) 03/30/24 20:19 Urine Blood Trace (Negative) H 03/30/24 20:19 Urine Nitrite Negative (Negative) 03/30/24 20:19 Urine Bilirubin Negative (Negative) 03/30/24 20:19 Urine Urobilinogen Negative (Negative) 03/30/24 20:19 Ur Leukocyte Esterase Negative (Negative) 03/30/24 20:19 Urine WBC (Auto) 0-5 /hpf (0-5) 03/30/24 20:19 Urine RBC (Auto) 0-2 /hpf (0-2) 03/30/24 20:19 U Hyaline Cast (Auto) 0-2 /lpf (0-2) 03/30/24 20:19 U Epithel Cells (Auto) 0-2 /hpf (0-2) 03/30/24 20:19 Urine Bacteria (Auto) None Seen (None Seen) 03/30/24 20:19 Impressions Chest X-Ray 03/30/24 17:14 XR chest 1V not portable HISTORY: Weakness COMPARISON: Chest 03/18/2024. FINDINGS: No pneumothorax. No pleural effusions. S-shaped scoliosis again noted. There are old, healed right-sided rib fractures. Stable focal irregular density within the right upper lobe. No new focal lung consolidations to suggest a pneumonia. No evidence for pulmonary edema. The heart remains mildly enlarged. Left basilar linear densities favor subsegmental atelectasis. Emphysema again noted. IMPRESSION: No significant change compared to the prior study. No acute process. ACT 112: Negative or not required by law. Electronically signed by: Willy Warren M.D. 03/30/2024 5:[address] 03/30/24 18:31 Exam(s): CT HEAD Without Contrast EXAM: CT Head Without Intravenous Contrast CLINICAL HISTORY: Reason for exam: ams. TECHNIQUE: Axial computed tomography images of the head/brain without intravenous contrast. CTDI is 37.19 mGy and DLP is 547.75 mGy-cm. Automated exposure control was utilized for the study. A dose lowering technique was utilized adhering to the principles of ALARA. COMPARISON: 03/18/2024 FINDINGS: Brain: No intracranial hemorrhage, mass-effect, or cerebral edema. Atrophy and chronic microvascular ischemic changes. Ventricles: Unremarkable. Bones/joints: Unremarkable. No fracture. Soft tissues: Unremarkable. Sinuses: No acute sinusitis. Mastoid air cells: Unremarkable as visualized. IMPRESSION: 1. No acute intracranial abnormality. 2. Atrophy and chronic microvascular ischemic changes. Electronically signed by: Jorden Pérez MD 03/30/24 19:43 PM ECG Additional Comments: EKG with SR at 61bpm with PACs, no acute ischemic changes PG Care Time/CCT Total # of Minutes Spent Total Time Spent with Patient: Total time spent is greater than 50% in coordination of care (as documented) at patient's floor/unit and/or counseling patient: Coding Level of Care Code 93299 INT INP/OBS CARE Diagnoses Confusion R41.0 Paroxysmal atrial fibrillation I48.0 Hypertension I10 Major depressive disorder F32.9
[2024-03-31] MEDS: cloNIDine HCL 0.1 MG TAB PO ONE (00:57)
[2024-03-31] MEDS ORDERED: ALBUTEROL HFA 8 GM INHALER INH PRN (02:42)
[2024-03-31] MEDS ORDERED: cloNIDine HCL 0.1 MG TAB PO PRN (02:42)
[2024-03-31] MEDS ORDERED: ACETAMINOPHEN 325 MG TAB PO PRN (02:42)
[2024-03-31] MEDS ORDERED: DOCUSATE SODIUM 100 MG CAP PO PRN (02:42)
[2024-03-31] MEDS ORDERED: POLYETHYLENE (MIRALAX) 17 GM PACK PO PRN (02:42)
[2024-03-31] MEDS ORDERED: ONDANSETRON INJ 2 MG/ML 2 ML VIAL IV PRN ×2 (02:42)
[2024-03-31 03:26] LABS: Phosphorus 3.1 mg/dl (2.5-4.9)
[2024-03-31] MEDS: POTASSIUM CHLORIDE 10 MEQ TABCR PO STA (03:58)
[2024-03-31 07:35] LABS: Hematocrit (blood only) 42.8 % (37.0-47.0); Hemoglobin 13.7 g/dl (12.0-16.0); Mean Corpuscular Hemoglobin 29.8 pg (25.0-34.0); Mean Platelet Volume 10.1 fL (9.4-12.4); Platelet Count 164 K/uL (130-400); RDW Coefficient of Variation 12.6 % (11.5-14.5); RDW Standard Deviation 42.7 fL (36.4-46.3); White Blood Count 5.95 K/ul (4.8-10.8)
[2024-03-31 07:46] LABS: Albumin Level 3.6 gm/dl (3.4-5.0); Bilirubin Direct 0.2 mg/dl (0-0.2); Bilirubin,Total 1.6 mg/dl (0.2-1.0); Calcium 9.3 mg/dl (8.6-10.3); Creatinine Clr Calc Pharmacy 38.6 ml/min; Est GFR (African American) 86.1 ml/min; Est GFR (Non-African American) 74.3 ml/min; Potassium 3.2 mmol/L (3.5-5.1); Total Protein 6.3 gm/dl (6.0-8.3)
[2024-03-31] MEDS: ASPIRIN 81 MG ECTAB PO SCH (08:23)
[2024-03-31] MEDS: amLODIPine BESYLATE 5 MG TAB PO SCH (08:23)
[2024-03-31] MEDS: APIXABAN 2.5 MG TAB PO SCH (08:23)
[2024-03-31] MEDS: METOPROLOL TARTRATE 25 MG TAB PO SCH (08:23)
[2024-03-31] MEDS: SERTRALINE HCL 100 MG TABLET PO SCH (08:23)
[2024-03-31 08:26] LABS: Folate (Folic Acid),Ser orPlas 14.12 ng/ml (>5.38)
[2024-03-31] MEDS: POTASSIUM CHLORIDE CRTAB 20 MEQ TABCR PO STA (09:26)
[2024-03-31 11:11] LABS: Appearance Urine Clear (Clear); Bacteria Urine Automated None Seen (None Seen); Bilirubin Urine Negative (Negative); Blood Urine Trace (Negative); Cast Urine Automated 0-2 /lpf (0-2); Color Urine Yellow; Epithelial Cell Urine Auto 0-2 /hpf (0-2); Glucose Urine UA Negative (Negative); Ketones Urine Negative (Negative); Leukocyte Esterase Urine Negative (Negative); Nitrite Urine Negative (Negative); Protein Urine 2+ (Negative); Specific Gravity Urine 1.013 (1.000-1.030); Urobilinogen Urine Negative (Negative); WBC Urine Automated 0-5 /hpf (0-5)
[2024-03-31 11:44] LABS: Adenovirus PCR Not Detected (NotDetected); Bordetella parapertussis PCR Not Detected (NotDetected); Bordetella pertussis PCR Not Detected (NotDetected); Chlamydia pneumoniae PCR Not Detected (NotDetected); Coronavirus 229E PCR Not Detected (NotDetected); Coronavirus CoV-2 (COVID19)PCR Not Detected (NotDetected); Coronavirus HKU1 PCR Not Detected (NotDetected); Coronavirus NL63 PCR Not Detected (NotDetected); Coronavirus OC43PCR Not Detected (NotDetected); Human Metapneumovirus PCR Not Detected (NotDetected); Influenza A PCR Not Detected (NotDetected); Influenza B PCR Not Detected (NotDetected); Mycoplasma pneumoniae PCR Not Detected (NotDetected); Parainfluenza Virus 1 PCR Not Detected (NotDetected); Parainfluenza Virus 2 PCR Not Detected (NotDetected); Parainfluenza Virus 3 PCR Not Detected (NotDetected); Parainfluenza Virus 4 PCR Not Detected (NotDetected); Respiratory Syncytial VirusPCR Not Detected (NotDetected); Rhinovirus/Enterovirus PCR Not Detected (NotDetected)
[2024-03-31] MEDS ORDERED: MoRPHine SULFATE 2 MG/ML CARP IV PRN ×2 (16:44→18:51)
--- NOTE | 2024-03-31 16:48 | Hospitalist Progress Note ---
Date of Service March 31, 2024 Assessment & Plan (1) Acute encephalopathy: Plan: Pt is a 88yo female with history of PAF on Eliquis, HTN and Depression p/w two days of confusion, generalized weakness and decreased functional status. SYmptoms really going on for about 2 weeks but much worse in last 2 days. Continues to be delirious at present with waxing and waning mental status and inattention. Etiology unclear--> Labs are largely unremarkable except mildly elevated TBili. She denies urinary complaints - recent completed antibiotics for a UTI. UA does not suggest ongoing infection, and repeat UA with cath sample on 03/31 also unremarkable Viral respiratory BioFire negative, Lyme negative, NH3 level normal, B12 mildly low No fever here Hypertensive encephalopathy? Patient's BP > [address] head negative for acute Checked CT C/A/P given previous chest abnormalities with multiple pulm nodules and abdominal tenderness on exam--> new RUL pneumonitis, otherwise nothing abnormal in abdomen that is acute Also, review of [facility] website shows recent Rx for lorazepam bid which appears to be a new medication for her in the last week Check B1 level and start empiric thiamine in AM Check blood cultures although no fevers noted yet Start empiric abx for PNA with ertapenem and azithro, check procalcitonin Frequent orientation, delirium prevention strategies HOLD ativan from home Improve BP control Appears dry on exam and not really eating/drinking much-start LR IVFs at 80mL/hr x 2L Follow CBC, CMP in AM Consider brain MRI but would not likely be able to lie still for this at this time (2) Pneumonia: Plan: RUL possible pneumonitis seen on CT CHest Given allergies, start ertapenem and azithro check procal, blood cxs Chest CT highly abnormal but 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 morphine prn pain Follow LFTs, CBC (4) Paroxysmal atrial fibrillation: Plan: Is in NSR, but having frequent PAT and possibly short paroxysms of Aflutter. Anticoagulated on Eliquis - recently transitioned from Coumadin Continue Metoprolol 25mg po BID Continue Eliquis 2.5mg po BID Patient is on ASA as well, unsure of indication? (5) Hypertension: Plan: Blood pressure elevated on arrival. Possibly contributing to patient's confusion Continue home Metoprolol 25mg po BID Increase Amlodipine to 5mg po daily dc prn clonidine to avoid rebound HTN and add IV hydralazine x 1 (6) Major depressive disorder: Plan: Chronic. Stable Continue Sertraline 100mg po daily (7) Pulmonary nodule: Plan: noted on CT chest, likely due to previous MAC but also with new RUL nodules could be new infection (8) B12 deficiency: Plan: B12 level mildly low at 205 start IM B12 1000 x 3 days and then po Plan DVT proph-Eliquis Dispo-continued stay Discussed care with daughter on phone on two occasions on 03/31. Daughter reports if pt's condition declines, would not escalate care and would discuss pursuing comfort measures at that time Admission and Anticipated Discharge Date Admission Date: March 30, 2024 Subjective Pt profoundly confused, tachypneic in bed, would not answer my questions, sometimes mumbling gibberish. Writhing around at times and grimacing with pain it seemed. Her daughter reports she is progressively worsening with her mentation over the last 2 weeks or so and was treated for a UTI 2 weeks ago. SHe sometimes has reactions to antibiotics, but mostly GI-related reactions. Typically, her mother can have a conversation and answer questions appropriately. Daughter reports that patient prefers a palliative approach to care and no escalation of care if her condition continues to decline. She is ok with giving IV morphine if pt appears uncomfortable. Tele with sinus rhythm, frequent runs of PAT, some possible Aflutter short runs Physical Exam Constitutional: + ill appearing and + underweight Eyes: PERRL and EOM intact bilaterally ENMT: tongue and mouth dry Respiratory: + tachypneic Auscultation: + diminish ed lung sounds (at bases); no crackles, no rhonchi and no wheezes Cardiovascular: Rate/Rhythm: regular rate and regular rhythm Heart Sounds: no murmur Extremities: no edema Gastrointestinal (Abdomen): Inspection/Auscultation: normal bowel sounds; + abdomen abnormal to inspection (right mid abdomen with bulging) and abdomen not distended Percussion/Palpation: + abdomen tender (in right mid-abdomen,no guarding but grimaced on exam) and abdomen soft Neurologic: CN's II-XI intact bilaterally, moves all extremities, awake and + confused Psychiatric: Orientation: alert; + not oriented x 3 Genitourinary: Vázquez catheter in place Results & Data Results & Data Vital Signs (Past 12 Hours) Vital Signs Temp Pulse Pulse Resp BP BP Pulse Ox 03/31/24 16:24 36.8 C 109 H 18 221/115 H 90 03/31/24 16:13 67 03/31/24 11:42 36.8 C 84 18 160/88 H 92 03/31/24 09:11 03/31/24 09:10 59 L 03/31/24 08:14 36.9 C 69 17 188/92 H 91 O2 Del Method 03/31/24 16:24 Room Air 03/31/24 16:13 03/31/24 11:42 Room Air 03/31/24 09:11 Room Air 03/31/24 09:10 03/31/24 08:14 Room Air Laboratory Results CBC, CMP, NH3, UA, BioFire, Lyme titer reviewed PG Care Time/CCT Total # of Minutes Spent Total Time Spent with Patient: Total time spent is greater than 50% in coordination of care (as documented) at patient's floor/unit and/or counseling patient: Coding Level of Care Code 25658 SUB INP/OBS CARE 3/50MIN Diagnoses Acute encephalopathy G93.40 Pneumonia J18.9 Abdominal pain R10.9 Paroxysmal atrial fibrillation I48.0 Hypertension I10 Major depressive disorder F32.9 Pulmonary nodule R91.1 B12 deficiency E53.8
[2024-03-31] MEDS: hydrALAZINE HCL 20 MG/ML VIAL IV ONE (16:57)
[2024-03-31] MEDS: MoRPHine SULFATE 2 MG/ML CARP IV STA (16:58)
[2024-03-31] MEDS: OPTIRAY 320 100ml IV ONE (17:06)
[2024-03-31] MEDS: LACTATED RINGER'S 1,000 ML IV SCH (17:27)
--- NOTE | 2024-03-31 17:28 | CT Scan Report ---
CT abd pelvis IV con only CLINICAL HISTORY: abdominal pain,ventral hernia TECHNIQUE: Helical axial images of the abdomen and pelvis were obtained and displayed. Automated dose lowering techniques and/or adjustment according to patient size were utilized for this exam. This e xam was performed with intravenous contrast. COMPARISON: Comparison is made to CT abdomen pelvis 01/07/2023 FINDINGS: Lower chest: For findings above the diaphragm, please see CT chest performed same day. Liver: Unremarkable. No focal lesions are seen. Gallbladder and biliary tree: No calcified gallstones. Normal caliber wall. No intra- or extrahepatic biliary ductal dilation. Pancreas: Unremarkable, no focal lesions. Spleen: Unremarkable. Adrenals: Unremarkable. Kidneys and ureters: Renal cysts are seen. Bladder: Vázquez catheter is seen. Reproductive organs: Metallic device is noted in the uterus, similar to prior exam, possibly represen ting a variant intrauterine device. Bowel: The appendix is unremarkable. Lymph nodes Retroperitoneal: Unremarkable. Pelvic: Unremarkable. Mesenteric: Unremarkable. Peritoneum: Normal. Vessels: Degenerative Abdominal wall: Unremarkable. Bones: Old healed rib fractures are seen. Degenerative changes are seen in the spine. IMPRESSION: No acute abnormality is seen to span abdominal pain. ACT 112: Negative or not required by law. Electronically signed by: Luis Aranda M.D. 03/31/2024 5:26 PM
--- NOTE | 2024-03-31 17:37 | CT Scan Report ---
CT chest diagnostic w con CLINICAL HISTORY: f/u pulmonary nodules TECHNIQUE: Multidetector row helical CT of the chest was performed with intravenous contrast. Coronal and sagittal reformations were obtained. Automated dose lowering techniques and/or adjustment accord ing to patient size were utilized for this exam. CT DOSE: 784.4 mGy.cm Comparison: Comparison is made to CT chest 11/06/2023 FINDINGS: Lungs and pleura: Bronchial wall thickening is seen. There is mild emphysema. There is a 4 mm nodule in the right lower lobe (series 6 image 161), 3 mm nodule in the left apex (image 36), 6 mm nodule in the left lower lobe (image 147). And additional scattered smaller nodules which are unchanged from p rior exam.. Regional pulmonary nodularity is seen in the right upper lobe which may be infectious/inf lammatory in origin. Focal scarring in the right upper lobe is unchanged. Heart and pericardium: Cardiomegaly is seen with biatrial enlargement. Vessels: Unremarkable. Mediastinum and suzanna: Unremarkable. Chest wall and lower neck: Small thyroid nodules are noted which do not require follow-up by ACR debi schneider. Abdomen: Unremarkable. Bones: Degenerative changes in the thoracic spine. Subacute to chronic right rib fractures. IMPRESSION: Interval development of right upper lobe nodules which may represent infectious/inflammatory process. Additional nodules are stable. Bronchial wall thickening compatible with infectious/inflammatory air ways disease. ACT 112: Negative or not required by law. Electronically signed by: Luis Aranda M.D. 03/31/2024 5:35 PM
[2024-03-31] MEDS: amLODIPine BESYLATE 5 MG TAB PO ONE (17:54)
[2024-03-31] MEDS: ERTAPENEM SODIUM 1,000 MG in SYRINGE 0 ML IV SCH (20:11)
[2024-03-31] MEDS: AZITHROMYCIN 500 MG in DEXTROSE 5% 250 ML IV ONE (20:11)
[2024-04-01 02:18] LABS: Cdiff Antigen Positive; Cdiff Toxin B Gene (2yr or >) Positive Cdiff Gene (Neg)
[2024-04-01 02:21] LABS: Cdiff Toxin A+B Positive Cdiff Toxin (Negative)
--- NOTE | 2024-04-01 03:18 | Communication Note ---
Date of Service: April 01, 2024 I was notified by nursing that the patient had several episodes of loose stool with foul smell, I ordered a c.diff stool test. 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 I have placed orders to begin PO vancomycin treatment, she may require a longer taper with her treatment considering her prior episodes of c.diff.
[2024-04-01] MEDS: CHERRY SYRUP 5 ML UDP PO SCH (05:12)
[2024-04-01] MEDS: VANCOMYCIN HCL 125 MG/2.5ML SOLN PO SCH (05:13)
[2024-04-01 06:57] LABS: Basophils # (auto) 0.04 K/uL (0.00-0.20); Basophils % (auto) 0.5 %; Eosinophils # (auto) 0.04 K/uL (0.00-0.50); Eosinophils % (auto) 0.5 %; Hematocrit (blood only) 40.2 % (37.0-47.0); Hemoglobin 13.2 g/dl (12.0-16.0); Immature Granulocytes # (auto) 0.04 K/uL (0.01-0.20); Immature Granulocytes % (auto) 0.5 %; Lymphocytes # (auto) 0.66 K/uL (1.20-3.40); Lymphocytes % (auto) 7.5 %; Mean Corpuscular Hemoglobin 29.9 pg (25.0-34.0); Mean Corpuscular Hgb Conc 32.8 g/dL (32.0-36.0); Mean Platelet Volume 10.1 fL (9.4-12.4); Monocytes # (auto) 0.79 K/uL (0.11-0.59); Neutrophils # (auto) 7.22 K/uL (1.40-6.50); Platelet Count 158 K/uL (130-400); RDW Coefficient of Variation 12.6 % (11.5-14.5); RDW Standard Deviation 41.8 fL (36.4-46.3); Red Blood Count 4.42 M/uL (4.20-5.40); White Blood Count 8.79 K/ul (4.8-10.8)
[2024-04-01 07:21] LABS: Albumin Globulin Ratio 1.2 (0.9-2); Albumin Level 3.4 gm/dl (3.4-5.0); BUN Creatinine Ratio 24.5 (10-20); Calcium 9.6 mg/dl (8.6-10.3); Creatinine Clr Calc Pharmacy 29.6 ml/min; Est GFR (African American) 62.3 ml/min; Est GFR (Non-African American) 53.8 ml/min; Globulin 2.8 gm/dl (2.5-4.0); Potassium 3.2 mmol/L (3.5-5.1); Total Protein 6.2 gm/dl (6.0-8.3)
[2024-04-01 08:35] LABS: Magnesium 1.5 mg/dl (1.7-2.4)
[2024-04-01] MEDS: amLODIPine BESYLATE 5 MG TAB PO SCH (09:26)
[2024-04-01] MEDS: diphenhydrAMINE 50 MG/ML VIAL IV STA (10:12)
[2024-04-01] MEDS: THIAMINE HCL 200 MG in SODIUM CHLORIDE 0.9% 50 ML IV SCH (10:14)
[2024-04-01] MEDS: CYANOCOBALAMIN 1000 MCG/ML VIAL IM SCH (10:16)
[2024-04-01] MEDS: AZITHROMYCIN 250 MG in DEXTROSE 5% 250 ML IV SCH (17:55)
--- NOTE | 2024-04-01 19:37 | Hospitalist Progress Note ---
Date of Service April 01, 2024 Assessment & Plan (1) Acute encephalopathy: Plan: Pt is a 88yo female with history of PAF on Eliquis, HTN and Depression p/w two days of confusion, generalized weakness and decreased functional status. SYmptoms really going on for about 2 weeks but much worse in last 2 days. Continues to be delirious at present with waxing and waning mental status and inattention. Etiology unclear--> Labs are largely unremarkable except mildly elevated TBili. She denies urinary complaints - recent completed antibiotics for a UTI. UA does not suggest ongoing infection, and repeat UA with cath sample on 03/31 also unremarkable Viral respiratory BioFire negative, Lyme negative, NH3 level normal, B12 mildly low No fever here Hypertensive encephalopathy? Patient's BP > [address] head negative for acute Checked CT C/A/P given previous chest abnormalities with multiple pulm nodules and abdominal tenderness on exam--> new RUL pneumonitis, otherwise nothing abnormal in abdomen that is acute Also, review of [facility] shows recent Rx for lorazepam bid which appears to be a new medication for her in the last week B1 level pending. Consider empiric thiamine in AM Check blood cultures although no fevers noted yet Start empiric abx for PNA with ertapenem and azithro -- Procal normal. Consider discontinuing antibiotics tomorrow, 04/02/2024 Frequent orientation, delirium prevention strategies HOLD ativan from home Improve BP control Consider brain MRI but would not likely be able to lie still for this at this time Morning of 04/01/2024, patient had episode of tachycardia, tachypnea, acute change in mental status, flushed appearance especially noted on her face, and shaking/rigors. -- Given IV Benadryl, with symptom resolution. Vital signs stable in afternoon. 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 morphine prn pain Follow LFTs, CBC (4) Paroxysmal atrial fibrillation: Plan: Is in NSR, but having frequent PAT and possibly short paroxysms of Aflutter. Anticoagulated on Eliquis - recently transitioned from Coumadin Continue Metoprolol 25mg po BID Continue Eliquis 2.5mg po BID Patient is on ASA as well, unsure of indication? (5) Hypertension: Plan: Blood pressure elevated on arrival. Possibly contributing to patient's confusion Continue home Metoprolol 25mg po BID Increase Amlodipine to 5mg po daily dc prn clonidine to avoid rebound HTN and add IV hydralazine x 1 (6) Major depressive disorder: Plan: Chronic. Stable Continue Sertraline 100mg po daily (7) Pulmonary nodule: Plan: noted on CT chest, likely due to previous MAC but also with new RUL nodules could be new infection (8) B12 deficiency: Plan: B12 level mildly low at 205 start IM B12 1000 x 3 days and then po Plan Ordered IV Benadryl x 1 Repleted potassium and magnesium Reviewed home meds and administered meds while hospitalized DVT proph-Eliquis CODE STATUS: DNR/DNI Admission and Anticipated Discharge Date Admission Date: March 30, 2024 Subjective Patient was tachycardic, tachypneic, had an acute change in mental status, flushed appearing most notable on her face, with shaking/rigors this morning. She was given IV Benadryl, and has remained stable since. This afternoon, patient was oriented to self and year. She denies any shortness of breath or pain. Physical Exam Physical Exam: General: frail, elderly female patient resting comfortably, NAD, non-toxic in appearance,oriented to self and hospital. Inattentive and easily distractible. Picking at blankets at times during interview. Skin: warm, dry, intact, no rashes or lesions HEENT: NC/AT, PERRL, EOMI, anicteric sclera, conjunctiva without injection, external ear normal to inspection and nontender, nares patent, moist mucus membranes, dentition intact, no oropharyngeal lesions, neck supple, trachea midline, no LAD, no thyromegaly, no JVD Heart: +S1/S2, regular with ectopy, no m/r/g Lungs: equal air entry bilaterally, faint crackles in bilateral bases, no rhonchi or wheeze Abd: +BS, soft, NT/ND, no masses/organomegaly/ascites, PureWick catheter in place Ext: warm, 2+ pulses in UE/LE bilaterally, no clubbing/cyanosis or edema Neuro: nonfocal, patient AA&O x 2, speech intact, no facial droop, moving all extremities on command with equal strength 5/5, inattentive Results & Data Results & Data Vital Signs (Past 12 Hours) Vital Signs Temp Pulse Pulse Resp BP Pulse Ox O2 Del Method 04/01/24 16:46 36.5 C 62 18 131/91 98 Nasal Cannula 04/01/24 11:50 36.4 C L 72 18 96/59 L 96 Nasal Cannula 04/01/24 11:15 Nasal Cannula 04/01/24 09:14 99 H 04/01/24 07:30 36.6 C 73 16 101/59 L 94 Nasal Cannula O2 Flow Rate 04/01/24 16:46 1 04/01/24 11:50 1 04/01/24 11:15 2 04/01/24 09:14 04/01/24 07:30 1 Laboratory Results Reviewed CBC Reviewed CMP Reviewed stool sample, positive for C. difficile PG Care Time/CCT Total # of Minutes Spent Total Time Spent with Patient: Total time spent is greater than 50% in coordination of care (as documented) at patient's floor/unit and/or counseling patient: Coding Level of Care Code 46320 SUB INP/OBS CARE 3/50MIN Diagnoses Acute encephalopathy G93.40 Pneumonia J18.9 Abdominal pain R10.9 Paroxysmal atrial fibrillation I48.0 Hypertension I10 Major depressive disorder F32.9 Pulmonary nodule R91.1 B12 deficiency E53.8
[2024-04-01] MEDS: MAGNESIUM SULFATE / D5W 1 GM/100 ML BAG IV SCH (20:06)
[2024-04-01] MEDS: POTASSIUM CHLORIDE / WTR 10 MEQ/100 ML PLCT IV SCH (20:06)
--- NOTE | 2024-04-02 05:50 | Electrocardiogram Report ---
Test Reason : Blood Pressure : / mmHG Vent. Rate : 061 BPM Atrial Rate : 061 BPM P-R Int : 114 ms QRS Dur : 084 ms QT Int : 438 ms P-R-T Axes : 062 015 044 degrees QTc Int : 440 ms Sinus rhythm with Premature atrial complexes Otherwise normal ECG When compared with ECG of 18-MAR-2024 09:44, Criteria for Septal infarct are no longer Present Confirmed by Lamonte Campbell ([id number]) on 04/02/2024 5:50:26 AM Referred By: Personal [facility] Confirmed By:Lamonte Campbell
[2024-04-02 07:02] LABS: Basophils # (auto) 0.05 K/uL (0.00-0.20); Basophils % (auto) 0.7 %; Eosinophils # (auto) 0.36 K/uL (0.00-0.50); Eosinophils % (auto) 5.2 %; Hematocrit (blood only) 38.1 % (37.0-47.0); Hemoglobin 12.3 g/dl (12.0-16.0); Immature Granulocytes # (auto) 0.03 K/uL (0.01-0.20); Immature Granulocytes % (auto) 0.4 %; Lymphocytes # (auto) 1.14 K/uL (1.20-3.40); Lymphocytes % (auto) 16.6 %; Mean Corpuscular Hemoglobin 30.2 pg (25.0-34.0); Mean Corpuscular Hgb Conc 32.3 g/dL (32.0-36.0); Mean Corpuscular Volume 93.6 fL (80.0-100.0); Mean Platelet Volume 10.9 fL (9.4-12.4); Monocytes % (auto) 10.2 %; Neutrophils % (auto) 66.9 %; Platelet Count 160 K/uL (130-400); RDW Coefficient of Variation 12.6 % (11.5-14.5); RDW Standard Deviation 43.2 fL (36.4-46.3); Red Blood Count 4.07 M/uL (4.20-5.40); White Blood Count 6.88 K/ul (4.8-10.8)
[2024-04-02 07:18] LABS: BUN Creatinine Ratio 34.9 (10-20); Calcium 9.5 mg/dl (8.6-10.3); Creatinine Clr Calc Pharmacy 32.7 ml/min; Est GFR (African American) 69.4 ml/min; Est GFR (Non-African American) 59.9 ml/min; Magnesium 1.7 mg/dl (1.7-2.4); Potassium 3.6 mmol/L (3.5-5.1)
--- NOTE | 2024-04-02 12:32 | Hospitalist Progress Note ---
Date of Service April 02, 2024 Assessment & Plan (1) Acute encephalopathy: Plan: - Presented with 3 days of confusion, generalized weakness, decreased functional status. Symptoms have been going on for about 2 weeks, but much worse in the 2 days leading to admission. Presented with waxing and waning mental status and inattention. - Patient recently completed antibiotic course for UTI. - On admission, viral respiratory BioFire negative, Lyme negative, NH3 level n ormal, B12 mildly low, afebrile. - B1 level pending. - Hypertensive encephalopathy? Patient's BP > 200 on arrival. - CT head negative for acute. - Checked CT C/A/P 03/31/24 given previous chest abnormalities with multiple pulm nodules and abdominal tenderness on exam. -- CT chest 03/31/2024 revealed RUL possible pneumonitis, otherwise nothing abnormal in abdomen that is acute. -- Patient tachypneic and borderline low O2, empirically started on ertapenem and azithromycin due to antibiotic allergies. -- Procal normal. Identified sources of infection as noted below. Ertapenem and azithromycin discontinued on 04/02/2024 - Also, review of [facility] website shows recent Rx for lorazepam bid which appears to be a new medication for her in the last week prior to admission. - Positive C. difficile 04/01/24. Continue oral vancomycin until 04/11/2024. - Blood cultures negative x 48 hours. - Morning of 04/01/2024, patient had episode of tachycardia, tachypnea, acute change in mental status, flushed appearance especially noted on her face, and shaking/rigors. -- Given IV Benadryl, with symptom resolution. Vital signs stable in afternoon. - Urine culture from 03/31/24 reveals Enterococcus faecium VRE, sensitive to daptomycin. Daptomycin started 04/02/24, last dose 04/12/24. (2) Paroxysmal atrial fibrillation: Plan: Is in NSR, but having frequent PAT and possibly short paroxysms of Aflutter. Anticoagulated on Eliquis - recently transitioned from Coumadin Continue Metoprolol 25mg po BID Continue Eliquis 2.5mg po BID Patient is on ASA as well, unsure of indication? (3) Hypertension: Plan: Blood pressure elevated on arrival. Possibly contributing to patient's confusion Continue home Metoprolol 25mg po BID Increase Amlodipine to 5mg po daily Discontinued prn clonidine to avoid rebound HTN and added IV hydralazine x 1 (4) Pulmonary nodule: Plan: noted on CT chest, likely due to previous MAC but also with new RUL nodules could be new infection (5) B12 deficiency: Plan: B12 level mildly low at 205 start IM B12 1000 x 3 days and then po (6) Major depressive disorder: Plan: Chronic. Stable Continue Sertraline 100mg po daily Plan E faecium VRE noted on urine culture today. Started daptomycin Discontinued ertapenem and azithromycin DVT proph-Eliquis CODE STATUS: DNR/DNI Admission and Anticipated Discharge Date Admission Date: April 02, 2024 Subjective Patient seen and evaluated at bedside. She appears better today compared to yesterday - responds appropriately in full sentences, no rigors. She does report that she feels "out of it." I explained that she has two infections currently: C. diff and E. faecium UTI, which require different antibiotics. She is understanding. Patient denies any focal complaints. Denies nausea, vomiting, abdominal pain, urinary symptoms, shortness of breath, difficulty breathing, or chest pain. Physical Exam Physical Exam: General: No acute distress, nondiaphoretic. Frail, elderly female. Skin: The skin was without rashes, erythema, edema, or bruising. Cardiac: Regular rate and rhythm without murmurs gallops or rubs. Pulm: Equal air entry bilaterally, faint crackles in bilateral bases, no rhonchi or wheezes. No respiratory distress. Abdominal: Positive bowel sounds x 4. Soft, nontender, without masses or organomegaly. No guarding or rebound tenderness. Neuro: A&O x3. No focal neurological deficits. Results & Data Results & Data Vital Signs (Past 12 Hours) Vital Signs Temp Pulse Pulse Resp BP Pulse Ox O2 Del Method 04/02/24 11:26 36.9 C 52 L 14 135/72 100 Nasal Cannula 04/02/24 10:26 68 04/02/24 09:37 Nasal Cannula 04/02/24 07:50 36.6 C 57 L 15 149/74 H 99 Nasal Cannula 04/02/24 04:35 36.3 C L 64 18 117/61 96 Nasal Cannula 04/02/24 03:35 66 O2 Flow Rate 04/02/24 11:26 3 04/02/24 10:26 04/02/24 09:37 04/02/24 07:50 3 04/02/24 04:35 2 04/02/24 03:35 Laboratory Results Reviewed CBC Reviewed chemistries Reviewed urine culture PG Care Time/CCT Total # of Minutes Spent Total Time Spent with Patient: Total time spent is greater than 50% in coordination of care (as documented) at patient's floor/unit and/or counseling patient: Coding Level of Care Code 25764 SUB INP/OBS CARE 3/50MIN Diagnoses Acute encephalopathy G93.40 Paroxysmal atrial fibrillation I48.0 Hypertension I10 Pulmonary nodule R91.1 B12 deficiency E53.8 Major depressive disorder F32.9
[2024-04-02] MEDS: DAPTOmycin 275 MG in SYRINGE 0 ML IV SCH (13:50)
[2024-04-03 06:22] LABS: Hematocrit (blood only) 44.2 % (37.0-47.0); Hemoglobin 14.3 g/dl (12.0-16.0); Mean Corpuscular Hemoglobin 30.3 pg (25.0-34.0); Mean Corpuscular Hgb Conc 32.4 g/dL (32.0-36.0); Mean Corpuscular Volume 93.6 fL (80.0-100.0); Mean Platelet Volume 10.6 fL (9.4-12.4); Platelet Count 169 K/uL (130-400); RDW Coefficient of Variation 12.4 % (11.5-14.5); RDW Standard Deviation 42.5 fL (36.4-46.3); Red Blood Count 4.72 M/uL (4.20-5.40); White Blood Count 7.65 K/ul (4.8-10.8)
[2024-04-03 06:55] LABS: Calcium 9.8 mg/dl (8.6-10.3); Creatinine Clr Calc Pharmacy 45.2 ml/min; Est GFR (African American) 93.2 ml/min; Est GFR (Non-African American) 80.4 ml/min; Magnesium 1.7 mg/dl (1.7-2.4); Potassium 3.4 mmol/L (3.5-5.1)
[2024-04-03] MEDS: POTASSIUM CHLORIDE CRTAB 20 MEQ TABCR PO STA (08:50)
--- NOTE | 2024-04-03 12:36 | Hospitalist Progress Note ---
Date of Service April 03, 2024 Assessment & Plan (1) Acute encephalopathy: Plan: - Presented with 3 days of confusion, generalized weakness, decreased functional status. Symptoms have been going on for about 2 weeks, but much worse in the 2 days leading to admission. Presented with waxing and waning mental status and inattention. - Patient recently completed antibiotic course for UTI. - On admission, viral respiratory BioFire negative, Lyme negative, NH3 level n ormal, B12 mildly low, afebrile. - B1 level pending. - Hypertensive encephalopathy? Patient's BP > 200 on arrival. - CT head negative for acute. - Checked CT C/A/P 03/31/24 given previous chest abnormalities with multiple pulm nodules and abdominal tenderness on exam. -- CT chest 03/31/2024 revealed RUL possible pneumonitis, otherwise nothing abnormal in abdomen that is acute. -- Patient tachypneic and borderline low O2, empirically started on ertapenem and azithromycin due to antibiotic allergies. -- Procal normal. Identified sources of infection as noted below. Ertapenem and azithromycin discontinued on 04/02/2024 - Also, review of [facility] website shows recent Rx for lorazepam bid which appears to be a new medication for her in the last week prior to admission. - Positive C. difficile 04/01/24. Continue oral vancomycin until 04/11/2024. - Blood cultures negative x 48 hours. - Morning of 04/01/2024, patient had episode of tachycardia, tachypnea, acute change in mental status, flushed appearance especially noted on her face, and shaking/rigors. -- Given IV Benadryl, with symptom resolution. Vital signs stable in afternoon. - Urine culture from 03/31/24 reveals Enterococcus faecium VRE, sensitive to daptomycin. Daptomycin started 04/02/24, last dose 04/12/24. (2) Paroxysmal atrial fibrillation: Plan: Is in NSR, but having frequent PAT and possibly short paroxysms of Aflutter. Anticoagulated on Eliquis - recently transitioned from Coumadin Continue Metoprolol 25mg po BID Continue Eliquis 2.5mg po BID Patient is on ASA as well, unsure of indication? (3) Hypertension: Plan: Blood pressure elevated on arrival. Possibly contributing to patient's confusion Continue home Metoprolol 25mg po BID Increase Amlodipine to 5mg po daily Discontinued prn clonidine to avoid rebound HTN and added IV hydralazine x 1 (4) Pulmonary nodule: Plan: noted on CT chest, likely due to previous MAC but also with new RUL nodules could be new infection (5) B12 deficiency: Plan: B12 level mildly low at 205 start IM B12 1000 x 3 days and then po (6) Major depressive disorder: Plan: Chronic. Stable Continue Sertraline 100mg po daily Plan Repleted potassium DVT proph-Eliquis CODE STATUS: DNR/DNI Admission and Anticipated Discharge Date Admission Date: April 02, 2024 Subjective Patient seen and evaluated at bedside. She is stable on room air today. She is oriented to her baseline. Per nursing, her bowel movements have slowed down and she has only had 1 bowel movement so far today. Patient has no complaints at this time. Physical Exam Physical Exam: General: No acute distress, nondiaphoretic. Frail, elderly female. Skin: The skin was without rashes, erythema, edema, or bruising. Cardiac: Regular rate and rhythm without murmurs gallops or rubs. Pulm: Equal air entry bilaterally, faint crackles in bilateral bases, no rhonchi or wheezes. No respiratory distress. Stable on room air. Abdominal: Positive bowel sounds x 4. Soft, nontender, without masses or organomegaly. No guarding or rebound tenderness. Neuro: A&O x3. No focal neurological deficits. Results & Data Results & Data Vital Signs (Past 12 Hours) Vital Signs Temp Pulse Pulse Resp BP BP Pulse Ox 04/03/24 11:41 36.7 C 83 16 170/76 H 90 04/03/24 08:27 92 04/03/24 08:14 37.0 C 124 H 16 208/82 H 90 04/03/24 07:29 04/03/24 07:13 91 H 04/03/24 04:07 36.6 C 86 18 182/88 H 90 O2 Del Method O2 Flow Rate 04/03/24 11:41 Room Air 04/03/24 08:27 Nasal Cannula 04/03/24 08:14 Room Air 04/03/24 07:29 Nasal Cannula 1 04/03/24 07:13 04/03/24 04:07 Nasal Cannula 1 Laboratory Results Reviewed CBC Reviewed BMP, repleted K PG Care Time/CCT Total # of Minutes Spent Total Time Spent with Patient: Total time spent is greater than 50% in coordination of care (as documented) at patient's floor/unit and/or counseling patient: Coding Level of Care Code 48730 SUB INP/OBS CARE 235MIN Diagnoses Acute encephalopathy G93.40 Paroxysmal atrial fibrillation I48.0 Hypertension I10 Pulmonary nodule R91.1 B12 deficiency E53.8 Major depressive disorder F32.9
[2024-04-03] MEDS: hydrALAZINE HCL 20 MG/ML VIAL IV ONE (22:51)
[2024-04-04] MEDS: MELATONIN 3 MG TAB PO PRN (00:07)
--- NOTE | 2024-04-04 07:34 | XRay Report ---
SINGLE VIEW CHEST CLINICAL HISTORY: Cough. Hypoxia FINDINGS: 2 AP, portable, upright chest radiographs are compared to study dated 03/30/2024 and correlat ed with chest CT dated 03/31/2024. The examination is degraded by portable technique and patient rotati on. The heart is mildly enlarged noting atherosclerotic calcification of the thoracic aorta. The pul monary vasculature is noncontrast. Chronic interstitial thickening is similar to previous. Mild patch y airspace consolidation is again seen in the right upper lung. No large pleural effusion or pneumoth orax is identified. Atelectasis is noted at the left lung base. Foci of parenchymal scarring are seen throughout both lungs. The skeletal structures are osteopenic. The bony thorax is grossly intact. De generative change and scoliosis is noted in the spine. IMPRESSION: 1. Mild patchy airspace consolidation is again seen in the right upper lobe. Radiographic follow-up t o resolution is recommended. 2. Cardiomegaly without radiographic evidence of congestive failure. ACT 112: Negative or not required by law. Electronically signed by: Jovanny Fulton M.D. 04/04/2024 7:33 AM
[2024-04-04 07:52] LABS: Hematocrit (blood only) 43.4 % (37.0-47.0); Hemoglobin 14.1 g/dl (12.0-16.0); Mean Corpuscular Hemoglobin 29.9 pg (25.0-34.0); Mean Corpuscular Hgb Conc 32.5 g/dL (32.0-36.0); Mean Corpuscular Volume 91.9 fL (80.0-100.0); Mean Platelet Volume 10.9 fL (9.4-12.4); Platelet Count 180 K/uL (130-400); RDW Coefficient of Variation 12.2 % (11.5-14.5); Red Blood Count 4.72 M/uL (4.20-5.40); White Blood Count 7.34 K/ul (4.8-10.8)
[2024-04-04 08:39] LABS: BUN Creatinine Ratio 35.3 (10-20); Creatinine Clr Calc Pharmacy 39.9 ml/min; Est GFR (African American) 89.9 ml/min; Est GFR (Non-African American) 77.6 ml/min; Magnesium 1.8 mg/dl (1.7-2.4); Potassium 3.8 mmol/L (3.5-5.1)
[2024-04-04] MEDS: CYANOCOBALAMIN (B-12) 500 MCG TABLET PO SCH (08:39)
--- NOTE | 2024-04-04 10:28 | Hospitalist Progress Note ---
Date of Service April 04, 2024 Assessment & Plan (1) Acute encephalopathy: Plan: - Presented with 3 days of confusion, generalized weakness, decreased functional status. Symptoms have been going on for about 2 weeks, but much worse in the 2 days leading to admission. Presented with waxing and waning mental status and inattention. - Patient recently completed antibiotic course for UTI. - On admission, viral respiratory BioFire negative, Lyme negative, NH3 level n ormal, B12 mildly low, afebrile. - B1 level pending. - Hypertensive encephalopathy? Patient's BP > 200 on arrival. - CT head negative for acute. - Checked CT C/A/P 03/31/24 given previous chest abnormalities with multiple pulm nodules and abdominal tenderness on exam. -- CT chest 03/31/2024 revealed RUL possible pneumonitis, otherwise nothing abnormal in abdomen that is acute. -- Patient tachypneic and borderline low O2, empirically started on ertapenem and azithromycin due to antibiotic allergies. -- Procal normal. Identified sources of infection as noted below. Ertapenem and azithromycin discontinued on 04/02/2024 - Also, review of [facility] website shows recent Rx for lorazepam bid which appears to be a new medication for her in the last week prior to admission. - Positive C. difficile 04/01/24. Continue oral vancomycin until 04/11/2024. - Blood cultures negative x 48 hours. - Morning of 04/01/2024, patient had episode of tachycardia, tachypnea, acute change in mental status, flushed appearance especially noted on her face, and shaking/rigors. -- Given IV Benadryl, with symptom resolution. Vital signs stable in afternoon. - Urine culture from 03/31/24 reveals Enterococcus faecium VRE, sensitive to daptomycin. Daptomycin started 04/02/24, last dose 04/12/24. - Patient had episode of hallucinations of mother and dog in the night on 04/04/2024. -- Given one-time dose of hydralazine IV and melatonin. -- CXR revealed mild patchy airspace consolidations in the right upper lobe. Recommend follow-up chest CT in 1 month to monitor progression/resolution. (2) Paroxysmal atrial fibrillation: Plan: Is in NSR, but had frequent PAT and possibly short paroxysms of Aflutter. Anticoagulated on Eliquis - recently transitioned from Coumadin Continue Metoprolol 25mg po BID Continue Eliquis 2.5mg po BID Patient is on ASA as well, unsure of indication? (3) Hypertension: Plan: Blood pressure elevated on arrival. Possibly contributing to patient's confusion Continue home Metoprolol 25mg po BID Increase Amlodipine to 5mg po daily Discontinued prn clonidine to avoid rebound HTN and added IV hydralazine x 1 (4) Pulmonary nodule: Plan: noted on CT chest, likely due to previous MAC but also with new RUL nodules could be new infection (5) B12 deficiency: Plan: B12 level mildly low at 205 start IM B12 1000 x 3 days and then po (6) Major depressive disorder: Plan: Chronic. Stable Continue Sertraline 100mg po daily Plan Ordered ultrasound-guided peripheral IV for continuation of daptomycin upon discharge Patient is medically stable for discharge. Waiting for placement back at the [facility]. DVT proph-Eliquis CODE STATUS: DNR/DNI Admission and Anticipated Discharge Date Admission Date: April 02, 2024 Physical Exam Physical Exam: General: No acute distress, nondiaphoretic. Frail, elderly female. Skin: The skin was without rashes, erythema, edema, or bruising. Cardiac: Regular rate and rhythm without murmurs gallops or rubs. Pulm: Equal air entry bilaterally, faint crackles in bilateral bases, no rhonchi or wheezes. No respiratory distress. Stable on room air. Abdominal: Positive bowel sounds x 4. Soft, nontender, without masses or organomegaly. No guarding or rebound tenderness. Neuro: A&O x3. No focal neurological deficits. Results & Data Results & Data Vital Signs (Past 12 Hours) Vital Signs Temp Pulse Pulse Resp BP Pulse Ox O2 Del Method 04/04/24 09:06 Nasal Cannula 04/04/24 07:27 37.2 C 71 15 161/79 H 98 Nasal Cannula 04/04/24 07:05 68 04/04/24 04:12 75 04/04/24 03:47 37 C 89 20 161/84 H 89 L Room Air 04/04/24 02:15 Nasal Cannula 04/03/24 23:05 77 16 174/79 H 97 Nasal Cannula 04/03/24 22:26 36.9 C 96 H 18 202/99 H 89 L Room Air O2 Flow Rate 04/04/24 09:06 1 04/04/24 07:27 2 04/04/24 07:05 04/04/24 04:12 04/04/24 03:47 04/04/24 02:15 1 04/03/24 23:05 1 04/03/24 22:26 Laboratory Results Reviewed CBC Reviewed BMP PG Care Time/CCT Total # of Minutes Spent Total Time Spent with Patient: Total time spent is greater than 50% in coordination of care (as documented) at patient's floor/unit and/or counseling patient: Coding Level of Care Code 66349 SUB INP/OBS CARE 2/35MIN Diagnoses Acute encephalopathy G93.40 Paroxysmal atrial fibrillation I48.0 Hypertension I10 Pulmonary nodule R91.1 B12 deficiency E53.8 Major depressive disorder F32.9
--- NOTE | 2024-04-04 16:54 | Discharge Summary ---
Discharge Summary Date of Service April 04, 2024 Notes For Next Care Provider Medication Changes From Visit Amlodipine increased to 5 mg p.o. daily Started vitamin B-12 supplementation Oral vancomycin until 04/11/2024 for C. difficile Daptomycin until 04/12/2024 for Enterococcus faecium VRE UTI Admission HPI Per Admitting Provider Roel Pinto is a pleasant 88yo female with history of PAF, HTN and recent cystitis s/p course of Cefdinir for Klebsiella UTI (dx 03/18 - completed antibiotics on 03/24/24) presenting from [facility] with concern for confusion. Patient by report is fairly independent at baseline. She is able to feed herself, dress and undress herself. No report of dementia or confusion. However, over the last two day she has had worsening confusion, possible yanes llucinations. She has been calling out to her and unable to ambulate, feed herself or dress/undress herself. This is a fairly acute manager of change the last several days. Patient does not know why she is in the hospital. She has no acute complaints at the moment. She comments on chronic intermittent diarrhea as well as some intermittent abdominal pain but now does not have either. No report of fever, chills, sweats or rigors. No chest pain, cough or SOB. No abdominal pain, nausea, vomiting, diarrhea or constipation. No dysuria or pelvic complaints. In the ER she is afebrile, hypertensive Recently changed from Coumadin to Eliquis for her PAF anticoagulation/stroke prevention Admission Exam Per Admitting Provider General: frail, elderly female patient resting comfortably, NAD, non-toxic in appearance,oriented to self and hospital. Inattentive and easily distractible. Picking at blankets at times during interview. Skin: warm, dry, intact, no rashes or lesions HEENT: NC/AT, PERRL, EOMI, anicteric sclera, conjunctiva without injection, external ear normal to inspection and nontender, nares patent, moist mucus membranes, dentition intact, no oropharyngeal lesions, neck supple, trachea midline, no LAD, no thyromegaly, no JVD Heart: +S1/S2, regular with ectopy, no m/r/g Lungs: equal air entry bilaterally, faint crackles in bilateral bases, no rhonchi or wheeze Abd: +BS, soft, NT/ND, no masses/organomegaly/ascites, PureWick catheter in place Ext: warm, 2+ pulses in UE/LE bilaterally, no clubbing/cyanosis or edema Neuro: nonfocal, patient AA&O x 2, speech intact, no facial droop, moving all extremities on command with equal strength 5/5, inattentive Principal Dx & Hospital Course #1 = Principal Diagnosis (1) Acute encephalopathy: - Presented with 3 days of confusion, generalized weakness, decreased functional status. Symptoms have been going on for about 2 weeks, but much worse in the 2 days leading to admission. Presented with waxing and waning mental status and inattention. Cachexia with BMI=16. - Patient recently completed antibiotic course for UTI. - On admission, viral respiratory BioFire negative, Lyme negative, NH3 level normal, B12 mildly low, afebrile. - B1 level pending. - Hypertensive encephalopathy? Patient's BP > 200 on arrival. - CT head negative for acute. - Checked CT C/A/P 03/31/24 given previous chest abnormalities with multiple pulm nodules and abdominal tenderness on exam. -- CT chest 03/31/2024 revealed RUL possible pneumonitis, otherwise nothing abnormal in abdomen that is acute. -- Patient tachypneic and borderline low O2, empirically started on ertapenem and azithromycin due to antibiotic allergies. -- Procal normal. Identified sources of infection as noted below. Ertapenem and azithromycin discontinued on 04/02/2024 - Also, review of PDMP website shows recent Rx for lorazepam bid which appears to be a new medication for her in the last week prior to admission. - Positive C. difficile 04/01/24. Continue oral vancomycin until 04/11/2024. - Blood cultures negative. - Morning of 04/01/2024, patient had episode of tachycardia, tachypnea, acute change in mental status, flushed appearance especially noted on her face, and shaking/rigors. -- Given IV Benadryl, with symptom resolution. Vital signs stable in afternoon. - Urine culture from 03/31/24 reveals Enterococcus faecium VRE, sensitive to daptomycin. Daptomycin started 04/02/24, last dose 04/12/24. -- Ultrasound-guided peripheral IV placed 04/04/2024 for continuation of daptomycin upon discharge. - Patient had episode of hallucinations of mother and dog in the night on 04/03/2024. -- Given one-time dose of hydralazine IV and melatonin. Patient oriented to baseline at the time of my assessment in the morning of 04/04. -- CXR revealed mild patchy airspace consolidations in the right upper lobe. Recommend follow-up chest CT in 1 month to monitor progression/resolution. (2) Paroxysmal atrial fibrillation: Is in NSR, but had frequent PAT and possibly short paroxysms of Aflutter. Anticoagulated on Eliquis - recently transitioned from Coumadin Continue Metoprolol 25mg po BID Continue Eliquis 2.5mg po BID Patient is on ASA as well, unsure of indication? (3) Hypertension: Blood pressure elevated on arrival. 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 (5) B12 deficiency: B12 level mildly low at 205 IM B12 1000 x 3 days and then continue with PO supplementation (6) Major depressive disorder: Chronic. Stable Continue Sertraline 100mg po daily Plan Ultrasound-guided peripheral IV placed on 04/04/2024 for continuation of daptomycin upon discharge [facility]24 CODE STATUS: DNR/DNI Discharge Exam General: No acute distress, nondiaphoretic. Frail, elderly female. Skin: The skin was without rashes, edema, or bruising. Erythema noted on back and buttocks. Cardiac: Regular rate and rhythm without murmurs gallops or rubs. Pulm: Equal air entry bilaterally, faint crackles in bilateral bases, no rhonchi or wheezes. No respiratory distress. Abdominal: Positive bowel sounds x 4. Soft, nontender, without masses or organomegaly. No guarding or rebound tenderness. Neuro: A&O x2 (baseline). No focal neurological deficits. Updated Medication List Medication Instructions Recorded Confirmed Type calcium carbonate (Calcium 600) 600 mg PO DAILY 12/03/21 03/30/24 History aspirin 81 mg tablet,delayed 81 mg PO QAM #30 tabs 12/01/22 03/30/24 Rx release Probiotic Gummy 2 tab PO QAM 11/06/23 03/30/24 History acetaminophen 500 mg tablet 500 mg PO Q4H PRN Pain 11/06/23 11/06/23 History (Tylenol Extra Strength) albuterol sulfate 90 mcg/actuation 2 puff inhalation Q6H PRN Wheezing 11/06/23 03/30/24 History aerosol inhaler ceftriaxone 1 gram solution for 1 g IM QPM 11/06/23 11/06/23 History injection cranberry fruit concentrate 500 mg 1,000 mg PO HS 11/06/23 03/30/24 History capsule (Cran-Max) metoprolol tartrate 25 mg tablet 25 mg PO BID 11/06/23 03/30/24 History warfarin 2.5 mg tablet 2.5 mg PO HS 11/06/23 11/06/23 History albuterol sulfate 2.5 mg/3 mL mg 03/30/24 History (0.083 %) solution for nebulization amlodipine 2.5 mg tablet 2.5 mg PO DAILY 03/30/24 03/30/24 History apixaban 2.5 mg tablet (Eliquis) 2.5 mg PO BID 03/30/24 03/30/24 History lorazepam 0.5 mg tablet 0.5 mg PO BID PRN Anxiety 03/30/24 03/30/24 History melatonin 3 mg PO HS PRN Insomnia 03/30/24 03/30/24 History sertraline 100 mg tablet 100 mg PO DAILY 03/30/24 03/30/24 History cyanocobalamin (vitamin B-12) 500 1,000 mcg (2 x 500 mcg) PO QAM #30 04/04/24 Rx mcg tablet tabs vancomycin 1,000 mg intravenous 125 mg PO Q6 #28 ea 04/04/24 Rx injection Hospital Stay Data Consultations 03/30/24 23:19 ED Decision to Admit Stat Diagnostic Imagining Performed 03/30/24 18:31 CT head/brain wo con Stat 03/31/24 16:35 CT abd pelvis IV con only Urgent 03/31/24 16:47 CT chest diagnostic w con Routine Pending Results Patient Have Any Pending Studies at Discharge: No Discharge Instructions Given to Patient (Per Discharging Provider) FOR [facility]: Mrs. Pinto was admitted to the hospital for acute encephalopathy. She was found to be positive for C. difficile, as well as positive for Enterococcus faecium VRE UTI. Patient was started on oral vancomycin for the C. difficile infection, and IV daptomycin for the UTI. An ultrasound-guided peripheral IV was placed on 04/04/2024 for continuation of daptomycin upon discharge. Upon discharge: * Continue oral vancomycin every 6 hours, last dose on 04/11/2024. * Continue IV daptomycin every 24 hours, last dose 04/12/2024. * Increased amlodipine to 5 mg p.o. daily, continue. * Started on vitamin B12 supplementation, continue. * Recommend follow-up chest CT in 1 month to monitor progression/resolution of mild patchy airspace consolidations in right upper lobe of lung. Thank you, Hannah Heck PA-C Total Time Total Time Spent Total Time Spent (In Minutes): Greater than 30 minutes spent completing this discharge process including direct patient care, medication reconciliation, documentation, review of labs and images, and coordination of care. Coding Level of Care Code 16000 INP/OBS DISCH >30 MIN Diagnoses Acute encephalopathy G93.40 Paroxysmal atrial fibrillation I48.0 Hypertension I10 Pulmonary nodule R91.1 B12 deficiency E53.8 Major depressive disorder F32.9
== END 2024-04-04 19:33 | DRG 371 ==
LOC: ED 17:06 → 2N 17:06 → SUATTDRO 23:59 → 2N 03-31 02:15